=== PATIENT | male | born 1960 | race African-American/Black ===

== ENCOUNTER 2017-08-14 10:39 | Inpatient (IN) | payer MEDICAID ==
--- NOTE | 2017-08-14 11:00 | ED Physician Chart ---
ED Chief Complaint/HPI - Patient Information Date Seen:: 08/14/17 Time Seen:: 10:58 Chief Complaint:: HEMATURIA UNKN ONSET History of Present Illness:: THIS 57 YEAR OLD MALE WAS SENT TO THE ER FOR EVALUATION OF HEMATURIA. THE PT HAS MS AND IS UNABLE TO TALK OR COMMUNICATE. THE ONSE5T OF THE HEMATURIA WAS 6 AM THIS MORNING. NO REPORTED FEVER BUT WE ARE CHECKING A RECTAL TEMP. NO FURTHER INFORMATION ACCOMPANIED THE PATIENT. Allergies:: Allergies Allergy/AdvReac Type Severity Reaction Status Date / Time Penicillins [PCN] AdvReac Verified 08/14/17 10:47 Vitals:: Vital Signs - 8 hr 08/14/17 10:47 Temp 99.7 F HR 120 RR 15 BP 89/63 O2 Sat % 100 Family Medical History - Family Member Mother History Unknown: Yes ED Assessment - Assessment General Assessment: PT MORE ALERT WITH SPONTANEOUS EYE OPENING. BP AT 1208 HRS OF 116/72 ( BP AT ED Septic Shock - . Is Septic Shock (SBP<90, OR Lactate>4 mmol\L) present?: No - <6hrs of presentation: Vital Signs: Vital Signs - 8 hr 08/14/17 10:47 Temp 99.7 F HR 120 RR 15 BP 89/63 O2 Sat % 100 ED Discharge Plan - Patient Disposition Admit/Discharge/Transfer: Acute Care w/in this hosp
[2017-08-14] MEDS ORDERED: Sodium Chloride 0.9% 1,000 ML IV ONE (11:10)
[2017-08-14] MEDS ORDERED: Sodium Chloride 0.9% 500 ML IV ONE (11:13)
[2017-08-14] MEDS ORDERED: Levofloxacin 750mg/150mL 750 MG/150 ML BAG IV ONE ×2 (11:20→12:26)
[2017-08-14 11:45] LABS: HEMATOCRIT 39.3 % (41.0-60); HEMOGLOBIN 13.1 gm/dL (12-16); MEAN CELL VOLUME 87.3 fl (80-99); MEAN CORPUSCULAR HEMOGLOBIN 29.1 pg (26.0-30.0); MEAN CORPUSCULAR HGB CONC 33.3 pg (28.0-36.0); MEAN PLATELET VOLUME 7.3 fl; PLATELET COUNT 623 Th/cmm (150-400); RED CELL DISTRIBUTION WIDTH 13.7 % (11.5-20.0)
[2017-08-14 11:49] LABS: MANUAL DIFF REQUIRED? YES; WHITE BLOOD COUNT 17.2 Th/cmm (4.8-10.8)
[2017-08-14 12:06] LABS: ALB/GLOB RATIO 0.6 (1.0-1.8); ALKALINE PHOSPHATASE 96 U/L (34-104); BILIRUBIN,TOTAL 0.6 mg/dL (0.3-1.0); BUN - UREA NITROGEN 24 mg/dL (7-25); CALCIUM SERUM 9.4 mg/dL (8.6-10.3); CARBON DIOXIDE 24.4 mEq/L (21.0-31.0); CHLORIDE 103 mEq/L (98-107); CREATININE - SERUM 0.9 mg/dL (0.7-1.3); GFR AFRICAN-AMERICAN > 60.0 ml/min (>90); GFR NON AFRICAN-AMERICAN > 60.0 ml/min; GLUCOSE 126 mg/dL (70-105); POTASSIUM SERUM 4.4 mEq/L (3.5-5.1); SGOT 21 U/L (13-39); SGPT/ALT 22 U/L (7-52); SODIUM SERUM 136 mEq/L (136-145); TOTAL PROTEIN,SERUM 8.4 gm/dL (6.0-8.3)
[2017-08-14 12:09] LABS: BAND NEUTROPHILE 7 % (0-10); NEUTROPHILS 83 % (40-80); TOTAL CELLS COUNTED 100
[2017-08-14 12:10] LABS: BASOPHIL 1 % (0-3); LYMPHOCYTE 3 % (20-50); MONOCYTE 6 % (2-10); PLATELET ESTIMATE INCREASED PLATELETS (NORMAL)
[2017-08-14 12:41] LABS: URINE MICROSCOPIC INDICATED? YES; URINE SOURCE RANDOM
[2017-08-14 12:52] LABS: URINE BILIRUBIN SMALL (NEGATIVE); URINE BLOOD LARGE (NEGATIVE); URINE GLUCOSE (UA) 100 mg/dL (NEGATIVE); URINE KETONE NEGATIVE (NEGATIVE); URINE LEUKOCYTE ESTERASE TRACE (NEGATIVE); URINE NITRATE POSITIVE (NEGATIVE); URINE PROTEIN >=300 mg/dL (NEGATIVE)
[2017-08-14 13:16] LABS: URINE CLARITY BLOODY (CLEAR); URINE COLOR RED
[2017-08-14 13:20] LABS: URINE RBC >100 /hpf (0-5)
[2017-08-14] MEDS ORDERED: Morphine Sulfate 2 mg/mL 1mL Syr IVP PRN (14:50)
[2017-08-14] MEDS: D5-0.9%NS 1,000 ML IV SCH (15:31)
[2017-08-14 15:51] LABS: INR 1.17 (0.5-1.4); PROTHROMBIN TIME (TEST) 12.3 SECONDS (9.5-11.5)
--- NOTE | 2017-08-14 16:46 | History & Physical ---
ADMIT DATE: 08/14/2017 CHIEF COMPLAINT: Gross blood in the urine. HISTORY OF PRESENT ILLNESS: This is a 57-year-old male with history of multiple sclerosis, multiple decubitus ulcerations and malnutrition admitted from nursing facility secondary to gross blood in the urine. The patient was brought in the ER, also with a urinary tract infection. The patient is nonverbal and not interactive. PAST MEDICAL HISTORY: As mentioned in history of present illness. PAST SURGICAL HISTORY: Unable to obtain from the patient. ALLERGIES: PENICILLIN. MEDICATIONS: The patient is on multivitamin, zinc, aspirin, baclofen, and Copaxone. FAMILY HISTORY: Noncontributory. SOCIAL HISTORY: The patient [facility] in a prison. The patient requiring 24-hour total care. REVIEW OF SYSTEMS: This is limited secondary to the patient's comatose. We will try to obtain more detailed review of systems at a later date by talking with family members ____ number [phone], also try to get more information from nursing staff and ____ nursing facility at #[phone] as well as from Dr. Quiñones. I will follow the patient. PHYSICAL EXAMINATION: VITAL SIGNS: Blood pressure 116/73, respirations 20, pulse 114, temperature 99. GENERAL: Elderly male, appears chronically ill. NECK: Supple. No mass. LUNGS: Equal breath sounds, few rhonchi. HEART: Regular rate and rhythm without appreciable murmurs. ABDOMEN: Soft, globular. EXTREMITIES: Positive excoriations, atrophy, decubitus ulcer ____. LABORATORY DATA: WBC 17, hemoglobin 18, platelets is 623, BUN 24, creatinine 0.9, blood sugar 126, albumin 3.0. UA, positive nitrite and leukocyte esterase. ASSESSMENT AND PLAN: 1. Sepsis. 2. Leukocytosis. 3. UTI. 4. Decubitus ulcer. 5. Multiple sclerosis. 6. Schizoaffective disorder. 7. Moderate protein-calorie malnutrition. We will continue with IV hydration, IV antibiotic. We will irrigate the bladder. Urology has been consulted. Continue with current care. Follow consult recommendations. JOB# [id number]
[2017-08-14] MEDS ORDERED: GLATIRAMER ACETATE 20 MG SQ SCH (17:00)
[2017-08-14] MEDS: Levofloxacin 500mg/100mL 500 MG/100 ML BAG IV SCH (17:19)
--- NOTE | 2017-08-14 17:56 | Consultation ---
DATE OF CONSULTATION: UROLOGY CONSULTATION REASON FOR CONSULTATION: Seen for gross hematuria. HISTORY OF PRESENT ILLNESS: This is a 57-year-old male who came to the Emergency Room with gross hematuria in the Salmeron catheter, this started at 6:00 a.m. The patient is here from a [facility] and does not provide any history. We are calling the [facility] to get more information. Apparently, he is bedridden with contractures and has a Salmeron catheter for unknown period of time. There is no family member at the bedside either. ALLERGIES: PENICILLIN. HOME MEDICATIONS: Tylenol, aspirin, baclofen, Copaxone, vitamins, and zinc. PAST SURGICAL HISTORY: Unknown. PAST MEDICAL HISTORY: Apparently multiple sclerosis, but no other information is available. REVIEW OF SYSTEMS: No fever recorded, chest pain, coughing, or shortness of breath reported. He is tolerating the G-tube feeding. There are no skin lesions seen, but he has contractures in all 4 extremities. PHYSICAL EXAMINATION: GENERAL: On exam, he is noncommunicative, has a mask-like appearance. VITAL SIGNS: Heart rate 112, blood pressure 116/72, temperature 99.7, highest recorded so far. HEAD AND NECK: Normocephalic. Trachea central. Pupils equal and reactive. No jaundice. Thyroid and lymph nodes not palpable. Carotid bruit absent. CHEST: Symmetrical. LUNGS: Clear. No rales or rhonchi. HEART: Sounds normal in sinus rhythm, no murmur. ABDOMEN: Somewhat firm. Bladder seems to be palpable and distended, but the patient is unable to relax and therefore exam is difficult. For the same reason, cannot palpate any organs or masses or hernia. GENITALIA: Unremarkable. Salmeron catheter size 16 with gross thick blood. The nurses irrigated the catheter at my instruction, but did not get any clots. RECTAL: Deferred. EXTREMITIES: Contracted, but without pedal edema. NEUROLOGIC: Unable to test, seems to have quadriparesis. LABORATORY DATA: White count 17.2, hemoglobin 13.1, and platelets 623. PT/INR 1.1, PTT normal. Electrolytes normal. BUN 24, creatinine 0.9, and glucose 126. Liver functions are normal. Urine shows trace leukocytes, but a lot of blood. IMPRESSION: 1. Gross hematuria either from catheter related trauma or cystitis, rule out upper tract pathology. Recommend call and get information from the [facility], specifically any workup in the last 6 months with ultrasound or CT scan. 2. Question is to find out if he ever had bleeding again and any urologic surgery. Lastly how long he has had the Salmeron catheter and how often it is being changed and history of urinary tract infection so far. After this for the line of treatment and testing can be determined. Ultrasound of the kidneys and bladder is being performed as I dictate the note. He may require cystoscopy and clot evacuation if his bladder is distended with clots and we are unable to remove them with a larger Salmeron catheter. 3. Multiple sclerosis, possibly an unknown neurological condition, making him noncommunicative. 4. G-tube dependency. Thank you for the referral. JOB# [id number]
[2017-08-15] MEDS: D5-0.9%NS 1,000 ML IV SCH ×2 (05:22→19:10)
[2017-08-15 06:33] LABS: HEMOGLOBIN 11.1 gm/dL (12-16); LYMPHOCYTE ABSOLUTE 0.4 Th/cmm (1.5-3.0); MANUAL DIFF REQUIRED? YES; MEAN CELL VOLUME 86.7 fl (80-99); MEAN CORPUSCULAR HEMOGLOBIN 29.4 pg (26.0-30.0); MEAN CORPUSCULAR HGB CONC 33.9 pg (28.0-36.0); MEAN PLATELET VOLUME 7.4 fl; MONOCYTE ABSOLUTE 0.3 Th/cmm (0.3-1.0); NEUTROPHILE ABSOLUTE 17.1 Th/cmm (1.8-8.0); RED BLOOD COUNT 3.77 Mil/cmm (4.30-5.70); RED CELL DISTRIBUTION WIDTH 13.8 % (11.5-20.0)
[2017-08-15 06:48] LABS: ALB/GLOB RATIO 0.6 (1.0-1.8); ALBUMIN 2.5 gm/dL (4.2-5.5); ALKALINE PHOSPHATASE 94 U/L (34-104); ANION GAP 11.6 (7.0-16.0); BILIRUBIN,TOTAL 0.6 mg/dL (0.3-1.0); BUN - UREA NITROGEN 37 mg/dL (7-25); CALCIUM SERUM 8.8 mg/dL (8.6-10.3); CARBON DIOXIDE 20.4 mEq/L (21.0-31.0); CHLORIDE 110 mEq/L (98-107); CREATININE - SERUM 1.4 mg/dL (0.7-1.3); GFR AFRICAN-AMERICAN > 60.0 ml/min (>90); GFR NON AFRICAN-AMERICAN 55.3 ml/min; GLUCOSE 145 mg/dL (70-105); SGOT 28 U/L (13-39); SGPT/ALT 20 U/L (7-52); SODIUM SERUM 138 mEq/L (136-145)
[2017-08-15 07:05] LABS: WHITE BLOOD COUNT 17.8 Th/cmm (4.8-10.8)
[2017-08-15 07:06] LABS: HEMATOCRIT 32.7 % (41.0-60); PLATELET COUNT 492 Th/cmm (150-400)
[2017-08-15] MEDS: Multivitamin w/ Minerals Tab PO SCH (08:36)
[2017-08-15] MEDS ORDERED: Non-Formulary Item 1 EA (Zinc Sulfate [Zinc Sulfate] 220 MG) PO SCH (09:00)
--- NOTE | 2017-08-15 10:15 | Diagnostic Imaging Report ---
Portable chest x-ray History: Fever Allowing for portable technique the heart size is normal. No focal pulmonary parenchymal processes. No hilar or mediastinal abnormalities. Metallic density projects over the left upper abdomen. Impression: 1. No acute pulmonary processes 2. Metallic density projecting over the left upper abdomen
--- NOTE | 2017-08-15 10:19 | Diagnostic Imaging Report ---
Renal ultrasound HISTORY: Hematuria The right kidney measures 12.7 x 6.1 x 5.2 cm. A 5 mm slightly echogenic density is noted in the medullary region. This may be related to a calculus. No hydronephrosis. The left kidney measures 11.1 x 6.0 x 5.7 cm. No focal lesions. No hydronephrosis. Intraluminal densities noted within the urinary bladder. In view the patient's history, findings may be associated with hematoma. A reported Salmeron catheter is not sonographically identified within the bladder lumen. IMPRESSION: 1. 5 mm echogenic density within the medullary region of the right kidney. This may be related to a calculus. No hydronephrosis. If necessary, a CT scan would provide additional assessment. 2. Intraluminal density/debris within the urinary bladder. In view the patient's history, findings may be associated with hematoma 3. Of note is that a reported Salmeron catheter is not visualized within the urinary bladder lumen. Location should be confirmed.
[2017-08-15 11:43] LABS: BAND NEUTROPHILE 10 % (0-10); LYMPHOCYTE 2 % (20-50); MONOCYTE 1 % (2-10); NEUTROPHILS 87 % (40-80); TOTAL CELLS COUNTED 100
[2017-08-15 11:44] LABS: PLATELET ESTIMATE INCREASED PLATELETS (NORMAL)
[2017-08-15] MEDS: Levofloxacin 500mg/100mL 500 MG/100 ML BAG IV SCH (14:01)
--- NOTE | 2017-08-15 15:43 | Internal Medicine Prog Note ---
Internal Medicine Subjective - Subjective Patient seen and examined:: with staff, chart reviewed Patient is:: asleep, interactive, eyes closed, confused Patient Complaints of:: pain with urination Per staff patient has:: noncompliant, confused Internal Medicine Objective - Results Result Diagrams: 08/15/17 05:45 08/15/17 05:45 Recent Labs: Laboratory Last Values WBC 17.8 Th/cmm (4.8-10.8) H 08/15/17 05:45 RBC 3.77 Mil/cmm (4.30-5.70) L 08/15/17 05:45 Hgb 11.1 gm/dL (12-16) L 08/15/17 05:45 Hct 32.7 % (41.0-60) L D 08/15/17 05:45 MCV 86.7 fl (80-99) 08/15/17 05:45 MCH 29.4 pg (26.0-30.0) 08/15/17 05:45 MCHC Differential 33.9 pg (28.0-36.0) 08/15/17 05:45 RDW 13.8 % (11.5-20.0) 08/15/17 05:45 Plt Count 492 Th/cmm (150-400) H D 08/15/17 05:45 MPV 7.4 fl 08/15/17 05:45 Band Neutrophils % 10 % (0-10) 08/15/17 05:45 Neutrophils (Manual) 87 % (40-80) H 08/15/17 05:45 Lymphocytes 2 % (20-50) L 08/15/17 05:45 Monocytes 1 % (2-10) L 08/15/17 05:45 Basophils 1 % (0-3) 08/14/17 11:23 Platelet Estimate INCREASED PLATELETS (NORMAL) 08/15/17 05:45 PT 12.3 SECONDS (9.5-11.5) H 08/14/17 15:28 INR 1.17 (0.5-1.4) 08/14/17 15:28 PTT (Actin FS) 33.8 SECONDS (26.0-38.0) 08/14/17 15:28 Sodium 138 mEq/L (136-145) 08/15/17 05:45 Potassium 4.0 mEq/L (3.5-5.1) 08/15/17 05:45 Chloride 110 mEq/L (98-107) H 08/15/17 05:45 Carbon Dioxide 20.4 mEq/L (21.0-31.0) L 08/15/17 05:45 Anion Gap 11.6 (7.0-16.0) 08/15/17 05:45 BUN 37 mg/dL (7-25) H 08/15/17 05:45 Creatinine 1.4 mg/dL (0.7-1.3) H 08/15/17 05:45 Est GFR ( Amer) > 60.0 ml/min (>90) 08/15/17 05:45 Est GFR (Non-Af Amer) 55.3 ml/min 08/15/17 05:45 BUN/Creatinine Ratio 26.4 08/15/17 05:45 Glucose 145 mg/dL (70-105) H 08/15/17 05:45 POC Glucose 143 MG/DL (70 - 105) H 08/14/17 17:42 Whole Bld Lactic Acid 1.56 mmol/L (0.60-1.99) 08/14/17 11:23 Calcium 8.8 mg/dL (8.6-10.3) 08/15/17 05:45 Total Bilirubin 0.6 mg/dL (0.3-1.0) 08/15/17 05:45 AST 28 U/L (13-39) 08/15/17 05:45 ALT 20 U/L (7-52) 08/15/17 05:45 Alkaline Phosphatase 94 U/L (34-104) 08/15/17 05:45 B-Natriuretic Peptide < 5.0 pg/mL (5.0-100.0) L 08/15/17 05:45 Total Protein 7.0 gm/dL (6.0-8.3) 08/15/17 05:45 Albumin 2.5 gm/dL (4.2-5.5) L 08/15/17 05:45 Globulin 4.5 gm/dL 08/15/17 05:45 Albumin/Globulin Ratio 0.6 (1.0-1.8) L 08/15/17 05:45 Urine Source RANDOM 08/14/17 12:30 Urine Color RED 08/14/17 12:30 Urine Clarity BLOODY (CLEAR) 08/14/17 12:30 Urine pH 8.0 (4.6 - 8.0) 08/14/17 12:30 Ur Specific [place] 1.020 (1.005-1.030) 08/14/17 12:30 Urine Protein >=300 mg/dL (NEGATIVE) 08/14/17 12:30 Urine Glucose (UA) 100 mg/dL (NEGATIVE) H 08/14/17 12:30 Urine Ketones NEGATIVE mg/dL (NEGATIVE) 08/14/17 12:30 Urine Blood LARGE (NEGATIVE) H 08/14/17 12:30 Urine Nitrate POSITIVE (NEGATIVE) H 08/14/17 12:30 Urine Bilirubin SMALL (NEGATIVE) H 08/14/17 12:30 Urine Urobilinogen 1.0 E.U./dL (0.2 - 1.0) 08/14/17 12:30 Ur Leukocyte Esterase TRACE (NEGATIVE) H 08/14/17 12:30 Urine RBC >100 /hpf (0-5) H 08/14/17 12:30 Urine WBC /hpf (0-5) 08/14/17 12:30 Ur Epithelial Cells /lpf (FEW) 08/14/17 12:30 Urine Bacteria /hpf (NONE SEEN) 08/14/17 12:30 - Physical Exam Vitals and I&O: Vital Signs Temp 99.4 F 08/15/17 13:00 Pulse 81 08/15/17 13:00 Resp 18 08/15/17 13:00 BP 90/57 08/15/17 13:00 Pulse Ox 100 08/15/17 13:00 Intake & Output 08/14/17 08/15/17 08/15/17 18:59 06:59 18:59 Intake Total 1100 Output Total 650 Balance 450 Weight (lbs) 71.668 kg Intake: Intake, IV Amount 1100 D5-0.9%Ns 1,000 ml @ 80 1000 mls/hr IV .[id number] [facility] Rx #:[id number] Levofloxacin 500mg/100mL 100 500 mg In 100 ml @ 100 mls/hr IV Q24HR [facility] Rx#: [id number] Output: Urine 650 Other: # Bowel Movements 1,258 Active Medications: Current Medications Acetaminophen (Tylenol) 650 mg PO Q4HR PRN PRN Reason: Pain (Mild) Stop: 10/13/17 14:46 Albuterol Sulfate (Albuterol 2.5mg/3ml Neb Ud) 2.5 mg HHN Q2HRT PRN PRN Reason: Shortness of Breath or Wheeze Stop: 10/13/17 14:49 Baclofen (Lioresal) 5 mg PO TID [facility] Stop: 10/13/17 20:59 Last Admin: 08/15/17 13:44 Dose: 5 mg Dextrose/Sodium Chloride (D5-0.9%Ns) 1,000 mls @ 80 mls/hr IV .[id number] [facility] Stop: 10/13/17 14:59 Last Admin: 08/15/17 05:22 Dose: 80 mls/hr Meropenem 500 mg/ Sodium (Chloride) 100 mls @ 100 mls/hr IV Q12H [facility] Stop: 10/14/17 15:40 Ipratropium [place] (Atrovent Neb 0.5mg/2.5ml) 0.5 mg IH Q2HRT PRN PRN Reason: Shortness of Breath or Wheeze Stop: 10/13/17 14:49 Morphine Sulfate (Morphine) 2 mg IVP Q4H PRN PRN Reason: Pain (Severe) Stop: 10/13/17 14:49 Ondansetron HCl (Zofran) 4 mg IV Q8H PRN PRN Reason: Nausea / Vomiting Stop: 10/13/17 14:49 Zinc Sulfate (Zinc Sulfate) 220 mg PO DAILY [facility] Stop: 10/14/17 08:59 Last Admin: 08/15/17 08:36 Dose: 220 mg General: demented HEENT: NC/AT, PERRLA, thinning hair, poor dentition Neck: Supple, deformity Lungs: CTAB Cardiovascular: RRR, Normal S1, Normal S2, without murmur Abdomen: soft, non-tender, globular, non-distended Extremities: excoriation, ecchymosis, contracture Neurological: no change Internal Medicine Assmt/Plan - Assessment Assessment: ASSESSMENT AND PLAN: 1. Sepsis.bacteremia 2. Leukocytosis. 3. UTI. 4. Decubitus ulcer. 5. Multiple sclerosis. 6. Schizoaffective disorder. 7. Moderate protein-calorie malnutrition. - Plan Plan: will add gram neg coverage We will continue with IV hydration, IV antibiotic. We will irrigate the bladder. Urology has been consulted. Continue with current care. Follow consult recs
[2017-08-15] MEDS ORDERED: fentaNYL Citrate 100 mcg/2mL Vial ONE (16:53)
[2017-08-15] MEDS ORDERED: Propofol **SURGERY USE ONLY** 20 ML IV ONE (17:03)
[2017-08-15] MEDS ORDERED: Neostigmine 10mg/10mL Vial ONE (17:04)
[2017-08-15] MEDS: Meropenem 500 MG in Sodium Chloride 0.9% 100 ML IV SCH (19:09)
--- NOTE | 2017-08-16 03:18 | Operative Report ---
DATE OF SURGERY: 08/15/2017 PREOPERATIVE DIAGNOSIS: Gross hematuria, possibly Salmeron trauma. POSTOPERATIVE DIAGNOSIS: Gross hematuria, possibly Salmeron trauma. SURGEON: Hollis Jane M.D. NAME OF PROCEDURE: Cystoscopy, clot evacuation, and insertion of Salmeron catheter under general anesthesia. INDICATIONS: The patient is an elderly gentleman who had a Salmeron replaced in his assisted with resultant gross hematuria. Another attempt in hospital here was also unsuccessful with continued gross hematuria. A cystoscopy was therefore recommended. FINDINGS: Cystoscopy revealed there was a false passage in the bulbous urethra at 6 o'clock position, which was the source of the bleeding and bladder had few small clots. Due to equipment failure, there was a very limited amount of clot evacuation that could be achieved, but fortunately there were only few clots in the bladder. The Salmeron was placed now with the help of a guidewire to bypass the false passage and ended up properly in the bladder with almost clear urine. DESCRIPTION OF PROCEDURE: The patient was brought to the operating room, prepped and draped in dorsal lithotomy position after general anesthesia was induced. Cystoscopy was carried out and the false passage was noted at 6 o'clock with blood clots. Going along the 12 o'clock position, the prostate was examined and found to be mildly obstructing, small and not the source of bleeding. The bladder was entered and a few small clots were visible but our irrigating syringe did not function and so it was difficult to evacuate these clots. With multiple attempts and make shift arrangements, some of the clots were removed. Then, I was able to examine the prostatic fossa and confirmed absence of bleeding from this area, so that I did not have to fulgurate anything. Grossly, the bladder also was unremarkable and even though I could not examine it very well. I felt most likely the source to be a bulbous urethra. I then removed the scope and attempted a Salmeron, but it would not go in and ended up in the false passage. Therefore, I put in a Glidewire through a cystoscope and then over it, I advanced a 22 three-way Salmeron into the bladder and was able to drain blood tinged almost clear urine and the catheter irrigated very well at this point. Procedure was terminated with blood less than 50 mL. No complications. JOB# [id number]
[2017-08-16] MEDS: Meropenem 500 MG in Sodium Chloride 0.9% 100 ML IV SCH ×2 (04:03→14:49)
[2017-08-16 06:24] LABS: % BASOPHILS 0.2 % (0.0-2.0); % EOSINOPHILS 0.4 % (0.0-5.0); % LYMPHOCYTES 12.5 % (20.0-50.0); % MONOCYTES 9.5 % (2.0-10.0); % NEUTROPHILS 77.4 % (40.0-80.0); EOSINOPHILE ABSOLUTE 0.1 Th/cmm (0.1-0.4); HEMOGLOBIN 9.7 gm/dL (12-16); LYMPHOCYTE ABSOLUTE 1.8 Th/cmm (1.5-3.0); MEAN CELL VOLUME 88.3 fl (80-99); MEAN CORPUSCULAR HEMOGLOBIN 29.8 pg (26.0-30.0); MEAN CORPUSCULAR HGB CONC 33.8 pg (28.0-36.0); MEAN PLATELET VOLUME 7.2 fl; MONOCYTE ABSOLUTE 1.4 Th/cmm (0.3-1.0); NEUTROPHILE ABSOLUTE 11.1 Th/cmm (1.8-8.0); PLATELET COUNT 423 Th/cmm (150-400); RED BLOOD COUNT 3.26 Mil/cmm (4.30-5.70); RED CELL DISTRIBUTION WIDTH 13.5 % (11.5-20.0)
[2017-08-16 06:30] LABS: ALB/GLOB RATIO 0.6 (1.0-1.8); ALBUMIN 2.3 gm/dL (4.2-5.5); ALKALINE PHOSPHATASE 87 U/L (34-104); BILIRUBIN,TOTAL 0.4 mg/dL (0.3-1.0); BUN - UREA NITROGEN 27 mg/dL (7-25); CARBON DIOXIDE 23.6 mEq/L (21.0-31.0); CHLORIDE 114 mEq/L (98-107); CREATININE - SERUM 0.7 mg/dL (0.7-1.3); GFR AFRICAN-AMERICAN > 60.0 ml/min (>90); GFR NON AFRICAN-AMERICAN > 60.0 ml/min; GLUCOSE 114 mg/dL (70-105); POTASSIUM SERUM 3.6 mEq/L (3.5-5.1); SGOT 48 U/L (13-39); SGPT/ALT 30 U/L (7-52); SODIUM SERUM 141 mEq/L (136-145); TOTAL PROTEIN,SERUM 6.4 gm/dL (6.0-8.3)
[2017-08-16 06:32] LABS: WHITE BLOOD COUNT 14.4 Th/cmm (4.8-10.8)
[2017-08-16 06:33] LABS: HEMATOCRIT 28.8 % (41.0-60)
[2017-08-16] MEDS: Multivitamin w/ Minerals Tab PO SCH (09:17)
[2017-08-16] MEDS: D5-0.9%NS 1,000 ML IV SCH (09:21)
[2017-08-16] MEDS ORDERED: Albumin 25% 25gm/100mL 25 GM/100 ML BTL IV ONE (12:59)
[2017-08-16] MEDS ORDERED: Morphine Sulfate 4 mg/mL 1mL Syr IVP PRN (12:59)
--- NOTE | 2017-08-16 15:14 | Internal Medicine Prog Note ---
Internal Medicine Subjective - Subjective Patient seen and examined:: with staff, chart reviewed Patient is:: asleep, interactive, eyes closed, confused Patient Complaints of:: pain with urination Per staff patient has:: noncompliant, confused Internal Medicine Objective - Results Result Diagrams: 08/16/17 05:35 08/16/17 05:35 Recent Labs: Laboratory Last Values WBC 14.4 Th/cmm (4.8-10.8) H 08/16/17 05:35 RBC 3.26 Mil/cmm (4.30-5.70) L 08/16/17 05:35 Hgb 9.7 gm/dL (12-16) L 08/16/17 05:35 Hct 28.8 % (41.0-60) L D 08/16/17 05:35 MCV 88.3 fl (80-99) 08/16/17 05:35 MCH 29.8 pg (26.0-30.0) 08/16/17 05:35 MCHC Differential 33.8 pg (28.0-36.0) 08/16/17 05:35 RDW 13.5 % (11.5-20.0) 08/16/17 05:35 Plt Count 423 Th/cmm (150-400) H 08/16/17 05:35 MPV 7.2 fl 08/16/17 05:35 Neutrophils % 77.4 % (40.0-80.0) 08/16/17 05:35 Band Neutrophils % 10 % (0-10) 08/15/17 05:45 Lymphocytes % 12.5 % (20.0-50.0) L 08/16/17 05:35 Monocytes % 9.5 % (2.0-10.0) 08/16/17 05:35 Eosinophils % 0.4 % (0.0-5.0) 08/16/17 05:35 Basophils % 0.2 % (0.0-2.0) 08/16/17 05:35 Neutrophils (Manual) 87 % (40-80) H 08/15/17 05:45 Lymphocytes 2 % (20-50) L 08/15/17 05:45 Monocytes 1 % (2-10) L 08/15/17 05:45 Basophils 1 % (0-3) 08/14/17 11:23 Platelet Estimate INCREASED PLATELETS (NORMAL) 08/15/17 05:45 PT 12.3 SECONDS (9.5-11.5) H 08/14/17 15:28 INR 1.17 (0.5-1.4) 08/14/17 15:28 PTT (Actin FS) 33.8 SECONDS (26.0-38.0) 08/14/17 15:28 Sodium 141 mEq/L (136-145) 08/16/17 05:35 Potassium 3.6 mEq/L (3.5-5.1) 08/16/17 05:35 Chloride 114 mEq/L (98-107) H 08/16/17 05:35 Carbon Dioxide 23.6 mEq/L (21.0-31.0) 08/16/17 05:35 Anion Gap 7.0 (7.0-16.0) 08/16/17 05:35 BUN 27 mg/dL (7-25) H 08/16/17 05:35 Creatinine 0.7 mg/dL (0.7-1.3) 08/16/17 05:35 Est GFR ( Amer) > 60.0 ml/min (>90) 08/16/17 05:35 Est GFR (Non-Af Amer) > 60.0 ml/min 08/16/17 05:35 BUN/Creatinine Ratio 38.6 08/16/17 05:35 Glucose 114 mg/dL (70-105) H 08/16/17 05:35 POC Glucose 143 MG/DL (70 - 105) H 08/14/17 17:42 Whole Bld Lactic Acid 1.56 mmol/L (0.60-1.99) 08/14/17 11:23 Calcium 9.0 mg/dL (8.6-10.3) 08/16/17 05:35 Total Bilirubin 0.4 mg/dL (0.3-1.0) 08/16/17 05:35 AST 48 U/L (13-39) H 08/16/17 05:35 ALT 30 U/L (7-52) 08/16/17 05:35 Alkaline Phosphatase 87 U/L (34-104) 08/16/17 05:35 B-Natriuretic Peptide < 5.0 pg/mL (5.0-100.0) L 08/15/17 05:45 Total Protein 6.4 gm/dL (6.0-8.3) 08/16/17 05:35 Albumin 2.3 gm/dL (4.2-5.5) L 08/16/17 05:35 Globulin 4.1 gm/dL 08/16/17 05:35 Albumin/Globulin Ratio 0.6 (1.0-1.8) L 08/16/17 05:35 Urine Source RANDOM 08/14/17 12:30 Urine Color RED 08/14/17 12:30 Urine Clarity BLOODY (CLEAR) 08/14/17 12:30 Urine pH 8.0 (4.6 - 8.0) 08/14/17 12:30 Ur Specific [place] 1.020 (1.005-1.030) 08/14/17 12:30 Urine Protein >=300 mg/dL (NEGATIVE) 08/14/17 12:30 Urine Glucose (UA) 100 mg/dL (NEGATIVE) H 08/14/17 12:30 Urine Ketones NEGATIVE mg/dL (NEGATIVE) 08/14/17 12:30 Urine Blood LARGE (NEGATIVE) H 08/14/17 12:30 Urine Nitrate POSITIVE (NEGATIVE) H 08/14/17 12:30 Urine Bilirubin SMALL (NEGATIVE) H 08/14/17 12:30 Urine Urobilinogen 1.0 E.U./dL (0.2 - 1.0) 08/14/17 12:30 Ur Leukocyte Esterase TRACE (NEGATIVE) H 08/14/17 12:30 Urine RBC >100 /hpf (0-5) H 08/14/17 12:30 Urine WBC /hpf (0-5) 08/14/17 12:30 Ur Epithelial Cells /lpf (FEW) 08/14/17 12:30 Urine Bacteria /hpf (NONE SEEN) 08/14/17 12:30 - Physical Exam Vitals and I&O: Vital Signs Temp 97.4 F 08/16/17 11:54 Pulse 91 08/16/17 11:54 Resp 18 08/16/17 11:54 BP 75/45 08/16/17 11:54 Pulse Ox 98 08/16/17 11:54 Intake & Output 08/15/17 08/16/17 08/16/17 18:59 06:59 18:59 Intake Total 1100 5200 1000 Output Total 7300 Balance 1100 -2100 1000 Weight (lbs) 71.214 kg 71.214 kg Intake: Intake, IV Amount 0070 873 1556 D5-0.9%Ns 1,000 ml @ 80 1000 1000 mls/hr IV .[id number] [facility] Rx #:[id number] Levofloxacin 500mg/100mL 100 500 mg In 100 ml @ 100 mls/hr IV Q24HR [facility] Rx#: [id number] Meropenem 500 mg In 200 Sodium Chloride 0.9% 100 ml @ 100 mls/hr IV Q12H [facility] Rx#:[id number] Other 5000 Output: Urine 7300 Other: # Bowel Movements 1 Active Medications: Current Medications Acetaminophen (Tylenol) 650 mg PO Q4HR PRN PRN Reason: Pain (Mild) Stop: 10/13/17 14:46 Albuterol Sulfate (Albuterol 2.5mg/3ml Neb Ud) 2.5 mg HHN Q2HRT PRN PRN Reason: Shortness of Breath or Wheeze Stop: 10/13/17 14:49 Baclofen (Lioresal) 5 mg PO TID [facility] Stop: 10/13/17 20:59 Last Admin: 08/16/17 14:48 Dose: 5 mg Dextrose/Sodium Chloride (D5-0.9%Ns) 1,000 mls @ 80 mls/hr IV .[id number] [facility] Stop: 10/13/17 14:59 Last Admin: 08/16/17 09:21 Dose: 80 mls/hr Meropenem 500 mg/ Sodium (Chloride) 100 mls @ 100 mls/hr IV Q12H [facility] Stop: 10/14/17 15:40 Last Admin: 08/16/17 14:49 Dose: 100 mls/hr Ipratropium [place] (Atrovent Neb 0.5mg/2.5ml) 0.5 mg IH Q2HRT PRN PRN Reason: Shortness of Breath or Wheeze Stop: 10/13/17 14:49 Midodrine (Proamatine) 5 mg PO TID [facility] Stop: 10/15/17 13:59 Last Admin: 08/16/17 14:48 Dose: 5 mg Morphine Sulfate (Morphine) 1 mg IVP Q4H PRN PRN Reason: Pain (Severe) Stop: 10/13/17 14:49 Ondansetron HCl (Zofran) 4 mg IV Q8H PRN PRN Reason: Nausea / Vomiting Stop: 10/13/17 14:49 Zinc Sulfate (Zinc Sulfate) 220 mg PO DAILY [facility] Stop: 10/14/17 08:59 Last Admin: 08/16/17 09:16 Dose: 220 mg General: demented HEENT: NC/AT, PERRLA, thinning hair, poor dentition Neck: Supple, deformity Lungs: CTAB Cardiovascular: RRR, Normal S1, Normal S2, without murmur Abdomen: soft, non-tender, globular, non-distended Extremities: excoriation, ecchymosis, contracture Neurological: no change - Procedures Procedures: Procedures Procedure Code Date CYSTOSCOPY & URETER CATHETER 02156 08/14/17 EXTIRPATION OF MATTER FROM BLADDER, ENDO [id number] 08/14/17 INSERTION OF OTHER DEVICE INTO BLADDER, ENDO [id number] 08/14/17 Internal Medicine Assmt/Plan - Assessment Assessment: ASSESSMENT AND PLAN: 1. Sepsis.bacteremia 2. Leukocytosis. 3. UTI. 4. Decubitus ulcer. 5. Multiple sclerosis. 6. Schizoaffective disorder. 7. Moderate protein-calorie malnutrition. - Plan Plan: will add gram neg coverage We will continue with IV hydration, IV antibiotic. We will irrigate the bladder. Urology has been consulted. Continue with current care. Follow consult recs
--- NOTE | 2017-08-16 23:27 | Progress Notes ---
DATE: SUBJECTIVE: The patient is doing well after the cystoscopy and catheter placement. The urine is almost clear with irrigation. He does not complain of pain and has not had a fever. OBJECTIVE: VITAL SIGNS: Temperature 99.4, heart rate 105, blood pressure of 96/57. No fever since the procedure. ABDOMEN: Soft, nondistended, and nontender. Salmeron catheter, clear urine, occasionally pink tinged. EXTREMITIES: No edema, but severe contractures. CARDIOVASCULAR: Heart sounds, sinus rhythm, no murmur. LABORATORY DATA: White count 14.4, hemoglobin 9.7. Significant drop once again from yesterday. Electrolytes are normal. Chloride mildly elevated. BUN 27, creatinine 0.7, significantly improved from yesterday. IMPRESSION: 1. Urethral trauma with false passage and resultant gross hematuria. Status post cystoscopy, clot evacuation and proper placement of catheter. The patient should maintain this catheter for at least a month and/or little more until the false passage heals. After that, the first catheter change should be by urologist to avoid and prevent further injury in the same area. 2. History of multiple sclerosis and functional quadriplegia. No major change. 3. History of hepatitis B, stable. 4. History of hyperlipidemia. No change. JOB# [id number]
[2017-08-17] MEDS: Meropenem 500 MG in Sodium Chloride 0.9% 100 ML IV SCH ×2 (03:53→18:23)
[2017-08-17 06:23] LABS: % BASOPHILS 0.3 % (0.0-2.0); % EOSINOPHILS 1.1 % (0.0-5.0); % LYMPHOCYTES 17.1 % (20.0-50.0); % MONOCYTES 11.8 % (2.0-10.0); % NEUTROPHILS 69.7 % (40.0-80.0); EOSINOPHILE ABSOLUTE 0.1 Th/cmm (0.1-0.4); HEMATOCRIT 24.9 % (41.0-60); HEMOGLOBIN 8.3 gm/dL (12-16); LYMPHOCYTE ABSOLUTE 1.8 Th/cmm (1.5-3.0); MEAN CELL VOLUME 87.1 fl (80-99); MEAN CORPUSCULAR HEMOGLOBIN 29.1 pg (26.0-30.0); MEAN CORPUSCULAR HGB CONC 33.4 pg (28.0-36.0); MEAN PLATELET VOLUME 7.3 fl; MONOCYTE ABSOLUTE 1.2 Th/cmm (0.3-1.0); NEUTROPHILE ABSOLUTE 7.4 Th/cmm (1.8-8.0); PLATELET COUNT 403 Th/cmm (150-400); RED BLOOD COUNT 2.86 Mil/cmm (4.30-5.70); RED CELL DISTRIBUTION WIDTH 13.7 % (11.5-20.0); WHITE BLOOD COUNT 10.5 Th/cmm (4.8-10.8)
[2017-08-17] MEDS: D5-0.9%NS 1,000 ML IV SCH (06:26)
[2017-08-17 06:37] LABS: ANION GAP 6.5 (7.0-16.0); BUN - UREA NITROGEN 20 mg/dL (7-25); CALCIUM SERUM 8.8 mg/dL (8.6-10.3); CARBON DIOXIDE 24.5 mEq/L (21.0-31.0); CHLORIDE 114 mEq/L (98-107); CREATININE - SERUM 0.5 mg/dL (0.7-1.3); GFR AFRICAN-AMERICAN > 60.0 ml/min (>90); GFR NON AFRICAN-AMERICAN > 60.0 ml/min; GLUCOSE 107 mg/dL (70-105); SODIUM SERUM 142 mEq/L (136-145)
[2017-08-17] MEDS ORDERED: Potassium Chloride 40 MEQ, Lidocaine 1% 20mL Vial 25 MG in Sodium Chloride 0.9% 250 ML IV ONE (10:00)
[2017-08-17] MEDS: Multivitamin w/ Minerals Tab PO SCH (10:01)
[2017-08-17] MEDS ORDERED: Potassium Chloride 20 mEq ER Tab PO ONE (11:28)
--- NOTE | 2017-08-17 11:28 | Internal Medicine Prog Note ---
Internal Medicine Subjective - Subjective Service Date: 08/17/17 Patient is:: asleep, interactive, eyes closed, confused Patient Complaints of:: pain with urination Per staff patient has:: noncompliant, confused Internal Medicine Objective - Results Result Diagrams: 08/17/17 05:50 08/17/17 05:50 Recent Labs: Laboratory Last Values WBC 10.5 Th/cmm (4.8-10.8) 08/17/17 05:50 RBC 2.86 Mil/cmm (4.30-5.70) L 08/17/17 05:50 Hgb 8.3 gm/dL (12-16) L 08/17/17 05:50 Hct 24.9 % (41.0-60) L 08/17/17 05:50 MCV 87.1 fl (80-99) 08/17/17 05:50 MCH 29.1 pg (26.0-30.0) 08/17/17 05:50 MCHC Differential 33.4 pg (28.0-36.0) 08/17/17 05:50 RDW 13.7 % (11.5-20.0) 08/17/17 05:50 Plt Count 403 Th/cmm (150-400) H 08/17/17 05:50 MPV 7.3 fl 08/17/17 05:50 Neutrophils % 69.7 % (40.0-80.0) 08/17/17 05:50 Band Neutrophils % 10 % (0-10) 08/15/17 05:45 Lymphocytes % 17.1 % (20.0-50.0) L 08/17/17 05:50 Monocytes % 11.8 % (2.0-10.0) H 08/17/17 05:50 Eosinophils % 1.1 % (0.0-5.0) 08/17/17 05:50 Basophils % 0.3 % (0.0-2.0) 08/17/17 05:50 Neutrophils (Manual) 87 % (40-80) H 08/15/17 05:45 Lymphocytes 2 % (20-50) L 08/15/17 05:45 Monocytes 1 % (2-10) L 08/15/17 05:45 Basophils 1 % (0-3) 08/14/17 11:23 Platelet Estimate INCREASED PLATELETS (NORMAL) 08/15/17 05:45 PT 12.3 SECONDS (9.5-11.5) H 08/14/17 15:28 INR 1.17 (0.5-1.4) 08/14/17 15:28 PTT (Actin FS) 33.8 SECONDS (26.0-38.0) 08/14/17 15:28 Sodium 142 mEq/L (136-145) 08/17/17 05:50 Potassium 3.0 mEq/L (3.5-5.1) L 08/17/17 05:50 Chloride 114 mEq/L (98-107) H 08/17/17 05:50 Carbon Dioxide 24.5 mEq/L (21.0-31.0) 08/17/17 05:50 Anion Gap 6.5 (7.0-16.0) L 08/17/17 05:50 BUN 20 mg/dL (7-25) 08/17/17 05:50 Creatinine 0.5 mg/dL (0.7-1.3) L 08/17/17 05:50 Est GFR ( Amer) > 60.0 ml/min (>90) 08/17/17 05:50 Est GFR (Non-Af Amer) > 60.0 ml/min 08/17/17 05:50 BUN/Creatinine Ratio 40.0 08/17/17 05:50 Glucose 107 mg/dL (70-105) H 08/17/17 05:50 POC Glucose 143 MG/DL (70 - 105) H 08/14/17 17:42 Whole Bld Lactic Acid 1.56 mmol/L (0.60-1.99) 08/14/17 11:23 Calcium 8.8 mg/dL (8.6-10.3) 08/17/17 05:50 Total Bilirubin 0.4 mg/dL (0.3-1.0) 08/16/17 05:35 AST 48 U/L (13-39) H 08/16/17 05:35 ALT 30 U/L (7-52) 08/16/17 05:35 Alkaline Phosphatase 87 U/L (34-104) 08/16/17 05:35 B-Natriuretic Peptide 26.4 pg/mL (5.0-100.0) 08/17/17 05:50 Total Protein 6.4 gm/dL (6.0-8.3) 08/16/17 05:35 Albumin 2.3 gm/dL (4.2-5.5) L 08/16/17 05:35 Globulin 4.1 gm/dL 08/16/17 05:35 Albumin/Globulin Ratio 0.6 (1.0-1.8) L 08/16/17 05:35 Urine Source RANDOM 08/14/17 12:30 Urine Color RED 08/14/17 12:30 Urine Clarity BLOODY (CLEAR) 08/14/17 12:30 Urine pH 8.0 (4.6 - 8.0) 08/14/17 12:30 Ur Specific [place] 1.020 (1.005-1.030) 08/14/17 12:30 Urine Protein >=300 mg/dL (NEGATIVE) 08/14/17 12:30 Urine Glucose (UA) 100 mg/dL (NEGATIVE) H 08/14/17 12:30 Urine Ketones NEGATIVE mg/dL (NEGATIVE) 08/14/17 12:30 Urine Blood LARGE (NEGATIVE) H 08/14/17 12:30 Urine Nitrate POSITIVE (NEGATIVE) H 08/14/17 12:30 Urine Bilirubin SMALL (NEGATIVE) H 08/14/17 12:30 Urine Urobilinogen 1.0 E.U./dL (0.2 - 1.0) 08/14/17 12:30 Ur Leukocyte Esterase TRACE (NEGATIVE) H 08/14/17 12:30 Urine RBC >100 /hpf (0-5) H 08/14/17 12:30 Urine WBC /hpf (0-5) 08/14/17 12:30 Ur Epithelial Cells /lpf (FEW) 08/14/17 12:30 Urine Bacteria /hpf (NONE SEEN) 08/14/17 12:30 - Physical Exam Vitals and I&O: Vital Signs Temp 97.3 F 08/17/17 08:45 Pulse 79 08/17/17 08:45 Resp 16 08/17/17 08:45 BP 84/51 08/17/17 08:45 Pulse Ox 96 08/17/17 08:45 Intake & Output 08/16/17 08/17/17 08/17/17 18:59 06:59 18:59 Intake Total 1100 1100 Output Total 350 Balance 1100 750 Weight (lbs) 157 lb 157 lb 1.6 oz Intake: Intake, IV Amount 1100 1100 D5-0.9%Ns 1,000 ml @ 80 1000 1000 mls/hr IV .[id number] REPLACED BY [facility] Rx #:[id number] Meropenem 500 mg In 100 100 Sodium Chloride 0.9% 100 ml @ 100 mls/hr IV Q12H REPLACED BY [facility] Rx#:[id number] Output: Urine 350 Other: # Bowel Movements 0 Active Medications: Current Medications Acetaminophen (Tylenol) 650 mg PO Q4HR PRN PRN Reason: Pain (Mild) Stop: 10/13/17 14:46 Albuterol Sulfate (Albuterol 2.5mg/3ml Neb Ud) 2.5 mg HHN Q2HRT PRN PRN Reason: Shortness of Breath or Wheeze Stop: 10/13/17 14:49 Baclofen (Lioresal) 5 mg PO TID REPLACED BY [facility] Stop: 10/13/17 20:59 Last Admin: 08/17/17 10:01 Dose: 5 mg Dextrose/Sodium Chloride (D5-0.9%Ns) 1,000 mls @ 80 mls/hr IV .[id number] REPLACED BY [facility] Stop: 10/13/17 14:59 Last Admin: 08/17/17 06:26 Dose: 80 mls/hr Meropenem 500 mg/ Sodium (Chloride) 100 mls @ 100 mls/hr IV Q12H REPLACED BY [facility] Stop: 10/14/17 15:40 Last Infusion: 08/17/17 06:18 Dose: Infused Potassium Chloride 40 meq/Lidocaine HCl 25 mg/ Sodium Chloride 272.5 mls @ 68 mls/hr IV X1 ONE Stop: 08/17/17 14:00 Last Admin: 08/17/17 10:00 Dose: 68 mls/hr Ipratropium [place] (Atrovent Neb 0.5mg/2.5ml) 0.5 mg IH Q2HRT PRN PRN Reason: Shortness of Breath or Wheeze Stop: 10/13/17 14:49 Midodrine (Proamatine) 5 mg PO TID REPLACED BY [facility] Stop: 10/15/17 13:59 Last Admin: 08/17/17 10:02 Dose: 5 mg Morphine Sulfate (Morphine) 1 mg IVP Q4H PRN PRN Reason: Pain (Severe) Stop: 10/13/17 14:49 Ondansetron HCl (Zofran) 4 mg IV Q8H PRN PRN Reason: Nausea / Vomiting Stop: 10/13/17 14:49 Zinc Sulfate (Zinc Sulfate) 220 mg PO DAILY AJIT Stop: 10/14/17 08:59 Last Admin: 08/17/17 10:02 Dose: 220 mg General: demented HEENT: NC/AT, PERRLA, thinning hair, poor dentition Neck: Supple, deformity Lungs: CTAB Cardiovascular: RRR, Normal S1, Normal S2, without murmur Abdomen: soft, non-tender, globular, non-distended Extremities: excoriation, ecchymosis, contracture Neurological: no change - Procedures Procedures: Procedures Procedure Code Date CYSTOSCOPY & URETER CATHETER 11198 08/14/17 EXTIRPATION OF MATTER FROM BLADDER, ENDO [id number] 08/14/17 INSERTION OF OTHER DEVICE INTO BLADDER, ENDO [id number] 08/14/17 Internal Medicine Assmt/Plan - Assessment Assessment: urine culture +proteus mirabilis Sepsis bacteremia Leukocytosis. UTI. Decubitus ulcer. Schizoaffective disorder. Moderate protein-calorie malnutrition. - Plan Plan: continue ivabx ivf for hydration cbc/bmp in am continue current plan of care Nutritional Asmnt/Malnutr-PDOC - Dietary Evaluation Malnutrition Findings (Please click <Entered> for more info): Nutritional Asmnt/Malnutrition Start: 08/16/17 18: 05 Text: Status: Complete Freq: Document 08/16/17 18:05 LCHENG (Rec: 08/16/17 18:17 ALONDRAG [id number]) Nutritional Asmnt/Malnutrition Patient General Information Nutritional Screening High Risk Diagnosis hematuria, sepsis Pertinent Medical Hx/Surgical Hx multiple sclerosis, decubitus ulceration, malnutrition Subjective Information Pt is non verbal noted. Spoke with nurse, nurse reported pt eats well, consumed 80% of breakfast and lunch today. Per MD note, pt hadcystoscopy on 08/15. Current Diet Order/ Nutrition Support pureed Pertinent Medications D5-0.9%nx, zinc Pertinent Labs 08/16 Na 141, K 3.6, Cl 114, BUN 27, Glucose 114 08/14 GLucose 145, POC 143 Nutritional Hx/Data Height 5 ft 5 in Height (Calculated Centimeters) 165.1 Current Weight (lbs) 157 lb Weight (Calculated Kilograms) 71.2 Weight (Calculated Grams) 82300.0 [place] Body Weight 136 Body Mass Index (BMI) 26.1 Weight Status Overweight GI Symptoms GI Symptoms None Last BM 1 Difficult in: None Skin Integrity/Comment: decubitus ulceration to cyccyx Current %PO Good (75-100%) Estimated Nutritional Goals BEE in Kcals: Using Current wt Calories/Kcals/Kg 25-30 Kcals Calculated 9720-7675 Protein: Using Current wt Protein g/k-1.2 Protein Calculated 71-85 Fluid: ml 1775-2130ml (1ml/kcal) Nutritional Problem 1. Problem Problem increased nutrition needs ( protein0 Etiology increased metabolic demand for wound healing Signs/Symptoms: decubitus ulceration Intervention/Recommendation Comments 1. Continue with current diet as ordered. Recommend vitamin C to help with wound healing 2. Monitor PO intake, wt, labs and skin integrity 3. F/U as moderate risk in 3-5 days, 08/19-08/21 Expected Outcomes/Goals Expected Outcomes/Goals 1. PO intake to meet at least 75% of nutritional needs. 2. Wt stability, skin to remain intact, labs to approach WNL.
--- NOTE | 2017-08-17 21:03 | Progress Notes ---
DATE: 08/17/2017 SUBJECTIVE: The patient has no more hematuria and has been without daily bladder irrigations. He is now being considered for debridement of stage 4 decubitus on the sacral area. He is tolerating his diet as well. PHYSICAL EXAMINATION: VITAL SIGNS: Last temperature 100.7, which has been first time that he has had a fever, heart rate 96, blood pressure 110/61. ABDOMEN: Soft and nontender. GENITOURINARY: Bladder decompressed. [place] catheter, clear urine. EXTREMITIES: Contractures and no edema. LABORATORY DATA: White count improved to 10.5, hemoglobin slightly down to 8.3. Electrolytes: Potassium 3.0, creatinine improved further to 0.5. Cultures are positive. Both the blood and urine are showing proteus for which he is getting meropenem. IMPRESSION: Gross hematuria secondary to Salmer[place] trauma and false passage in the urethra, status post clot evacuation and placement of [place] catheter with which he is stabilizing. History of multiple sclerosis and functional quadriplegia, bedridden status, no change with contractures and decubitus. History of hepatitis B, currently stable. PLAN: Continue Sal[place] catheter without changing for at least 6 weeks. JOB# [id number]
[2017-08-18] MEDS: Meropenem 500 MG in Sodium Chloride 0.9% 100 ML IV SCH ×2 (03:37→15:28)
[2017-08-18] MEDS: D5-0.9%NS 1,000 ML IV SCH ×2 (03:39→17:35)
[2017-08-18 07:28] LABS: % BASOPHILS 1.5 % (0.0-2.0); % EOSINOPHILS 1.4 % (0.0-5.0); % LYMPHOCYTES 27.6 % (20.0-50.0); % MONOCYTES 11.3 % (2.0-10.0); % NEUTROPHILS 58.2 % (40.0-80.0); BASOPHILE ABSOLUTE 0.1 Th/cumm (0-0.2); EOSINOPHILE ABSOLUTE 0.1 Th/cmm (0.1-0.4); HEMATOCRIT 28.7 % (41.0-60); HEMOGLOBIN 9.5 gm/dL (12-16); LYMPHOCYTE ABSOLUTE 2.3 Th/cmm (1.5-3.0); MEAN CELL VOLUME 87.7 fl (80-99); MEAN CORPUSCULAR HEMOGLOBIN 28.9 pg (26.0-30.0); MEAN CORPUSCULAR HGB CONC 32.9 pg (28.0-36.0); MEAN PLATELET VOLUME 7.6 fl; MONOCYTE ABSOLUTE 0.9 Th/cmm (0.3-1.0); NEUTROPHILE ABSOLUTE 4.9 Th/cmm (1.8-8.0); PLATELET COUNT 469 Th/cmm (150-400); RED BLOOD COUNT 3.27 Mil/cmm (4.30-5.70); RED CELL DISTRIBUTION WIDTH 13.8 % (11.5-20.0); WHITE BLOOD COUNT 8.3 Th/cmm (4.8-10.8)
[2017-08-18 07:43] LABS: ANION GAP 6.7 (7.0-16.0); BUN - UREA NITROGEN 15 mg/dL (7-25); CALCIUM SERUM 8.7 mg/dL (8.6-10.3); CARBON DIOXIDE 24.5 mEq/L (21.0-31.0); CHLORIDE 113 mEq/L (98-107); CREATININE - SERUM 0.4 mg/dL (0.7-1.3); GFR AFRICAN-AMERICAN > 60.0 ml/min (>90); GFR NON AFRICAN-AMERICAN > 60.0 ml/min; GLUCOSE 100 mg/dL (70-105); POTASSIUM SERUM 3.2 mEq/L (3.5-5.1); SODIUM SERUM 141 mEq/L (136-145)
[2017-08-18] MEDS: Multivitamin w/ Minerals Tab PO SCH (09:50)
--- NOTE | 2017-08-18 14:24 | Internal Medicine Prog Note ---
Internal Medicine Subjective - Subjective Patient seen and examined:: with staff, chart reviewed Patient is:: asleep, interactive, eyes closed, confused Patient Complaints of:: pain with urination Per staff patient has:: noncompliant, confused Internal Medicine Objective - Results Result Diagrams: 08/18/17 06:22 08/18/17 06:22 Recent Labs: Laboratory Last Values WBC 8.3 Th/cmm (4.8-10.8) 08/18/17 06:22 RBC 3.27 Mil/cmm (4.30-5.70) L 08/18/17 06:22 Hgb 9.5 gm/dL (12-16) L 08/18/17 06:22 Hct 28.7 % (41.0-60) L 08/18/17 06:22 MCV 87.7 fl (80-99) 08/18/17 06:22 MCH 28.9 pg (26.0-30.0) 08/18/17 06:22 MCHC Differential 32.9 pg (28.0-36.0) 08/18/17 06:22 RDW 13.8 % (11.5-20.0) 08/18/17 06:22 Plt Count 469 Th/cmm (150-400) H 08/18/17 06:22 MPV 7.6 fl 08/18/17 06:22 Neutrophils % 58.2 % (40.0-80.0) 08/18/17 06:22 Band Neutrophils % 10 % (0-10) 08/15/17 05:45 Lymphocytes % 27.6 % (20.0-50.0) 08/18/17 06:22 Monocytes % 11.3 % (2.0-10.0) H 08/18/17 06:22 Eosinophils % 1.4 % (0.0-5.0) 08/18/17 06:22 Basophils % 1.5 % (0.0-2.0) 08/18/17 06:22 Neutrophils (Manual) 87 % (40-80) H 08/15/17 05:45 Lymphocytes 2 % (20-50) L 08/15/17 05:45 Monocytes 1 % (2-10) L 08/15/17 05:45 Basophils 1 % (0-3) 08/14/17 11:23 Platelet Estimate INCREASED PLATELETS (NORMAL) 08/15/17 05:45 PT 12.3 SECONDS (9.5-11.5) H 08/14/17 15:28 INR 1.17 (0.5-1.4) 08/14/17 15:28 PTT (Actin FS) 33.8 SECONDS (26.0-38.0) 08/14/17 15:28 Sodium 141 mEq/L (136-145) 08/18/17 06:22 Potassium 3.2 mEq/L (3.5-5.1) L 08/18/17 06:22 Chloride 113 mEq/L (98-107) H 08/18/17 06:22 Carbon Dioxide 24.5 mEq/L (21.0-31.0) 08/18/17 06:22 Anion Gap 6.7 (7.0-16.0) L 08/18/17 06:22 BUN 15 mg/dL (7-25) 08/18/17 06:22 Creatinine 0.4 mg/dL (0.7-1.3) L 08/18/17 06:22 Est GFR ( Amer) > 60.0 ml/min (>90) 08/18/17 06:22 Est GFR (Non-Af Amer) > 60.0 ml/min 08/18/17 06:22 BUN/Creatinine Ratio 37.5 08/18/17 06:22 Glucose 100 mg/dL (70-105) 08/18/17 06:22 POC Glucose 143 MG/DL (70 - 105) H 08/14/17 17:42 Whole Bld Lactic Acid 1.56 mmol/L (0.60-1.99) 08/14/17 11:23 Calcium 8.7 mg/dL (8.6-10.3) 08/18/17 06:22 Total Bilirubin 0.4 mg/dL (0.3-1.0) 08/16/17 05:35 AST 48 U/L (13-39) H 08/16/17 05:35 ALT 30 U/L (7-52) 08/16/17 05:35 Alkaline Phosphatase 87 U/L (34-104) 08/16/17 05:35 B-Natriuretic Peptide 26.4 pg/mL (5.0-100.0) 08/17/17 05:50 Total Protein 6.4 gm/dL (6.0-8.3) 08/16/17 05:35 Albumin 2.3 gm/dL (4.2-5.5) L 08/16/17 05:35 Globulin 4.1 gm/dL 08/16/17 05:35 Albumin/Globulin Ratio 0.6 (1.0-1.8) L 08/16/17 05:35 Urine Source RANDOM 08/14/17 12:30 Urine Color RED 08/14/17 12:30 Urine Clarity BLOODY (CLEAR) 08/14/17 12:30 Urine pH 8.0 (4.6 - 8.0) 08/14/17 12:30 Ur Specific [place] 1.020 (1.005-1.030) 08/14/17 12:30 Urine Protein >=300 mg/dL (NEGATIVE) 08/14/17 12:30 Urine Glucose (UA) 100 mg/dL (NEGATIVE) H 08/14/17 12:30 Urine Ketones NEGATIVE mg/dL (NEGATIVE) 08/14/17 12:30 Urine Blood LARGE (NEGATIVE) H 08/14/17 12:30 Urine Nitrate POSITIVE (NEGATIVE) H 08/14/17 12:30 Urine Bilirubin SMALL (NEGATIVE) H 08/14/17 12:30 Urine Urobilinogen 1.0 E.U./dL (0.2 - 1.0) 08/14/17 12:30 Ur Leukocyte Esterase TRACE (NEGATIVE) H 08/14/17 12:30 Urine RBC >100 /hpf (0-5) H 08/14/17 12:30 Urine WBC /hpf (0-5) 08/14/17 12:30 Ur Epithelial Cells /lpf (FEW) 08/14/17 12:30 Urine Bacteria /hpf (NONE SEEN) 08/14/17 12:30 - Physical Exam Vitals and I&O: Vital Signs Temp 97.9 F 08/18/17 11:52 Pulse 78 08/18/17 11:52 Resp 17 08/18/17 11:52 BP 114/75 08/18/17 11:52 Pulse Ox 100 08/18/17 11:52 Intake & Output 08/17/17 08/18/17 08/18/17 18:59 06:59 18:59 Intake Total 1000 200 Output Total 400 Balance 1000 -200 Weight (lbs) 71.214 kg 72.121 kg 72.121 kg Intake: Intake, IV Amount 1000 200 D5-0.9%Ns 1,000 ml @ 80 1000 mls/hr IV .[id number] [facility] Rx #:[id number] Meropenem 500 mg In 200 Sodium Chloride 0.9% 100 ml @ 100 mls/hr IV Q12H [facility] Rx#:[id number] Output: Urine 400 Active Medications: Current Medications Acetaminophen (Tylenol) 650 mg PO Q4HR PRN PRN Reason: Pain (Mild) Stop: 10/13/17 14:46 Last Admin: 08/17/17 20:45 Dose: 650 mg Albuterol Sulfate (Albuterol 2.5mg/3ml Neb Ud) 2.5 mg HHN Q2HRT PRN PRN Reason: Shortness of Breath or Wheeze Stop: 10/13/17 14:49 Baclofen (Lioresal) 5 mg PO TID [facility] Stop: 10/13/17 20:59 Last Admin: 08/18/17 09:51 Dose: 5 mg [place] Oil/[place] Balsam/Trypsin (Venelex) 1 appl TP DAILY [facility] Stop: 10/17/17 13:59 Dextrose/Sodium Chloride (D5-0.9%Ns) 1,000 mls @ 80 mls/hr IV .[id number] [facility] Stop: 10/13/17 14:59 Last Admin: 08/18/17 03:39 Dose: 80 mls/hr Meropenem 500 mg/ Sodium (Chloride) 100 mls @ 100 mls/hr IV Q12H [facility] Stop: 10/14/17 15:40 Last Infusion: 08/18/17 04:37 Dose: Infused Ipratropium [place] (Atrovent Neb 0.5mg/2.5ml) 0.5 mg IH Q2HRT PRN PRN Reason: Shortness of Breath or Wheeze Stop: 10/13/17 14:49 Midodrine (Proamatine) 10 mg PO TID [facility] Stop: 10/16/17 13:59 Last Admin: 08/18/17 09:52 Dose: 10 mg Morphine Sulfate (Morphine) 1 mg IVP Q4H PRN PRN Reason: Pain (Severe) Stop: 10/13/17 14:49 Ondansetron HCl (Zofran) 4 mg IV Q8H PRN PRN Reason: Nausea / Vomiting Stop: 10/13/17 14:49 Zinc Sulfate (Zinc Sulfate) 220 mg PO DAILY AJIT Stop: 10/14/17 08:59 Last Admin: 08/18/17 09:51 Dose: 220 mg General: demented HEENT: NC/AT, PERRLA, thinning hair, poor dentition Neck: Supple, deformity Lungs: CTAB Cardiovascular: RRR, Normal S1, Normal S2, without murmur Abdomen: soft, non-tender, globular, non-distended Extremities: excoriation, ecchymosis, contracture Neurological: no change - Procedures Procedures: Procedures Procedure Code Date CYSTOSCOPY & URETER CATHETER 80890 08/14/17 EXTIRPATION OF MATTER FROM BLADDER, ENDO [id number] 08/14/17 INSERTION OF OTHER DEVICE INTO BLADDER, ENDO [id number] 08/14/17 Internal Medicine Assmt/Plan - Assessment Assessment: ASSESSMENT AND PLAN: 1. Sepsis.bacteremia hematuria 2. Leukocytosis. 3. UTI. 4. Decubitus ulcer. 5. Multiple sclerosis. 6. Schizoaffective disorder. 7. Moderate protein-calorie malnutrition. - Plan Plan: will add gram neg coverage We will continue with IV hydration, IV antibiotic. We will irrigate the bladder. Urology has been consulted. Continue with current care. Follow consult recs Nutritional Asmnt/Malnutr-PDOC - Dietary Evaluation Malnutrition Findings (Please click <Entered> for more info): Nutritional Asmnt/Malnutrition Start: 08/16/17 18: 05 Text: Status: Complete Freq: Document 08/16/17 18:05 LCHENG (Rec: 08/16/17 18:17 LCHENG [id number]) Nutritional Asmnt/Malnutrition Patient General Information Nutritional Screening High Risk Diagnosis hematuria, sepsis Pertinent Medical Hx/Surgical Hx multiple sclerosis, decubitus ulceration, malnutrition Subjective Information Pt is non verbal noted. Spoke with nurse, nurse reported pt eats well, consumed 80% of breakfast and lunch today. Per MD note, pt hadcystoscopy on 08/15. Current Diet Order/ Nutrition Support pureed Pertinent Medications D5-0.9%nx, zinc Pertinent Labs 08/16 Na 141, K 3.6, Cl 114, BUN 27, Glucose 114 08/14 GLucose 145, POC 143 Nutritional Hx/Data Height 1.65 m Height (Calculated Centimeters) 165.1 Current Weight (lbs) 71.214 kg Weight (Calculated Kilograms) 71.2 Weight (Calculated Grams) 38248.0 [place] Body Weight 136 Body Mass Index (BMI) 26.1 Weight Status Overweight GI Symptoms GI Symptoms None Last BM 1 Difficult in: None Skin Integrity/Comment: decubitus ulceration to cyccyx Current %PO Good (75-100%) Estimated Nutritional Goals BEE in Kcals: Using Current wt Calories/Kcals/Kg 25-30 Kcals Calculated 5430-4366 Protein: Using Current wt Protein g/k-1.2 Protein Calculated 71-85 Fluid: ml 1775-2130ml (1ml/kcal) Nutritional Problem 1. Problem Problem increased nutrition needs ( protein0 Etiology increased metabolic demand for wound healing Signs/Symptoms: decubitus ulceration Intervention/Recommendation Comments 1. Continue with current diet as ordered. Recommend vitamin C to help with wound healing 2. Monitor PO intake, wt, labs and skin integrity 3. F/U as moderate risk in 3-5 days, 08/19-08/21 Expected Outcomes/Goals Expected Outcomes/Goals 1. PO intake to meet at least 75% of nutritional needs. 2. Wt stability, skin to remain intact, labs to approach WNL.
[2017-08-18] MEDS ORDERED: Potassium Chloride 20 mEq ER Tab PO ONE (14:26)
[2017-08-18] MEDS: Venelex 60gm Tube TP SCH (17:32)
--- NOTE | 2017-08-18 18:22 | General Progress Note ---
Subjective - Review of Systems Service Date: 08/18/17 Events since last encounter: chart reviewed has stage 4 sacral decubitus ulder which will need debridement and wound vac Objective - Results Result Diagrams: 08/18/17 06:22 08/18/17 06:22 Recent Labs: Laboratory Last Values WBC 8.3 Th/cmm (4.8-10.8) 08/18/17 06:22 RBC 3.27 Mil/cmm (4.30-5.70) L 08/18/17 06:22 Hgb 9.5 gm/dL (12-16) L 08/18/17 06:22 Hct 28.7 % (41.0-60) L 08/18/17 06:22 MCV 87.7 fl (80-99) 08/18/17 06:22 MCH 28.9 pg (26.0-30.0) 08/18/17 06:22 MCHC Differential 32.9 pg (28.0-36.0) 08/18/17 06:22 RDW 13.8 % (11.5-20.0) 08/18/17 06:22 Plt Count 469 Th/cmm (150-400) H 08/18/17 06:22 MPV 7.6 fl 08/18/17 06:22 Neutrophils % 58.2 % (40.0-80.0) 08/18/17 06:22 Band Neutrophils % 10 % (0-10) 08/15/17 05:45 Lymphocytes % 27.6 % (20.0-50.0) 08/18/17 06:22 Monocytes % 11.3 % (2.0-10.0) H 08/18/17 06:22 Eosinophils % 1.4 % (0.0-5.0) 08/18/17 06:22 Basophils % 1.5 % (0.0-2.0) 08/18/17 06:22 Neutrophils (Manual) 87 % (40-80) H 08/15/17 05:45 Lymphocytes 2 % (20-50) L 08/15/17 05:45 Monocytes 1 % (2-10) L 08/15/17 05:45 Basophils 1 % (0-3) 08/14/17 11:23 Platelet Estimate INCREASED PLATELETS (NORMAL) 08/15/17 05:45 PT 12.3 SECONDS (9.5-11.5) H 08/14/17 15:28 INR 1.17 (0.5-1.4) 08/14/17 15:28 PTT (Actin FS) 33.8 SECONDS (26.0-38.0) 08/14/17 15:28 Sodium 141 mEq/L (136-145) 08/18/17 06:22 Potassium 3.2 mEq/L (3.5-5.1) L 08/18/17 06:22 Chloride 113 mEq/L (98-107) H 08/18/17 06:22 Carbon Dioxide 24.5 mEq/L (21.0-31.0) 08/18/17 06:22 Anion Gap 6.7 (7.0-16.0) L 08/18/17 06:22 BUN 15 mg/dL (7-25) 08/18/17 06:22 Creatinine 0.4 mg/dL (0.7-1.3) L 08/18/17 06:22 Est GFR ( Amer) > 60.0 ml/min (>90) 08/18/17 06:22 Est GFR (Non-Af Amer) > 60.0 ml/min 08/18/17 06:22 BUN/Creatinine Ratio 37.5 08/18/17 06:22 Glucose 100 mg/dL (70-105) 08/18/17 06:22 POC Glucose 143 MG/DL (70 - 105) H 08/14/17 17:42 Whole Bld Lactic Acid 1.56 mmol/L (0.60-1.99) 08/14/17 11:23 Calcium 8.7 mg/dL (8.6-10.3) 08/18/17 06:22 Total Bilirubin 0.4 mg/dL (0.3-1.0) 08/16/17 05:35 AST 48 U/L (13-39) H 08/16/17 05:35 ALT 30 U/L (7-52) 08/16/17 05:35 Alkaline Phosphatase 87 U/L (34-104) 08/16/17 05:35 B-Natriuretic Peptide 26.4 pg/mL (5.0-100.0) 08/17/17 05:50 Total Protein 6.4 gm/dL (6.0-8.3) 08/16/17 05:35 Albumin 2.3 gm/dL (4.2-5.5) L 08/16/17 05:35 Globulin 4.1 gm/dL 08/16/17 05:35 Albumin/Globulin Ratio 0.6 (1.0-1.8) L 08/16/17 05:35 Urine Source RANDOM 08/14/17 12:30 Urine Color RED 08/14/17 12:30 Urine Clarity BLOODY (CLEAR) 08/14/17 12:30 Urine pH 8.0 (4.6 - 8.0) 08/14/17 12:30 Ur Specific [place] 1.020 (1.005-1.030) 08/14/17 12:30 Urine Protein >=300 mg/dL (NEGATIVE) 08/14/17 12:30 Urine Glucose (UA) 100 mg/dL (NEGATIVE) H 08/14/17 12:30 Urine Ketones NEGATIVE mg/dL (NEGATIVE) 08/14/17 12:30 Urine Blood LARGE (NEGATIVE) H 08/14/17 12:30 Urine Nitrate POSITIVE (NEGATIVE) H 08/14/17 12:30 Urine Bilirubin SMALL (NEGATIVE) H 08/14/17 12:30 Urine Urobilinogen 1.0 E.U./dL (0.2 - 1.0) 08/14/17 12:30 Ur Leukocyte Esterase TRACE (NEGATIVE) H 08/14/17 12:30 Urine RBC >100 /hpf (0-5) H 08/14/17 12:30 Urine WBC /hpf (0-5) 08/14/17 12:30 Ur Epithelial Cells /lpf (FEW) 08/14/17 12:30 Urine Bacteria /hpf (NONE SEEN) 08/14/17 12:30 - Physical Exam Vitals and I&O: Vital Signs Temp 96.7 F 08/18/17 16:00 Pulse 84 08/18/17 16:00 Resp 17 08/18/17 16:00 BP 120/80 08/18/17 16:00 Pulse Ox 99 08/18/17 16:00 Intake & Output 08/17/17 08/18/17 08/18/17 18:59 06:59 18:59 Intake Total 9675 085 3747 Output Total 400 Balance 1000 -200 1000 Weight (lbs) 71.214 kg 72.121 kg 72.121 kg Intake: Intake, IV Amount 3337 783 3145 D5-0.9%Ns 1,000 ml @ 80 1000 1000 mls/hr IV .[id number] [facility] Rx #:[id number] Meropenem 500 mg In 200 Sodium Chloride 0.9% 100 ml @ 100 mls/hr IV Q12H [facility] Rx#:[id number] Output: Urine 400 Active Medications: Current Medications Acetaminophen (Tylenol) 650 mg PO Q4HR PRN PRN Reason: Pain (Mild) Stop: 10/13/17 14:46 Last Admin: 08/17/17 20:45 Dose: 650 mg Albuterol Sulfate (Albuterol 2.5mg/3ml Neb Ud) 2.5 mg HHN Q2HRT PRN PRN Reason: Shortness of Breath or Wheeze Stop: 10/13/17 14:49 Baclofen (Lioresal) 5 mg PO TID [facility] Stop: 10/13/17 20:59 Last Admin: 08/18/17 15:24 Dose: 5 mg [place] Oil/[place] Balsam/Trypsin (Venelex) 1 appl TP DAILY [facility] Stop: 10/17/17 13:59 Last Admin: 08/18/17 17:32 Dose: 1 appl Dextrose/Sodium Chloride (D5-0.9%Ns) 1,000 mls @ 80 mls/hr IV .[id number] [facility] Stop: 10/13/17 14:59 Last Admin: 08/18/17 17:35 Dose: 80 mls/hr Meropenem 500 mg/ Sodium (Chloride) 100 mls @ 100 mls/hr IV Q12H [facility] Stop: 10/14/17 15:40 Last Admin: 08/18/17 15:28 Dose: 100 mls/hr Ipratropium [place] (Atrovent Neb 0.5mg/2.5ml) 0.5 mg IH Q2HRT PRN PRN Reason: Shortness of Breath or Wheeze Stop: 10/13/17 14:49 Midodrine (Proamatine) 10 mg PO TID [facility] Stop: 10/16/17 13:59 Last Admin: 08/18/17 15:25 Dose: 10 mg Morphine Sulfate (Morphine) 1 mg IVP Q4H PRN PRN Reason: Pain (Severe) Stop: 10/13/17 14:49 Ondansetron HCl (Zofran) 4 mg IV Q8H PRN PRN Reason: Nausea / Vomiting Stop: 10/13/17 14:49 Zinc Sulfate (Zinc Sulfate) 220 mg PO DAILY AJIT Stop: 10/14/17 08:59 Last Admin: 08/18/17 09:51 Dose: 220 mg - Procedures Procedures: Procedures Procedure Code Date CYSTOSCOPY & URETER CATHETER 31767 08/14/17 EXTIRPATION OF MATTER FROM BLADDER, ENDO [id number] 08/14/17 INSERTION OF OTHER DEVICE INTO BLADDER, ENDO [id number] 08/14/17 Nutritional Asmnt/Malnutr-PDOC - Dietary Evaluation Malnutrition Findings (Please click <Entered> for more info): Nutritional Asmnt/Malnutrition Start: 08/16/17 18: 05 Text: Status: Complete Freq: Document 08/16/17 18:05 [facility] (Rec: 08/16/17 18:17 HEN [id number]) Nutritional Asmnt/Malnutrition Patient General Information Nutritional Screening High Risk Diagnosis hematuria, sepsis Pertinent Medical Hx/Surgical Hx multiple sclerosis, decubitus ulceration, malnutrition Subjective Information Pt is non verbal noted. Spoke with nurse, nurse reported pt eats well, consumed 80% of breakfast and lunch today. Per MD note, pt hadcystoscopy on 08/15. Current Diet Order/ Nutrition Support pureed Pertinent Medications D5-0.9%nx, zinc Pertinent Labs 08/16 Na 141, K 3.6, Cl 114, BUN 27, Glucose 114 08/14 GLucose 145, POC 143 Nutritional Hx/Data Height 1.65 m Height (Calculated Centimeters) 165.1 Current Weight (lbs) 71.214 kg Weight (Calculated Kilograms) 71.2 Weight (Calculated Grams) 38660.0 [place] Body Weight 136 Body Mass Index (BMI) 26.1 Weight Status Overweight GI Symptoms GI Symptoms None Last BM 1 Difficult in: None Skin Integrity/Comment: decubitus ulceration to cyccyx Current %PO Good (75-100%) Estimated Nutritional Goals BEE in Kcals: Using Current wt Calories/Kcals/Kg 25-30 Kcals Calculated 7765-9909 Protein: Using Current wt Protein g/k-1.2 Protein Calculated 71-85 Fluid: ml 1775-2130ml (1ml/kcal) Nutritional Problem 1. Problem Problem increased nutrition needs ( protein0 Etiology increased metabolic demand for wound healing Signs/Symptoms: decubitus ulceration Intervention/Recommendation Comments 1. Continue with current diet as ordered. Recommend vitamin C to help with wound healing 2. Monitor PO intake, wt, labs and skin integrity 3. F/U as moderate risk in 3-5 days, 08/19-08/21 Expected Outcomes/Goals Expected Outcomes/Goals 1. PO intake to meet at least 75% of nutritional needs. 2. Wt stability, skin to remain intact, labs to approach WNL.
--- NOTE | 2017-08-18 18:28 | General Progress Note ---
Subjective - Review of Systems Service Date: 08/18/17 Events since last encounter: message left with mother regarding consent for surgery: diverting colostomy, debrdiement and wound vac Objective - Results Result Diagrams: 08/18/17 06:22 08/18/17 06:22 Recent Labs: Laboratory Last Values WBC 8.3 Th/cmm (4.8-10.8) 08/18/17 06:22 RBC 3.27 Mil/cmm (4.30-5.70) L 08/18/17 06:22 Hgb 9.5 gm/dL (12-16) L 08/18/17 06:22 Hct 28.7 % (41.0-60) L 08/18/17 06:22 MCV 87.7 fl (80-99) 08/18/17 06:22 MCH 28.9 pg (26.0-30.0) 08/18/17 06:22 MCHC Differential 32.9 pg (28.0-36.0) 08/18/17 06:22 RDW 13.8 % (11.5-20.0) 08/18/17 06:22 Plt Count 469 Th/cmm (150-400) H 08/18/17 06:22 MPV 7.6 fl 08/18/17 06:22 Neutrophils % 58.2 % (40.0-80.0) 08/18/17 06:22 Band Neutrophils % 10 % (0-10) 08/15/17 05:45 Lymphocytes % 27.6 % (20.0-50.0) 08/18/17 06:22 Monocytes % 11.3 % (2.0-10.0) H 08/18/17 06:22 Eosinophils % 1.4 % (0.0-5.0) 08/18/17 06:22 Basophils % 1.5 % (0.0-2.0) 08/18/17 06:22 Neutrophils (Manual) 87 % (40-80) H 08/15/17 05:45 Lymphocytes 2 % (20-50) L 08/15/17 05:45 Monocytes 1 % (2-10) L 08/15/17 05:45 Basophils 1 % (0-3) 08/14/17 11:23 Platelet Estimate INCREASED PLATELETS (NORMAL) 08/15/17 05:45 PT 12.3 SECONDS (9.5-11.5) H 08/14/17 15:28 INR 1.17 (0.5-1.4) 08/14/17 15:28 PTT (Actin FS) 33.8 SECONDS (26.0-38.0) 08/14/17 15:28 Sodium 141 mEq/L (136-145) 08/18/17 06:22 Potassium 3.2 mEq/L (3.5-5.1) L 08/18/17 06:22 Chloride 113 mEq/L (98-107) H 08/18/17 06:22 Carbon Dioxide 24.5 mEq/L (21.0-31.0) 08/18/17 06:22 Anion Gap 6.7 (7.0-16.0) L 08/18/17 06:22 BUN 15 mg/dL (7-25) 08/18/17 06:22 Creatinine 0.4 mg/dL (0.7-1.3) L 08/18/17 06:22 Est GFR ( Amer) > 60.0 ml/min (>90) 08/18/17 06:22 Est GFR (Non-Af Amer) > 60.0 ml/min 08/18/17 06:22 BUN/Creatinine Ratio 37.5 08/18/17 06:22 Glucose 100 mg/dL (70-105) 08/18/17 06:22 POC Glucose 143 MG/DL (70 - 105) H 08/14/17 17:42 Whole Bld Lactic Acid 1.56 mmol/L (0.60-1.99) 08/14/17 11:23 Calcium 8.7 mg/dL (8.6-10.3) 08/18/17 06:22 Total Bilirubin 0.4 mg/dL (0.3-1.0) 08/16/17 05:35 AST 48 U/L (13-39) H 08/16/17 05:35 ALT 30 U/L (7-52) 08/16/17 05:35 Alkaline Phosphatase 87 U/L (34-104) 08/16/17 05:35 B-Natriuretic Peptide 26.4 pg/mL (5.0-100.0) 08/17/17 05:50 Total Protein 6.4 gm/dL (6.0-8.3) 08/16/17 05:35 Albumin 2.3 gm/dL (4.2-5.5) L 08/16/17 05:35 Globulin 4.1 gm/dL 08/16/17 05:35 Albumin/Globulin Ratio 0.6 (1.0-1.8) L 08/16/17 05:35 Urine Source RANDOM 08/14/17 12:30 Urine Color RED 08/14/17 12:30 Urine Clarity BLOODY (CLEAR) 08/14/17 12:30 Urine pH 8.0 (4.6 - 8.0) 08/14/17 12:30 Ur Specific [place] 1.020 (1.005-1.030) 08/14/17 12:30 Urine Protein >=300 mg/dL (NEGATIVE) 08/14/17 12:30 Urine Glucose (UA) 100 mg/dL (NEGATIVE) H 08/14/17 12:30 Urine Ketones NEGATIVE mg/dL (NEGATIVE) 08/14/17 12:30 Urine Blood LARGE (NEGATIVE) H 08/14/17 12:30 Urine Nitrate POSITIVE (NEGATIVE) H 08/14/17 12:30 Urine Bilirubin SMALL (NEGATIVE) H 08/14/17 12:30 Urine Urobilinogen 1.0 E.U./dL (0.2 - 1.0) 08/14/17 12:30 Ur Leukocyte Esterase TRACE (NEGATIVE) H 08/14/17 12:30 Urine RBC >100 /hpf (0-5) H 08/14/17 12:30 Urine WBC /hpf (0-5) 08/14/17 12:30 Ur Epithelial Cells /lpf (FEW) 08/14/17 12:30 Urine Bacteria /hpf (NONE SEEN) 08/14/17 12:30 - Physical Exam Vitals and I&O: Vital Signs Temp 96.7 F 08/18/17 16:00 Pulse 84 08/18/17 16:00 Resp 17 08/18/17 16:00 BP 120/80 08/18/17 16:00 Pulse Ox 99 08/18/17 16:00 Intake & Output 08/17/17 08/18/17 08/18/17 18:59 06:59 18:59 Intake Total 1655 126 2705 Output Total 400 Balance 1000 -200 1000 Weight (lbs) 71.214 kg 72.121 kg 72.121 kg Intake: Intake, IV Amount 8535 089 3322 D5-0.9%Ns 1,000 ml @ 80 1000 1000 mls/hr IV .[id number] [facility] Rx #:[id number] Meropenem 500 mg In 200 Sodium Chloride 0.9% 100 ml @ 100 mls/hr IV Q12H [facility] Rx#:[id number] Output: Urine 400 Active Medications: Current Medications Acetaminophen (Tylenol) 650 mg PO Q4HR PRN PRN Reason: Pain (Mild) Stop: 10/13/17 14:46 Last Admin: 08/17/17 20:45 Dose: 650 mg Albuterol Sulfate (Albuterol 2.5mg/3ml Neb Ud) 2.5 mg HHN Q2HRT PRN PRN Reason: Shortness of Breath or Wheeze Stop: 10/13/17 14:49 Baclofen (Lioresal) 5 mg PO TID [facility] Stop: 10/13/17 20:59 Last Admin: 08/18/17 15:24 Dose: 5 mg [place] Oil/[place] Balsam/Trypsin (Venelex) 1 appl TP DAILY [facility] Stop: 10/17/17 13:59 Last Admin: 08/18/17 17:32 Dose: 1 appl Dextrose/Sodium Chloride (D5-0.9%Ns) 1,000 mls @ 80 mls/hr IV .[id number] [facility] Stop: 10/13/17 14:59 Last Admin: 08/18/17 17:35 Dose: 80 mls/hr Meropenem 500 mg/ Sodium (Chloride) 100 mls @ 100 mls/hr IV Q12H [facility] Stop: 10/14/17 15:40 Last Admin: 08/18/17 15:28 Dose: 100 mls/hr Ipratropium [place] (Atrovent Neb 0.5mg/2.5ml) 0.5 mg IH Q2HRT PRN PRN Reason: Shortness of Breath or Wheeze Stop: 10/13/17 14:49 Midodrine (Proamatine) 10 mg PO TID [facility] Stop: 10/16/17 13:59 Last Admin: 08/18/17 15:25 Dose: 10 mg Morphine Sulfate (Morphine) 1 mg IVP Q4H PRN PRN Reason: Pain (Severe) Stop: 10/13/17 14:49 Ondansetron HCl (Zofran) 4 mg IV Q8H PRN PRN Reason: Nausea / Vomiting Stop: 10/13/17 14:49 Zinc Sulfate (Zinc Sulfate) 220 mg PO DAILY AJIT Stop: 10/14/17 08:59 Last Admin: 08/18/17 09:51 Dose: 220 mg - Procedures Procedures: Procedures Procedure Code Date CYSTOSCOPY & URETER CATHETER 72686 08/14/17 EXTIRPATION OF MATTER FROM BLADDER, ENDO [id number] 08/14/17 INSERTION OF OTHER DEVICE INTO BLADDER, ENDO [id number] 08/14/17 Nutritional Asmnt/Malnutr-PDOC - Dietary Evaluation Malnutrition Findings (Please click <Entered> for more info): Nutritional Asmnt/Malnutrition Start: 08/16/17 18: 05 Text: Status: Complete Freq: Document 08/16/17 18:05 ALONDRA (Rec: 08/16/17 18:17 ALONDRA [id number]) Nutritional Asmnt/Malnutrition Patient General Information Nutritional Screening High Risk Diagnosis hematuria, sepsis Pertinent Medical Hx/Surgical Hx multiple sclerosis, decubitus ulceration, malnutrition Subjective Information Pt is non verbal noted. Spoke with nurse, nurse reported pt eats well, consumed 80% of breakfast and lunch today. Per MD note, pt hadcystoscopy on 08/15. Current Diet Order/ Nutrition Support pureed Pertinent Medications D5-0.9%nx, zinc Pertinent Labs 08/16 Na 141, K 3.6, Cl 114, BUN 27, Glucose 114 08/14 GLucose 145, POC 143 Nutritional Hx/Data Height 1.65 m Height (Calculated Centimeters) 165.1 Current Weight (lbs) 71.214 kg Weight (Calculated Kilograms) 71.2 Weight (Calculated Grams) 37801.0 [place] Body Weight 136 Body Mass Index (BMI) 26.1 Weight Status Overweight GI Symptoms GI Symptoms None Last BM 1 Difficult in: None Skin Integrity/Comment: decubitus ulceration to cyccyx Current %PO Good (75-100%) Estimated Nutritional Goals BEE in Kcals: Using Current wt Calories/Kcals/Kg 25-30 Kcals Calculated 4420-4288 Protein: Using Current wt Protein g/k-1.2 Protein Calculated 71-85 Fluid: ml 1775-2130ml (1ml/kcal) Nutritional Problem 1. Problem Problem increased nutrition needs ( protein0 Etiology increased metabolic demand for wound healing Signs/Symptoms: decubitus ulceration Intervention/Recommendation Comments 1. Continue with current diet as ordered. Recommend vitamin C to help with wound healing 2. Monitor PO intake, wt, labs and skin integrity 3. F/U as moderate risk in 3-5 days, 08/19-08/21 Expected Outcomes/Goals Expected Outcomes/Goals 1. PO intake to meet at least 75% of nutritional needs. 2. Wt stability, skin to remain intact, labs to approach WNL.
--- NOTE | 2017-08-18 22:57 | Progress Notes ---
DATE: 08/18/2017 UROLOGY FOLLOWUP SUBJECTIVE: The patient looks much better. He is awake. He does respond to some pain. Salmeron catheter is draining clear urine without irrigation and with no blood. On exam, he is afebrile with vital signs stable. He is tolerating his diet. OBJECIVE: ABDOMEN: Soft, nondistended, and nontender. EXTREMITIES: No edema, but remains very contracted. There is no evidence of any collection in the suprapubic or perineal area from the false passage in the urethra. IMPRESSION: Gross hematuria from Salmeron trauma and false passage in the bulbous urethra, status post cystoscopy and placement of Salmeron, which is functioning well. The patient should have the Salmeron for 6 weeks and have it changed by the urologist to avoid further injury to the urethra. History of multiple sclerosis and quadriplegia with severe contractures. No significant change. History of hepatitis in the past with stable liver functions. [facility]# [id number]
[2017-08-19] MEDS: Meropenem 500 MG in Sodium Chloride 0.9% 100 ML IV SCH (04:23)
--- NOTE | 2017-08-19 10:00 | Consultation ---
DATE OF CONSULTATION: 08/18/2017 SURGICAL CONSULT REFERRING PHYSICIAN: Dr. Alberts. REASON FOR CONSULTATION: Decubitus ulcer. Thank you for referring this patient to me. HISTORY OF PRESENT ILLNESS: This is a 57-year-old male who resides in a half-way, admitted because of UTI and bleeding in the urine. The patient has multiple sclerosis, schizoaffective disorder and essentially bedridden status. He is blind. He does not communicate verbally. The patient has been seen by urologist. His laboratory studies show CBC to be essentially normal with rather low hemoglobin at 9.5, platelet count is 469. Chemistry is also essentially normal. The patient has a large sacral decubitus ulcer stage 4. He is incontinent and not able to notify nursing personnel for his personal needs. The mother was called over the phone as well as the brother and informed consent was discussed regarding the best remedy for his situation. I am recommending a diverting colostomy and excisional debridement of the sacral decubitus ulcer and application of wound VAC. Complications were discussed. The mother is a Mosque and does not want any kind of blood transfusion. JOB# [id number]
[2017-08-19] MEDS ORDERED: Propofol **SURGERY USE ONLY** 20 ML IV ONE (10:54)
--- NOTE | 2017-08-19 12:20 | Internal Medicine Prog Note ---
Internal Medicine Subjective - Subjective Service Date: 08/19/17 (currently in OR ) Patient is:: asleep, interactive, eyes closed Per staff patient has:: noncompliant, confused Internal Medicine Objective - Results Result Diagrams: 08/18/17 06:22 08/18/17 06:22 Recent Labs: Laboratory Last Values WBC 8.3 Th/cmm (4.8-10.8) 08/18/17 06:22 RBC 3.27 Mil/cmm (4.30-5.70) L 08/18/17 06:22 Hgb 9.5 gm/dL (12-16) L 08/18/17 06:22 Hct 28.7 % (41.0-60) L 08/18/17 06:22 MCV 87.7 fl (80-99) 08/18/17 06:22 MCH 28.9 pg (26.0-30.0) 08/18/17 06:22 MCHC Differential 32.9 pg (28.0-36.0) 08/18/17 06:22 RDW 13.8 % (11.5-20.0) 08/18/17 06:22 Plt Count 469 Th/cmm (150-400) H 08/18/17 06:22 MPV 7.6 fl 08/18/17 06:22 Neutrophils % 58.2 % (40.0-80.0) 08/18/17 06:22 Band Neutrophils % 10 % (0-10) 08/15/17 05:45 Lymphocytes % 27.6 % (20.0-50.0) 08/18/17 06:22 Monocytes % 11.3 % (2.0-10.0) H 08/18/17 06:22 Eosinophils % 1.4 % (0.0-5.0) 08/18/17 06:22 Basophils % 1.5 % (0.0-2.0) 08/18/17 06:22 Neutrophils (Manual) 87 % (40-80) H 08/15/17 05:45 Lymphocytes 2 % (20-50) L 08/15/17 05:45 Monocytes 1 % (2-10) L 08/15/17 05:45 Basophils 1 % (0-3) 08/14/17 11:23 Platelet Estimate INCREASED PLATELETS (NORMAL) 08/15/17 05:45 PT 12.3 SECONDS (9.5-11.5) H 08/14/17 15:28 INR 1.17 (0.5-1.4) 08/14/17 15:28 PTT (Actin FS) 33.8 SECONDS (26.0-38.0) 08/14/17 15:28 Sodium 141 mEq/L (136-145) 08/18/17 06:22 Potassium 3.2 mEq/L (3.5-5.1) L 08/18/17 06:22 Chloride 113 mEq/L (98-107) H 08/18/17 06:22 Carbon Dioxide 24.5 mEq/L (21.0-31.0) 08/18/17 06:22 Anion Gap 6.7 (7.0-16.0) L 08/18/17 06:22 BUN 15 mg/dL (7-25) 08/18/17 06:22 Creatinine 0.4 mg/dL (0.7-1.3) L 08/18/17 06:22 Est GFR ( Amer) > 60.0 ml/min (>90) 08/18/17 06:22 Est GFR (Non-Af Amer) > 60.0 ml/min 08/18/17 06:22 BUN/Creatinine Ratio 37.5 08/18/17 06:22 Glucose 100 mg/dL (70-105) 08/18/17 06:22 POC Glucose 100 MG/DL (70 - 105) 08/19/17 05:12 Whole Bld Lactic Acid 1.56 mmol/L (0.60-1.99) 08/14/17 11:23 Calcium 8.7 mg/dL (8.6-10.3) 08/18/17 06:22 Total Bilirubin 0.4 mg/dL (0.3-1.0) 08/16/17 05:35 AST 48 U/L (13-39) H 08/16/17 05:35 ALT 30 U/L (7-52) 08/16/17 05:35 Alkaline Phosphatase 87 U/L (34-104) 08/16/17 05:35 B-Natriuretic Peptide 26.4 pg/mL (5.0-100.0) 08/17/17 05:50 Total Protein 6.4 gm/dL (6.0-8.3) 08/16/17 05:35 Albumin 2.3 gm/dL (4.2-5.5) L 08/16/17 05:35 Globulin 4.1 gm/dL 08/16/17 05:35 Albumin/Globulin Ratio 0.6 (1.0-1.8) L 08/16/17 05:35 Urine Source RANDOM 08/14/17 12:30 Urine Color RED 08/14/17 12:30 Urine Clarity BLOODY (CLEAR) 08/14/17 12:30 Urine pH 8.0 (4.6 - 8.0) 08/14/17 12:30 Ur Specific [place] 1.020 (1.005-1.030) 08/14/17 12:30 Urine Protein >=300 mg/dL (NEGATIVE) 08/14/17 12:30 Urine Glucose (UA) 100 mg/dL (NEGATIVE) H 08/14/17 12:30 Urine Ketones NEGATIVE mg/dL (NEGATIVE) 08/14/17 12:30 Urine Blood LARGE (NEGATIVE) H 08/14/17 12:30 Urine Nitrate POSITIVE (NEGATIVE) H 08/14/17 12:30 Urine Bilirubin SMALL (NEGATIVE) H 08/14/17 12:30 Urine Urobilinogen 1.0 E.U./dL (0.2 - 1.0) 08/14/17 12:30 Ur Leukocyte Esterase TRACE (NEGATIVE) H 08/14/17 12:30 Urine RBC >100 /hpf (0-5) H 08/14/17 12:30 Urine WBC /hpf (0-5) 08/14/17 12:30 Ur Epithelial Cells /lpf (FEW) 08/14/17 12:30 Urine Bacteria /hpf (NONE SEEN) 08/14/17 12:30 - Physical Exam Vitals and I&O: Vital Signs Temp 97.8 F 08/19/17 10:25 Pulse 72 08/19/17 10:25 Resp 20 08/19/17 10:25 BP 110/68 08/19/17 10:25 Pulse Ox 94 08/19/17 10:25 Intake & Output 08/18/17 08/19/17 08/19/17 18:59 06:59 18:59 Intake Total 1100 200 Output Total 600 Balance 1100 -400 Weight (lbs) 159 lb 212 lb Intake: Intake, IV Amount 1100 D5-0.9%Ns 1,000 ml @ 80 1000 mls/hr IV .[id number] [facility] Rx #:[id number] Meropenem 500 mg In 100 Sodium Chloride 0.9% 100 ml @ 100 mls/hr IV Q12H [facility] Rx#:[id number] Oral 200 Output: Urine 600 Other: # Bowel Movements 0 Active Medications: Current Medications Acetaminophen (Tylenol) 650 mg PO Q4HR PRN PRN Reason: Pain (Mild) Stop: 10/13/17 14:46 Last Admin: 08/17/17 20:45 Dose: 650 mg Albuterol Sulfate (Albuterol 2.5mg/3ml Neb Ud) 2.5 mg HHN Q2HRT PRN PRN Reason: Shortness of Breath or Wheeze Stop: 10/13/17 14:49 Baclofen (Lioresal) 5 mg PO TID [facility] Stop: 10/13/17 20:59 Last Admin: 08/18/17 20:56 Dose: 5 mg [place] Oil/[place] Balsam/Trypsin (Venelex) 1 appl TP DAILY [facility] Stop: 10/17/17 13:59 Last Admin: 08/18/17 17:32 Dose: 1 appl Dextrose/Sodium Chloride (D5-0.9%Ns) 1,000 mls @ 80 mls/hr IV .[id number] [facility] Stop: 10/13/17 14:59 Last Admin: 08/18/17 17:35 Dose: 80 mls/hr Meropenem 500 mg/ Sodium (Chloride) 100 mls @ 100 mls/hr IV Q12H [facility] Stop: 10/14/17 15:40 Last Admin: 08/19/17 04:23 Dose: 100 mls/hr Ipratropium [place] (Atrovent Neb 0.5mg/2.5ml) 0.5 mg IH Q2HRT PRN PRN Reason: Shortness of Breath or Wheeze Stop: 10/13/17 14:49 Midodrine (Proamatine) 10 mg PO TID [facility] Stop: 10/16/17 13:59 Last Admin: 08/18/17 20:56 Dose: 10 mg Morphine Sulfate (Morphine) 1 mg IVP Q4H PRN PRN Reason: Pain (Severe) Stop: 10/13/17 14:49 Ondansetron HCl (Zofran) 4 mg IV Q8H PRN PRN Reason: Nausea / Vomiting Stop: 10/13/17 14:49 Zinc Sulfate (Zinc Sulfate) 220 mg PO DAILY [facility] Stop: 10/14/17 08:59 Last Admin: 08/18/17 09:51 Dose: 220 mg General: demented HEENT: NC/AT, PERRLA, thinning hair, poor dentition Neck: Supple, deformity Lungs: CTAB Cardiovascular: RRR, Normal S1, Normal S2, without murmur Abdomen: soft, non-tender, globular, non-distended Extremities: excoriation, ecchymosis, contracture Neurological: no change - Procedures Procedures: Procedures Procedure Code Date CYSTOSCOPY & URETER CATHETER 93699 08/14/17 EXTIRPATION OF MATTER FROM BLADDER, ENDO [id number] 08/14/17 INSERTION OF OTHER DEVICE INTO BLADDER, ENDO [id number] 08/14/17 Internal Medicine Assmt/Plan - Assessment Assessment: urine culture +proteus mirabilis Sepsis bacteremia Leukocytosis. UTI. Decubitus ulcer. Schizoaffective disorder. Moderate protein-calorie malnutrition. - Plan Plan: continue ivabx ivf for hydration cbc/bmp in am continue current plan of care Nutritional Asmnt/Malnutr-PDOC - Dietary Evaluation Malnutrition Findings (Please click <Entered> for more info): Nutritional Asmnt/Malnutrition Start: 08/16/17 18: 05 Text: Status: Complete Freq: Document 08/16/17 18:05 HEN (Rec: 08/16/17 18:17 HEN [id number]) Nutritional Asmnt/Malnutrition Patient General Information Nutritional Screening High Risk Diagnosis hematuria, sepsis Pertinent Medical Hx/Surgical Hx multiple sclerosis, decubitus ulceration, malnutrition Subjective Information Pt is non verbal noted. Spoke with nurse, nurse reported pt eats well, consumed 80% of breakfast and lunch today. Per MD note, pt hadcystoscopy on 08/15. Current Diet Order/ Nutrition Support pureed Pertinent Medications D5-0.9%nx, zinc Pertinent Labs 08/16 Na 141, K 3.6, Cl 114, BUN 27, Glucose 114 08/14 GLucose 145, POC 143 Nutritional Hx/Data Height 5 ft 5 in Height (Calculated Centimeters) 165.1 Current Weight (lbs) 157 lb Weight (Calculated Kilograms) 71.2 Weight (Calculated Grams) 74766.0 [place] Body Weight 136 Body Mass Index (BMI) 26.1 Weight Status Overweight GI Symptoms GI Symptoms None Last BM 1 Difficult in: None Skin Integrity/Comment: decubitus ulceration to cyccyx Current %PO Good (75-100%) Estimated Nutritional Goals BEE in Kcals: Using Current wt Calories/Kcals/Kg 25-30 Kcals Calculated 5493-1897 Protein: Using Current wt Protein g/k-1.2 Protein Calculated 71-85 Fluid: ml 1775-2130ml (1ml/kcal) Nutritional Problem 1. Problem Problem increased nutrition needs ( protein0 Etiology increased metabolic demand for wound healing Signs/Symptoms: decubitus ulceration Intervention/Recommendation Comments 1. Continue with current diet as ordered. Recommend vitamin C to help with wound healing 2. Monitor PO intake, wt, labs and skin integrity 3. F/U as moderate risk in 3-5 days, 08/19-08/21 Expected Outcomes/Goals Expected Outcomes/Goals 1. PO intake to meet at least 75% of nutritional needs. 2. Wt stability, skin to remain intact, labs to approach WNL.
[2017-08-19] MEDS ORDERED: Neostigmine 10mg/10mL Vial ONE (12:21)
[2017-08-19] MEDS: Multivitamin w/ Minerals Tab PO SCH (15:16)
[2017-08-19] MEDS: Venelex 60gm Tube TP SCH (15:16)
[2017-08-19] MEDS: cefTRIAXone 2 GM in Sodium Chloride 0.9% 50 ML IV SCH (16:09)
[2017-08-19] MEDS: HYDROmorphone 1 mg/mL 1mL Syr IVP PRN ×2 (16:18→21:55)
--- NOTE | 2017-08-19 22:12 | Progress Notes ---
DATE: UROLOGY FOLLOWUP SUBJECTIVE: The patient had debridement of his decubitus and a diverting colostomy today, and he tolerated that very well. Sal[place]on catheter is functioning and draining well. OBJECTIVE: On exam, VITAL SIGNS: Temperature 98.9, heart rate 92, blood pressure 117/74. ABDOMEN: Post surgical colostomy area looks satisfactory, suprapubic area normal, no perineal collection, scrotum normal. EXTREMITIES: Contracted, but no edema. LABORATORY DATA: No CBC recorded today. Sugar 100 this morning. IMPRESSION: 1. Gross hematuria from urethral injury and a false passage secondary to Salmeron catheter trauma. This has resolved after cystoscopy and Salmeron placement in the satisfactory position. 2. Decubitus stage 4, status post debridement and diverting colostomy. 3. Multiple sclerosis and quadriparesis with contractures, no change. 4. History of hepatitis B, stable. JOB# [id number]
[2017-08-20] MEDS: D5-0.9%NS 1,000 ML IV SCH (01:40)
[2017-08-20 05:26] LABS: % BASOPHILS 3.1 % (0.0-2.0); % EOSINOPHILS 0.9 % (0.0-5.0); % LYMPHOCYTES 21.3 % (20.0-50.0); % MONOCYTES 7.5 % (2.0-10.0); % NEUTROPHILS 67.2 % (40.0-80.0); BASOPHILE ABSOLUTE 0.3 Th/cumm (0-0.2); EOSINOPHILE ABSOLUTE 0.1 Th/cmm (0.1-0.4); HEMATOCRIT 29.6 % (41.0-60); HEMOGLOBIN 9.8 gm/dL (12-16); LYMPHOCYTE ABSOLUTE 1.9 Th/cmm (1.5-3.0); MEAN CELL VOLUME 87.2 fl (80-99); MEAN CORPUSCULAR HEMOGLOBIN 28.9 pg (26.0-30.0); MEAN CORPUSCULAR HGB CONC 33.1 pg (28.0-36.0); MONOCYTE ABSOLUTE 0.7 Th/cmm (0.3-1.0); NEUTROPHILE ABSOLUTE 5.9 Th/cmm (1.8-8.0); PLATELET COUNT 542 Th/cmm (150-400); RED BLOOD COUNT 3.39 Mil/cmm (4.30-5.70); RED CELL DISTRIBUTION WIDTH 13.9 % (11.5-20.0); WHITE BLOOD COUNT 8.9 Th/cmm (4.8-10.8)
[2017-08-20 05:56] LABS: ANION GAP 9.8 (7.0-16.0); BUN - UREA NITROGEN 5 mg/dL (7-25); CALCIUM SERUM 8.4 mg/dL (8.6-10.3); CARBON DIOXIDE 25.3 mEq/L (21.0-31.0); CHLORIDE 110 mEq/L (98-107); CREATININE - SERUM 0.4 mg/dL (0.7-1.3); GFR AFRICAN-AMERICAN > 60.0 ml/min (>90); GFR NON AFRICAN-AMERICAN > 60.0 ml/min; GLUCOSE 108 mg/dL (70-105); MAGNESIUM 1.5 mg/dL (1.9-2.7); POTASSIUM SERUM 3.1 mEq/L (3.5-5.1); SODIUM SERUM 142 mEq/L (136-145)
--- NOTE | 2017-08-20 09:19 | General Progress Note ---
Subjective - Review of Systems Service Date: 08/20/17 Events since last encounter: tolerating oral intake incision dressings dry Objective - Results Result Diagrams: 08/20/17 04:57 08/20/17 04:57 Recent Labs: Laboratory Last Values WBC 8.9 Th/cmm (4.8-10.8) 08/20/17 04:57 RBC 3.39 Mil/cmm (4.30-5.70) L 08/20/17 04:57 Hgb 9.8 gm/dL (12-16) L 08/20/17 04:57 Hct 29.6 % (41.0-60) L 08/20/17 04:57 MCV 87.2 fl (80-99) 08/20/17 04:57 MCH 28.9 pg (26.0-30.0) 08/20/17 04:57 MCHC Differential 33.1 pg (28.0-36.0) 08/20/17 04:57 RDW 13.9 % (11.5-20.0) 08/20/17 04:57 Plt Count 542 Th/cmm (150-400) H 08/20/17 04:57 MPV 7.0 fl 08/20/17 04:57 Neutrophils % 67.2 % (40.0-80.0) 08/20/17 04:57 Band Neutrophils % 10 % (0-10) 08/15/17 05:45 Lymphocytes % 21.3 % (20.0-50.0) 08/20/17 04:57 Monocytes % 7.5 % (2.0-10.0) 08/20/17 04:57 Eosinophils % 0.9 % (0.0-5.0) 08/20/17 04:57 Basophils % 3.1 % (0.0-2.0) H 08/20/17 04:57 Neutrophils (Manual) 87 % (40-80) H 08/15/17 05:45 Lymphocytes 2 % (20-50) L 08/15/17 05:45 Monocytes 1 % (2-10) L 08/15/17 05:45 Basophils 1 % (0-3) 08/14/17 11:23 Platelet Estimate INCREASED PLATELETS (NORMAL) 08/15/17 05:45 PT 12.3 SECONDS (9.5-11.5) H 08/14/17 15:28 INR 1.17 (0.5-1.4) 08/14/17 15:28 PTT (Actin FS) 33.8 SECONDS (26.0-38.0) 08/14/17 15:28 Sodium 142 mEq/L (136-145) 08/20/17 04:57 Potassium 3.1 mEq/L (3.5-5.1) L 08/20/17 04:57 Chloride 110 mEq/L (98-107) H 08/20/17 04:57 Carbon Dioxide 25.3 mEq/L (21.0-31.0) 08/20/17 04:57 Anion Gap 9.8 (7.0-16.0) 08/20/17 04:57 BUN 5 mg/dL (7-25) L 08/20/17 04:57 Creatinine 0.4 mg/dL (0.7-1.3) L 08/20/17 04:57 Est GFR ( Amer) > 60.0 ml/min (>90) 08/20/17 04:57 Est GFR (Non-Af Amer) > 60.0 ml/min 08/20/17 04:57 BUN/Creatinine Ratio 12.5 08/20/17 04:57 Glucose 108 mg/dL (70-105) H 08/20/17 04:57 POC Glucose 100 MG/DL (70 - 105) 08/19/17 05:12 Whole Bld Lactic Acid 1.56 mmol/L (0.60-1.99) 08/14/17 11:23 Calcium 8.4 mg/dL (8.6-10.3) L 08/20/17 04:57 Magnesium 1.5 mg/dL (1.9-2.7) L 08/20/17 04:57 Total Bilirubin 0.4 mg/dL (0.3-1.0) 08/16/17 05:35 AST 48 U/L (13-39) H 08/16/17 05:35 ALT 30 U/L (7-52) 08/16/17 05:35 Alkaline Phosphatase 87 U/L (34-104) 08/16/17 05:35 B-Natriuretic Peptide 26.4 pg/mL (5.0-100.0) 08/17/17 05:50 Total Protein 6.4 gm/dL (6.0-8.3) 08/16/17 05:35 Albumin 2.3 gm/dL (4.2-5.5) L 08/16/17 05:35 Globulin 4.1 gm/dL 08/16/17 05:35 Albumin/Globulin Ratio 0.6 (1.0-1.8) L 08/16/17 05:35 Urine Source RANDOM 08/14/17 12:30 Urine Color RED 08/14/17 12:30 Urine Clarity BLOODY (CLEAR) 08/14/17 12:30 Urine pH 8.0 (4.6 - 8.0) 08/14/17 12:30 Ur Specific [place] 1.020 (1.005-1.030) 08/14/17 12:30 Urine Protein >=300 mg/dL (NEGATIVE) 08/14/17 12:30 Urine Glucose (UA) 100 mg/dL (NEGATIVE) H 08/14/17 12:30 Urine Ketones NEGATIVE mg/dL (NEGATIVE) 08/14/17 12:30 Urine Blood LARGE (NEGATIVE) H 08/14/17 12:30 Urine Nitrate POSITIVE (NEGATIVE) H 08/14/17 12:30 Urine Bilirubin SMALL (NEGATIVE) H 08/14/17 12:30 Urine Urobilinogen 1.0 E.U./dL (0.2 - 1.0) 08/14/17 12:30 Ur Leukocyte Esterase TRACE (NEGATIVE) H 08/14/17 12:30 Urine RBC >100 /hpf (0-5) H 08/14/17 12:30 Urine WBC /hpf (0-5) 08/14/17 12:30 Ur Epithelial Cells /lpf (FEW) 08/14/17 12:30 Urine Bacteria /hpf (NONE SEEN) 08/14/17 12:30 - Physical Exam Vitals and I&O: Vital Signs Temp 98.2 F 08/20/17 04:00 Pulse 93 08/20/17 07:03 Resp 18 08/20/17 07:03 BP 100/70 08/20/17 04:00 Pulse Ox 100 08/20/17 07:03 Intake & Output 08/19/17 08/20/17 08/20/17 18:59 06:59 18:59 Intake Total 50 100 Output Total 595 Balance 50 -495 Weight (lbs) 88.723 kg Intake: Intake, IV Amount 50 [id number] 2 gm In 50 Sodium Chloride 0.9% 50 ml @ 100 mls/hr IV Q24HR [facility] Rx#:[id number] Oral 100 Output: Drainage 75 Sacrum 75 Urine 500 Other 20 Active Medications: Current Medications Acetaminophen (Tylenol) 650 mg PO Q4HR PRN PRN Reason: Pain (Mild) Stop: 10/13/17 14:46 Last Admin: 08/17/17 20:45 Dose: 650 mg Albuterol Sulfate (Albuterol 2.5mg/3ml Neb Ud) 2.5 mg HHN Q2HRT PRN PRN Reason: Shortness of Breath or Wheeze Stop: 10/13/17 14:49 Baclofen (Lioresal) 5 mg PO TID [facility] Stop: 10/13/17 20:59 Last Admin: 08/19/17 21:35 Dose: 5 mg [place] Oil/[place] Balsam/Trypsin (Venelex) 1 appl TP DAILY [facility] Stop: 10/17/17 13:59 Last Admin: 08/19/17 15:16 Dose: Not Given Hydromorphone HCl (Dilaudid) 1 mg IVP Q4HR PRN PRN Reason: Pain (Moderate) Stop: 08/20/17 12:40 Last Admin: 08/19/17 21:55 Dose: 1 mg Dextrose/Sodium Chloride (D5-0.9%Ns) 1,000 mls @ 80 mls/hr IV .[id number] [facility] Stop: 10/13/17 14:59 Last Admin: 08/20/17 01:40 Dose: 80 mls/hr Ceftriaxone Sodium 2 gm/ (Sodium Chloride) 50 mls @ 100 mls/hr IV Q24HR [facility] Stop: 10/18/17 12:44 Last Infusion: 08/19/17 16:39 Dose: Infused Ipratropium [place] (Atrovent Neb 0.5mg/2.5ml) 0.5 mg IH Q2HRT PRN PRN Reason: Shortness of Breath or Wheeze Stop: 10/13/17 14:49 Midodrine (Proamatine) 10 mg PO TID [facility] Stop: 10/16/17 13:59 Last Admin: 08/19/17 21:36 Dose: 10 mg Morphine Sulfate (Morphine) 1 mg IVP Q4H PRN PRN Reason: Pain (Severe) Stop: 10/13/17 14:49 Ondansetron HCl (Zofran) 4 mg IV Q8H PRN PRN Reason: Nausea / Vomiting Stop: 10/13/17 14:49 Zinc Sulfate (Zinc Sulfate) 220 mg PO DAILY [facility] Stop: 10/14/17 08:59 Last Admin: 08/19/17 15:16 Dose: Not Given - Procedures Procedures: Procedures Procedure Code Date CYSTOSCOPY & URETER CATHETER 62131 08/14/17 EXTIRPATION OF MATTER FROM BLADDER, ENDO [id number] 08/14/17 INSERTION OF OTHER DEVICE INTO BLADDER, ENDO [id number] 08/14/17 Nutritional Asmnt/Malnutr-PDOC - Dietary Evaluation Malnutrition Findings (Please click <Entered> for more info): Nutritional Asmnt/Malnutrition Start: 08/16/17 18: 05 Text: Status: Complete Freq: Document 08/16/17 18:05 PROSPER (Rec: 08/16/17 [facility] Nutritional Asmnt/Malnutrition Patient General Information Nutritional Screening High Risk Diagnosis hematuria, sepsis Pertinent Medical Hx/Surgical Hx multiple sclerosis, decubitus ulceration, malnutrition Subjective Information Pt is non verbal noted. Spoke with nurse, nurse reported pt eats well, consumed 80% of breakfast and lunch today. Per MD note, pt hadcystoscopy on 08/15. Current Diet Order/ Nutrition Support pureed Pertinent Medications D5-0.9%nx, zinc Pertinent Labs 08/16 Na 141, K 3.6, Cl 114, BUN 27, Glucose 114 3/3 GLucose 145, POC 143 Nutritional Hx/Data Height 1.65 m Height (Calculated Centimeters) 165.1 Current Weight (lbs) 71.214 kg Weight (Calculated Kilograms) 71.2 Weight (Calculated Grams) 69605.0 [place] Body Weight 136 Body Mass Index (BMI) 26.1 Weight Status Overweight GI Symptoms GI Symptoms None Last BM 1 Difficult in: None Skin Integrity/Comment: decubitus ulceration to cyccyx Current %PO Good (75-100%) Estimated Nutritional Goals BEE in Kcals: Using Current wt Calories/Kcals/Kg 25-30 Kcals Calculated 3484-2050 Protein: Using Current wt Protein g/k-1.2 Protein Calculated 71-85 Fluid: ml 1775-2130ml (1ml/kcal) Nutritional Problem 1. Problem Problem increased nutrition needs ( protein0 Etiology increased metabolic demand for wound healing Signs/Symptoms: decubitus ulceration Intervention/Recommendation Comments 1. Continue with current diet as ordered. Recommend vitamin C to help with wound healing 2. Monitor PO intake, wt, labs and skin integrity 3. F/U as moderate risk in 3-5 days, 08/19-08/21 Expected Outcomes/Goals Expected Outcomes/Goals 1. PO intake to meet at least 75% of nutritional needs. 2. Wt stability, skin to remain intact, labs to approach WNL.
[2017-08-20] MEDS: Multivitamin w/ Minerals Tab PO SCH (09:40)
--- NOTE | 2017-08-20 09:41 | Internal Medicine Prog Note ---
Internal Medicine Subjective - Subjective Service Date: 08/20/17 Patient is:: asleep, interactive, eyes closed Patient Complaints of:: pain with urination Per staff patient has:: noncompliant, confused Internal Medicine Objective - Results Result Diagrams: 08/20/17 04:57 08/20/17 04:57 Recent Labs: Laboratory Last Values WBC 8.9 Th/cmm (4.8-10.8) 08/20/17 04:57 RBC 3.39 Mil/cmm (4.30-5.70) L 08/20/17 04:57 Hgb 9.8 gm/dL (12-16) L 08/20/17 04:57 Hct 29.6 % (41.0-60) L 08/20/17 04:57 MCV 87.2 fl (80-99) 08/20/17 04:57 MCH 28.9 pg (26.0-30.0) 08/20/17 04:57 MCHC Differential 33.1 pg (28.0-36.0) 08/20/17 04:57 RDW 13.9 % (11.5-20.0) 08/20/17 04:57 Plt Count 542 Th/cmm (150-400) H 08/20/17 04:57 MPV 7.0 fl 08/20/17 04:57 Neutrophils % 67.2 % (40.0-80.0) 08/20/17 04:57 Band Neutrophils % 10 % (0-10) 08/15/17 05:45 Lymphocytes % 21.3 % (20.0-50.0) 08/20/17 04:57 Monocytes % 7.5 % (2.0-10.0) 08/20/17 04:57 Eosinophils % 0.9 % (0.0-5.0) 08/20/17 04:57 Basophils % 3.1 % (0.0-2.0) H 08/20/17 04:57 Neutrophils (Manual) 87 % (40-80) H 08/15/17 05:45 Lymphocytes 2 % (20-50) L 08/15/17 05:45 Monocytes 1 % (2-10) L 08/15/17 05:45 Basophils 1 % (0-3) 08/14/17 11:23 Platelet Estimate INCREASED PLATELETS (NORMAL) 08/15/17 05:45 PT 12.3 SECONDS (9.5-11.5) H 08/14/17 15:28 INR 1.17 (0.5-1.4) 08/14/17 15:28 PTT (Actin FS) 33.8 SECONDS (26.0-38.0) 08/14/17 15:28 Sodium 142 mEq/L (136-145) 08/20/17 04:57 Potassium 3.1 mEq/L (3.5-5.1) L 08/20/17 04:57 Chloride 110 mEq/L (98-107) H 08/20/17 04:57 Carbon Dioxide 25.3 mEq/L (21.0-31.0) 08/20/17 04:57 Anion Gap 9.8 (7.0-16.0) 08/20/17 04:57 BUN 5 mg/dL (7-25) L 08/20/17 04:57 Creatinine 0.4 mg/dL (0.7-1.3) L 08/20/17 04:57 Est GFR ( Amer) > 60.0 ml/min (>90) 08/20/17 04:57 Est GFR (Non-Af Amer) > 60.0 ml/min 08/20/17 04:57 BUN/Creatinine Ratio 12.5 08/20/17 04:57 Glucose 108 mg/dL (70-105) H 08/20/17 04:57 POC Glucose 100 MG/DL (70 - 105) 08/19/17 05:12 Whole Bld Lactic Acid 1.56 mmol/L (0.60-1.99) 08/14/17 11:23 Calcium 8.4 mg/dL (8.6-10.3) L 08/20/17 04:57 Magnesium 1.5 mg/dL (1.9-2.7) L 08/20/17 04:57 Total Bilirubin 0.4 mg/dL (0.3-1.0) 08/16/17 05:35 AST 48 U/L (13-39) H 08/16/17 05:35 ALT 30 U/L (7-52) 08/16/17 05:35 Alkaline Phosphatase 87 U/L (34-104) 08/16/17 05:35 B-Natriuretic Peptide 26.4 pg/mL (5.0-100.0) 08/17/17 05:50 Total Protein 6.4 gm/dL (6.0-8.3) 08/16/17 05:35 Albumin 2.3 gm/dL (4.2-5.5) L 08/16/17 05:35 Globulin 4.1 gm/dL 08/16/17 05:35 Albumin/Globulin Ratio 0.6 (1.0-1.8) L 08/16/17 05:35 Urine Source RANDOM 08/14/17 12:30 Urine Color RED 08/14/17 12:30 Urine Clarity BLOODY (CLEAR) 08/14/17 12:30 Urine pH 8.0 (4.6 - 8.0) 08/14/17 12:30 Ur Specific [place] 1.020 (1.005-1.030) 08/14/17 12:30 Urine Protein >=300 mg/dL (NEGATIVE) 08/14/17 12:30 Urine Glucose (UA) 100 mg/dL (NEGATIVE) H 08/14/17 12:30 Urine Ketones NEGATIVE mg/dL (NEGATIVE) 08/14/17 12:30 Urine Blood LARGE (NEGATIVE) H 08/14/17 12:30 Urine Nitrate POSITIVE (NEGATIVE) H 08/14/17 12:30 Urine Bilirubin SMALL (NEGATIVE) H 08/14/17 12:30 Urine Urobilinogen 1.0 E.U./dL (0.2 - 1.0) 08/14/17 12:30 Ur Leukocyte Esterase TRACE (NEGATIVE) H 08/14/17 12:30 Urine RBC >100 /hpf (0-5) H 08/14/17 12:30 Urine WBC /hpf (0-5) 08/14/17 12:30 Ur Epithelial Cells /lpf (FEW) 08/14/17 12:30 Urine Bacteria /hpf (NONE SEEN) 08/14/17 12:30 - Physical Exam Vitals and I&O: Vital Signs Temp 98.2 F 08/20/17 04:00 Pulse 93 08/20/17 07:03 Resp 18 08/20/17 07:03 BP 100/70 08/20/17 04:00 Pulse Ox 100 08/20/17 07:03 Intake & Output 08/19/17 08/20/17 08/20/17 18:59 06:59 18:59 Intake Total 50 100 Output Total 595 Balance 50 -495 Weight (lbs) 195 lb 9.6 oz Intake: Intake, IV Amount 50 cefTRIAXone 2 gm In 50 Sodium Chloride 0.9% 50 ml @ 100 mls/hr IV Q24HR [facility] Rx#:[id number] Oral 100 Output: Drainage 75 Sacrum 75 Urine 500 Other 20 Active Medications: Current Medications Acetaminophen (Tylenol) 650 mg PO Q4HR PRN PRN Reason: Pain (Mild) Stop: 10/13/17 14:46 Last Admin: 08/17/17 20:45 Dose: 650 mg Albuterol Sulfate (Albuterol 2.5mg/3ml Neb Ud) 2.5 mg HHN Q2HRT PRN PRN Reason: Shortness of Breath or Wheeze Stop: 10/13/17 14:49 Baclofen (Lioresal) 5 mg PO TID [facility] Stop: 10/13/17 20:59 Last Admin: 08/19/17 21:35 Dose: 5 mg [place] Oil/[place] Balsam/Trypsin (Venelex) 1 appl TP DAILY [facility] Stop: 10/17/17 13:59 Last Admin: 08/19/17 15:16 Dose: Not Given Hydromorphone HCl (Dilaudid) 1 mg IVP Q4HR PRN PRN Reason: Pain (Moderate) Stop: 08/20/17 12:40 Last Admin: 08/19/17 21:55 Dose: 1 mg Dextrose/Sodium Chloride (D5-0.9%Ns) 1,000 mls @ 80 mls/hr IV .[id number] [facility] Stop: 10/13/17 14:59 Last Admin: 08/20/17 01:40 Dose: 80 mls/hr Ceftriaxone Sodium 2 gm/ (Sodium Chloride) 50 mls @ 100 mls/hr IV Q24HR [facility] Stop: 10/18/17 12:44 Last Infusion: 08/19/17 16:39 Dose: Infused Ipratropium [place] (Atrovent Neb 0.5mg/2.5ml) 0.5 mg IH Q2HRT PRN PRN Reason: Shortness of Breath or Wheeze Stop: 10/13/17 14:49 Midodrine (Proamatine) 10 mg PO TID [facility] Stop: 10/16/17 13:59 Last Admin: 08/19/17 21:36 Dose: 10 mg Morphine Sulfate (Morphine) 1 mg IVP Q4H PRN PRN Reason: Pain (Severe) Stop: 10/13/17 14:49 Ondansetron HCl (Zofran) 4 mg IV Q8H PRN PRN Reason: Nausea / Vomiting Stop: 10/13/17 14:49 Zinc Sulfate (Zinc Sulfate) 220 mg PO DAILY [facility] Stop: 10/14/17 08:59 Last Admin: 08/19/17 15:16 Dose: Not Given General: demented HEENT: NC/AT, PERRLA, thinning hair, poor dentition Neck: Supple, deformity Lungs: CTAB Cardiovascular: RRR, Normal S1, Normal S2, without murmur Abdomen: soft, non-tender, globular, non-distended Extremities: excoriation, ecchymosis, contracture Neurological: no change - Procedures Procedures: Procedures Procedure Code Date CYSTOSCOPY & URETER CATHETER 73667 08/14/17 EXTIRPATION OF MATTER FROM BLADDER, ENDO [id number] 08/14/17 INSERTION OF OTHER DEVICE INTO BLADDER, ENDO [id number] 08/14/17 Internal Medicine Assmt/Plan - Assessment Assessment: urine culture +proteus mirabilis Sepsis bacteremia Leukocytosis. UTI. Decubitus ulcer. Schizoaffective disorder. Moderate protein-calorie malnutrition. - Plan Plan: continue ivabx ivf for hydration cbc/bmp in am continue current plan of care Nutritional Asmnt/Malnutr-PDOC - Dietary Evaluation Malnutrition Findings (Please click <Entered> for more info): Nutritional Asmnt/Malnutrition Start: 08/16/17 18: 05 Text: Status: Complete Freq: Document 08/16/17 18:05 HEN (Rec: 08/16/17 18:17 [id number] Nutritional Asmnt/Malnutrition Patient General Information Nutritional Screening High Risk Diagnosis hematuria, sepsis Pertinent Medical Hx/Surgical Hx multiple sclerosis, decubitus ulceration, malnutrition Subjective Information Pt is non verbal noted. Spoke with nurse, nurse reported pt eats well, consumed 80% of breakfast and lunch today. Per MD note, pt hadcystoscopy on 08/15. Current Diet Order/ Nutrition Support pureed Pertinent Medications D5-0.9%nx, zinc Pertinent Labs 08/16 Na 141, K 3.6, Cl 114, BUN 27, Glucose 114 3/3 GLucose 145, POC 143 Nutritional Hx/Data Height 5 ft 5 in Height (Calculated Centimeters) 165.1 Current Weight (lbs) 157 lb Weight (Calculated Kilograms) 71.2 Weight (Calculated Grams) 17612.0 [place] Body Weight 136 Body Mass Index (BMI) 26.1 Weight Status Overweight GI Symptoms GI Symptoms None Last BM 1 Difficult in: None Skin Integrity/Comment: decubitus ulceration to cyccyx Current %PO Good (75-100%) Estimated Nutritional Goals BEE in Kcals: Using Current wt Calories/Kcals/Kg 25-30 Kcals Calculated 2319-2097 Protein: Using Current wt Protein g/k-1.2 Protein Calculated 71-85 Fluid: ml 1775-2130ml (1ml/kcal) Nutritional Problem 1. Problem Problem increased nutrition needs ( protein0 Etiology increased metabolic demand for wound healing Signs/Symptoms: decubitus ulceration Intervention/Recommendation Comments 1. Continue with current diet as ordered. Recommend vitamin C to help with wound healing 2. Monitor PO intake, wt, labs and skin integrity 3. F/U as moderate risk in 3-5 days, 08/19-08/21 Expected Outcomes/Goals Expected Outcomes/Goals 1. PO intake to meet at least 75% of nutritional needs. 2. Wt stability, skin to remain intact, labs to approach WNL.
[2017-08-20] MEDS: Venelex 60gm Tube TP SCH (09:45)
[2017-08-20] MEDS: HYDROmorphone 1 mg/mL 1mL Syr IVP PRN (09:50)
[2017-08-20] MEDS ORDERED: Potassium Chloride 40 MEQ, Lidocaine 1% 20mL Vial 25 MG in Sodium Chloride 0.9% 250 ML IV ONE (11:15)
[2017-08-20] MEDS ORDERED: Mag Sulfate 2gm/50mL Premix 2 GM/50 ML BAG IV ONE (11:15)
[2017-08-20] MEDS: cefTRIAXone 2 GM in Sodium Chloride 0.9% 50 ML IV SCH (11:50)
[2017-08-20] MEDS: KCL 20mEq/100mL Premix 20 MEQ/100 ML PIGGYBACK IV SCH ×2 (15:15→17:15)
--- NOTE | 2017-08-20 17:00 | Operative Report ---
DATE OF SURGERY: 08/19/2017 PREOPERATIVE DIAGNOSES: 1. Stage 4 sacral decubitus ulcer. 2. Incontinence. 3. Multiple sclerosis. 4. Schizoaffective disorder. SURGEON: Dr. Carrera ANESTHESIA: General. ANESTHESIOLOGIST: Sherif. OPERATION DONE: 1. Diverting colostomy. 2. Excisional debridement of sacral decubitus ulcer, size is 8 x 10 cm externally with undermining twice the external diameter. 3. Application of wound VAC. 4. Ashley's pouch. ESTIMATED BLOOD LOSS: 20 mL. INDICATIONS FOR SURGERY: The patient with nonhealing sacral decubitus ulcer present for a few months and incontinent and unable to communicate verbally. Informed consent discussed with the mother via telephone and brother signed the consent whom I talked to as well. DESCRIPTION OF PROCEDURE: The patient was given general anesthesia. The abdomen was prepped with ChloraPrep and draped in appropriate manner. Midline abdominal incision was made. Bleeders were coagulated. The fascia was divided and the peritoneum entered. Retractors applied. The colon was free of diverticula but very redundant. The descending colon level approximately 8 inches from the pelvic brim. The colon was divided with GI instrument. The distal portion was oversewn the staple line with 3-0 silk. The proximal portion was brought out as a colostomy in the left lower quadrant of the abdomen. Following satisfactory hemostasis, the descending colon was sutured to the undersurface of the abdominal wall utilizing running suture of 3-0 silk incorporating the mesentery to the lateral abdominal wall to prevent internal herniation. The abdominal incision was closed following correct sponge count with running suture of #1 PDS. Skin was closed with subcuticular suture of 4-0 Vicryl. Sterile dressing was placed over this including Dermabond, 4 x 4 and Op-Site to prevent infection from the colostomy. The colostomy was matured utilizing everting suture of 4-0 Vicryl. A colostomy bag was placed over this. The patient was then placed in the left lateral decubitus position and sharp debridement was carried out of necrotic tissue with the base of which was the sacral bone. There was undermining twice the size of the external diameter. A silver sponge was then used to fit into the ulcer with a bridge to the lateral aspect for the vacuum. The patient tolerated the procedure well. JOB# [id number]
--- NOTE | 2017-08-20 20:05 | Progress Notes ---
DATE: SUBJECTIVE: The patient is stable after the surgery yesterday and colostomy is functioning. Salmeron catheter shows no blood. He has no complaints. OBJECTIVE: VITAL SIGNS: Temperature 98.2, heart rate 93, blood pressure 100/70, respirations 20, and saturating at 100%. ABDOMEN: Soft, post-surgical. Colostomy looks okay. GENITALIA: Unremarkable and normal with the Salmeron catheter showing no blood. EXTREMITIES: Contracted without edema. LABORATORY DATA: White count 8.9, hemoglobin 9.8, creatinine 0.4, and potassium 3.1. IMPRESSION: Urethral trauma, hematuria, and post-cystoscopy status with Salmeron catheter functioning well. History of multiple sclerosis and quadriplegia, no change. Stage IV decubitus, status post debridement and diverting colostomy, doing well. Also history of hepatitis B, clinically stable. JOB# [id number]
[2017-08-21 08:07] LABS: % BASOPHILS 0.1 % (0.0-2.0); % EOSINOPHILS 0.7 % (0.0-5.0); % LYMPHOCYTES 25.3 % (20.0-50.0); % MONOCYTES 9.2 % (2.0-10.0); % NEUTROPHILS 64.7 % (40.0-80.0); EOSINOPHILE ABSOLUTE 0.1 Th/cmm (0.1-0.4); HEMATOCRIT 28.9 % (41.0-60); HEMOGLOBIN 9.6 gm/dL (12-16); LYMPHOCYTE ABSOLUTE 2.7 Th/cmm (1.5-3.0); MEAN CELL VOLUME 87.1 fl (80-99); MEAN CORPUSCULAR HEMOGLOBIN 28.9 pg (26.0-30.0); MEAN CORPUSCULAR HGB CONC 33.2 pg (28.0-36.0); MEAN PLATELET VOLUME 6.9 fl; NEUTROPHILE ABSOLUTE 6.7 Th/cmm (1.8-8.0); PLATELET COUNT 543 Th/cmm (150-400); RED BLOOD COUNT 3.31 Mil/cmm (4.30-5.70); RED CELL DISTRIBUTION WIDTH 14.1 % (11.5-20.0); WHITE BLOOD COUNT 10.5 Th/cmm (4.8-10.8)
[2017-08-21 08:26] LABS: ANION GAP 6.7 (7.0-16.0); BUN - UREA NITROGEN 7 mg/dL (7-25); CALCIUM SERUM 8.5 mg/dL (8.6-10.3); CARBON DIOXIDE 26.4 mEq/L (21.0-31.0); CHLORIDE 109 mEq/L (98-107); CREATININE - SERUM 0.5 mg/dL (0.7-1.3); GFR AFRICAN-AMERICAN > 60.0 ml/min (>90); GFR NON AFRICAN-AMERICAN > 60.0 ml/min; GLUCOSE 162 mg/dL (70-105); POTASSIUM SERUM 3.1 mEq/L (3.5-5.1); SODIUM SERUM 139 mEq/L (136-145)
[2017-08-21] MEDS: Multivitamin w/ Minerals Tab PO SCH (08:40)
[2017-08-21] MEDS: Venelex 60gm Tube TP SCH (08:47)
[2017-08-21] MEDS: Albuterol Nebulizer 2.5mg/3mL HHN PRN ×3 (08:52→21:04)
[2017-08-21] MEDS: Ipratropium Neb 0.5 mg/2.5 mL UD IH PRN ×3 (08:52→21:04)
[2017-08-21] MEDS: cefTRIAXone 2 GM in Sodium Chloride 0.9% 50 ML IV SCH (12:46)
[2017-08-21] MEDS ORDERED: Potassium Chloride 20 mEq ER Tab PO ONE (16:31)
--- NOTE | 2017-08-21 16:31 | Internal Medicine Prog Note ---
Internal Medicine Subjective - Subjective Service Date: 08/21/17 Patient is:: asleep, interactive, eyes closed Patient Complaints of:: pain with urination Per staff patient has:: noncompliant, confused Internal Medicine Objective - Results Result Diagrams: 08/21/17 07:43 08/21/17 07:43 Recent Labs: Laboratory Last Values WBC 10.5 Th/cmm (4.8-10.8) 08/21/17 07:43 RBC 3.31 Mil/cmm (4.30-5.70) L 08/21/17 07:43 Hgb 9.6 gm/dL (12-16) L 08/21/17 07:43 Hct 28.9 % (41.0-60) L 08/21/17 07:43 MCV 87.1 fl (80-99) 08/21/17 07:43 MCH 28.9 pg (26.0-30.0) 08/21/17 07:43 MCHC Differential 33.2 pg (28.0-36.0) 08/21/17 07:43 RDW 14.1 % (11.5-20.0) 08/21/17 07:43 Plt Count 543 Th/cmm (150-400) H 08/21/17 07:43 MPV 6.9 fl 08/21/17 07:43 Neutrophils % 64.7 % (40.0-80.0) 08/21/17 07:43 Band Neutrophils % 10 % (0-10) 08/15/17 05:45 Lymphocytes % 25.3 % (20.0-50.0) 08/21/17 07:43 Monocytes % 9.2 % (2.0-10.0) 08/21/17 07:43 Eosinophils % 0.7 % (0.0-5.0) 08/21/17 07:43 Basophils % 0.1 % (0.0-2.0) 08/21/17 07:43 Neutrophils (Manual) 87 % (40-80) H 08/15/17 05:45 Lymphocytes 2 % (20-50) L 08/15/17 05:45 Monocytes 1 % (2-10) L 08/15/17 05:45 Basophils 1 % (0-3) 08/14/17 11:23 Platelet Estimate INCREASED PLATELETS (NORMAL) 08/15/17 05:45 PT 12.3 SECONDS (9.5-11.5) H 08/14/17 15:28 INR 1.17 (0.5-1.4) 08/14/17 15:28 PTT (Actin FS) 33.8 SECONDS (26.0-38.0) 08/14/17 15:28 Sodium 139 mEq/L (136-145) 08/21/17 07:43 Potassium 3.1 mEq/L (3.5-5.1) L 08/21/17 07:43 Chloride 109 mEq/L (98-107) H 08/21/17 07:43 Carbon Dioxide 26.4 mEq/L (21.0-31.0) 08/21/17 07:43 Anion Gap 6.7 (7.0-16.0) L 08/21/17 07:43 BUN 7 mg/dL (7-25) 08/21/17 07:43 Creatinine 0.5 mg/dL (0.7-1.3) L 08/21/17 07:43 Est GFR ( Amer) > 60.0 ml/min (>90) 08/21/17 07:43 Est GFR (Non-Af Amer) > 60.0 ml/min 08/21/17 07:43 BUN/Creatinine Ratio 14.0 08/21/17 07:43 Glucose 162 mg/dL (70-105) H 08/21/17 07:43 POC Glucose 100 MG/DL (70 - 105) 08/19/17 05:12 Whole Bld Lactic Acid 1.56 mmol/L (0.60-1.99) 08/14/17 11:23 Calcium 8.5 mg/dL (8.6-10.3) L 08/21/17 07:43 Magnesium 1.5 mg/dL (1.9-2.7) L 08/20/17 04:57 Total Bilirubin 0.4 mg/dL (0.3-1.0) 08/16/17 05:35 AST 48 U/L (13-39) H 08/16/17 05:35 ALT 30 U/L (7-52) 08/16/17 05:35 Alkaline Phosphatase 87 U/L (34-104) 08/16/17 05:35 B-Natriuretic Peptide 26.4 pg/mL (5.0-100.0) 08/17/17 05:50 Total Protein 6.4 gm/dL (6.0-8.3) 08/16/17 05:35 Albumin 2.3 gm/dL (4.2-5.5) L 08/16/17 05:35 Globulin 4.1 gm/dL 08/16/17 05:35 Albumin/Globulin Ratio 0.6 (1.0-1.8) L 08/16/17 05:35 Urine Source RANDOM 08/14/17 12:30 Urine Color RED 08/14/17 12:30 Urine Clarity BLOODY (CLEAR) 08/14/17 12:30 Urine pH 8.0 (4.6 - 8.0) 08/14/17 12:30 Ur Specific [place] 1.020 (1.005-1.030) 08/14/17 12:30 Urine Protein >=300 mg/dL (NEGATIVE) 08/14/17 12:30 Urine Glucose (UA) 100 mg/dL (NEGATIVE) H 08/14/17 12:30 Urine Ketones NEGATIVE mg/dL (NEGATIVE) 08/14/17 12:30 Urine Blood LARGE (NEGATIVE) H 08/14/17 12:30 Urine Nitrate POSITIVE (NEGATIVE) H 08/14/17 12:30 Urine Bilirubin SMALL (NEGATIVE) H 08/14/17 12:30 Urine Urobilinogen 1.0 E.U./dL (0.2 - 1.0) 08/14/17 12:30 Ur Leukocyte Esterase TRACE (NEGATIVE) H 08/14/17 12:30 Urine RBC >100 /hpf (0-5) H 08/14/17 12:30 Urine WBC /hpf (0-5) 08/14/17 12:30 Ur Epithelial Cells /lpf (FEW) 08/14/17 12:30 Urine Bacteria /hpf (NONE SEEN) 08/14/17 12:30 - Physical Exam Vitals and I&O: Vital Signs Temp 98.5 F 08/21/17 10:21 Pulse 119 08/21/17 14:00 Resp 20 08/21/17 14:00 BP 76/38 08/21/17 10:21 Pulse Ox 96 08/21/17 14:00 Intake & Output 08/20/17 08/21/17 08/21/17 18:59 06:59 18:59 Intake Total 1300 40 Output Total 510 50 Balance 790 -10 Weight (lbs) 196 lb 6 oz 196 lb Intake: Intake, IV Amount 150 KCL 20mEq/100mL Premix 20 100 meq In 100 ml @ 50 mls/ hr IV Q2H [facility] Rx#: [id number] cefTRIAXone 2 gm In 50 Sodium Chloride 0.9% 50 ml @ 100 mls/hr IV Q24HR [facility] Rx#:[id number] Oral 1150 40 Output: Drainage 10 50 Sacrum 10 50 Urine 500 Other: # Bowel Movements 0 Stool Characteristics Liquid Active Medications: Current Medications Acetaminophen (Tylenol) 650 mg PO Q4HR PRN PRN Reason: Pain (Mild) Stop: 10/13/17 14:46 Last Admin: 08/17/17 20:45 Dose: 650 mg Albuterol Sulfate (Albuterol 2.5mg/3ml Neb Ud) 2.5 mg HHN Q2HRT PRN PRN Reason: Shortness of Breath or Wheeze Stop: 10/13/17 14:49 Last Admin: 08/21/17 13:58 Dose: 2.5 mg Baclofen (Lioresal) 5 mg PO TID [facility] Stop: 10/13/17 20:59 Last Admin: 08/21/17 16:09 Dose: Not Given [place] Oil/[place] Balsam/Trypsin (Venelex) 1 appl TP DAILY [facility] Stop: 10/17/17 13:59 Last Admin: 08/21/17 08:47 Dose: Not Given Dextrose/Sodium Chloride (D5-0.9%Ns) 1,000 mls @ 80 mls/hr IV .[id number] [facility] Stop: 10/13/17 14:59 Last Admin: 08/20/17 01:40 Dose: 80 mls/hr Ceftriaxone Sodium 2 gm/ (Sodium Chloride) 50 mls @ 100 mls/hr IV Q24HR [facility] Stop: 10/18/17 12:44 Last Admin: 08/21/17 12:46 Dose: 100 mls/hr Ipratropium [place] (Atrovent Neb 0.5mg/2.5ml) 0.5 mg IH Q2HRT PRN PRN Reason: Shortness of Breath or Wheeze Stop: 10/13/17 14:49 Last Admin: 08/21/17 13:58 Dose: 0.5 mg Midodrine (Proamatine) 10 mg PO TID [facility] Stop: 10/16/17 13:59 Last Admin: 08/21/17 16:09 Dose: Not Given Morphine Sulfate (Morphine) 1 mg IVP Q4H PRN PRN Reason: Pain (Severe) Stop: 10/13/17 14:49 Ondansetron HCl (Zofran) 4 mg IV Q8H PRN PRN Reason: Nausea / Vomiting Stop: 10/13/17 14:49 Zinc Sulfate (Zinc Sulfate) 220 mg PO DAILY [facility] Stop: 10/14/17 08:59 Last Admin: 08/21/17 08:40 Dose: 220 mg General: demented HEENT: NC/AT, PERRLA, thinning hair, poor dentition Neck: Supple, deformity Lungs: CTAB Cardiovascular: RRR, Normal S1, Normal S2, without murmur Abdomen: soft, non-tender, globular, non-distended Extremities: excoriation, ecchymosis, contracture Neurological: no change - Procedures Procedures: Procedures Procedure Code Date CYSTOSCOPY & URETER CATHETER 24121 08/14/17 EXTIRPATION OF MATTER FROM BLADDER, ENDO [id number] 08/14/17 INSERTION OF OTHER DEVICE INTO BLADDER, ENDO [id number] 08/14/17 Internal Medicine Assmt/Plan - Assessment Assessment: urine culture +proteus mirabilis Sepsis bacteremia Leukocytosis. UTI. Decubitus ulcer. Schizoaffective disorder. Moderate protein-calorie malnutrition. - Plan Plan: continue ivabx ivf for hydration cbc/bmp in am continue current plan of care Nutritional Asmnt/Malnutr-PDOC - Dietary Evaluation Malnutrition Findings (Please click <Entered> for more info): Nutritional Asmnt/Malnutrition Start: 08/16/17 18: 05 Text: Status: Complete Freq: Document 08/16/17 18:05 PROSPER (Rec: 08/16/17 18:17 [facility] [email or web address]) Nutritional Asmnt/Malnutrition Patient General Information Nutritional Screening High Risk Diagnosis hematuria, sepsis Pertinent Medical Hx/Surgical Hx multiple sclerosis, decubitus ulceration, malnutrition Subjective Information Pt is non verbal noted. Spoke with nurse, nurse reported pt eats well, consumed 80% of breakfast and lunch today. Per MD note, pt hadcystoscopy on 08/15. Current Diet Order/ Nutrition Support pureed Pertinent Medications D5-0.9%nx, zinc Pertinent Labs 3 Na 141, K 3.6, Cl 114, BUN 27, Glucose 114 3/ GLucose 145, POC 143 Nutritional Hx/Data Height 5 ft 5 in Height (Calculated Centimeters) 165.1 Current Weight (lbs) 157 lb Weight (Calculated Kilograms) 71.2 Weight (Calculated Grams) 64484.0 [place] Body Weight 136 Body Mass Index (BMI) 26.1 Weight Status Overweight GI Symptoms GI Symptoms None Last BM 1 Difficult in: None Skin Integrity/Comment: decubitus ulceration to cyccyx Current %PO Good (75-100%) Estimated Nutritional Goals BEE in Kcals: Using Current wt Calories/Kcals/Kg 25-30 Kcals Calculated 1510-3208 Protein: Using Current wt Protein g/k-1.2 Protein Calculated 71-85 Fluid: ml 1775-2130ml (1ml/kcal) Nutritional Problem 1. Problem Problem increased nutrition needs ( protein0 Etiology increased metabolic demand for wound healing Signs/Symptoms: decubitus ulceration Intervention/Recommendation Comments 1. Continue with current diet as ordered. Recommend vitamin C to help with wound healing 2. Monitor PO intake, wt, labs and skin integrity 3. F/U as moderate risk in 3-5 days, 08/19-08/21 Expected Outcomes/Goals Expected Outcomes/Goals 1. PO intake to meet at least 75% of nutritional needs. 2. Wt stability, skin to remain intact, labs to approach WNL.
[2017-08-21] MEDS ORDERED: Sodium Chloride 0.9% 500 ML IV ONE (17:13)
[2017-08-22] MEDS: Ipratropium Neb 0.5 mg/2.5 mL UD IH PRN ×3 (01:35→15:05)
[2017-08-22] MEDS: Albuterol Nebulizer 2.5mg/3mL HHN PRN ×3 (01:35→15:05)
[2017-08-22] MEDS: D5-0.9%NS 1,000 ML IV SCH (01:41)
[2017-08-22 06:24] LABS: HEMATOCRIT 31.9 % (41.0-60); HEMOGLOBIN 10.8 gm/dL (12-16); MEAN CELL VOLUME 86.9 fl (80-99); MEAN CORPUSCULAR HEMOGLOBIN 29.3 pg (26.0-30.0); MEAN CORPUSCULAR HGB CONC 33.8 pg (28.0-36.0); MEAN PLATELET VOLUME 7.1 fl; PLATELET COUNT 546 Th/cmm (150-400); RED BLOOD COUNT 3.68 Mil/cmm (4.30-5.70); RED CELL DISTRIBUTION WIDTH 14.1 % (11.5-20.0)
[2017-08-22 06:32] LABS: ANION GAP 11.5 (7.0-16.0); BUN - UREA NITROGEN 10 mg/dL (7-25); CALCIUM SERUM 8.7 mg/dL (8.6-10.3); CARBON DIOXIDE 23.8 mEq/L (21.0-31.0); CHLORIDE 108 mEq/L (98-107); CREATININE - SERUM 0.5 mg/dL (0.7-1.3); GFR AFRICAN-AMERICAN > 60.0 ml/min (>90); GFR NON AFRICAN-AMERICAN > 60.0 ml/min; GLUCOSE 113 mg/dL (70-105); POTASSIUM SERUM 3.3 mEq/L (3.5-5.1); SODIUM SERUM 140 mEq/L (136-145)
[2017-08-22 06:33] LABS: MANUAL DIFF REQUIRED? YES; WHITE BLOOD COUNT 14.7 Th/cmm (4.8-10.8)
[2017-08-22 07:58] LABS: TOTAL CELLS COUNTED 100
[2017-08-22 07:59] LABS: BAND NEUTROPHILE 2 % (0-10); LYMPHOCYTE 14 % (20-50); MONOCYTE 8 % (2-10); NEUTROPHILS 76 % (40-80); PLATELET ESTIMATE INCREASED PLATELETS (NORMAL)
[2017-08-22] MEDS: Venelex 60gm Tube TP SCH (09:58)
[2017-08-22] MEDS: Multivitamin w/ Minerals Tab PO SCH (09:59)
--- NOTE | 2017-08-22 11:29 | General Progress Note ---
Subjective - Review of Systems Service Date: 08/22/17 Events since last encounter: labs noted colostomy output noted for swallowing eval Objective - Results Result Diagrams: 08/22/17 05:25 08/22/17 05:25 Recent Labs: Laboratory Last Values WBC 14.7 Th/cmm (4.8-10.8) H 08/22/17 05:25 RBC 3.68 Mil/cmm (4.30-5.70) L 08/22/17 05:25 Hgb 10.8 gm/dL (12-16) L 08/22/17 05:25 Hct 31.9 % (41.0-60) L 08/22/17 05:25 MCV 86.9 fl (80-99) 08/22/17 05:25 MCH 29.3 pg (26.0-30.0) 08/22/17 05:25 MCHC Differential 33.8 pg (28.0-36.0) 08/22/17 05:25 RDW 14.1 % (11.5-20.0) 08/22/17 05:25 Plt Count 546 Th/cmm (150-400) H 08/22/17 05:25 MPV 7.1 fl 08/22/17 05:25 Neutrophils % 64.7 % (40.0-80.0) 08/21/17 07:43 Band Neutrophils % 2 % (0-10) 08/22/17 05:25 Lymphocytes % 25.3 % (20.0-50.0) 08/21/17 07:43 Monocytes % 9.2 % (2.0-10.0) 08/21/17 07:43 Eosinophils % 0.7 % (0.0-5.0) 08/21/17 07:43 Basophils % 0.1 % (0.0-2.0) 08/21/17 07:43 Neutrophils (Manual) 76 % (40-80) 08/22/17 05:25 Lymphocytes 14 % (20-50) L 08/22/17 05:25 Monocytes 8 % (2-10) 08/22/17 05:25 Basophils 1 % (0-3) 08/14/17 11:23 Platelet Estimate INCREASED PLATELETS (NORMAL) 08/22/17 05:25 PT 12.3 SECONDS (9.5-11.5) H 08/14/17 15:28 INR 1.17 (0.5-1.4) 08/14/17 15:28 PTT (Actin FS) 33.8 SECONDS (26.0-38.0) 08/14/17 15:28 Sodium 140 mEq/L (136-145) 08/22/17 05:25 Potassium 3.3 mEq/L (3.5-5.1) L 08/22/17 05:25 Chloride 108 mEq/L (98-107) H 08/22/17 05:25 Carbon Dioxide 23.8 mEq/L (21.0-31.0) 08/22/17 05:25 Anion Gap 11.5 (7.0-16.0) 08/22/17 05:25 BUN 10 mg/dL (7-25) 08/22/17 05:25 Creatinine 0.5 mg/dL (0.7-1.3) L 08/22/17 05:25 Est GFR ( Amer) > 60.0 ml/min (>90) 08/22/17 05:25 Est GFR (Non-Af Amer) > 60.0 ml/min 08/22/17 05:25 BUN/Creatinine Ratio 20.0 08/22/17 05:25 Glucose 113 mg/dL (70-105) H 08/22/17 05:25 POC Glucose 100 MG/DL (70 - 105) 08/19/17 05:12 Whole Bld Lactic Acid 1.56 mmol/L (0.60-1.99) 08/14/17 11:23 Calcium 8.7 mg/dL (8.6-10.3) 08/22/17 05:25 Magnesium 1.5 mg/dL (1.9-2.7) L 08/20/17 04:57 Total Bilirubin 0.4 mg/dL (0.3-1.0) 08/16/17 05:35 AST 48 U/L (13-39) H 08/16/17 05:35 ALT 30 U/L (7-52) 08/16/17 05:35 Alkaline Phosphatase 87 U/L (34-104) 08/16/17 05:35 B-Natriuretic Peptide 26.4 pg/mL (5.0-100.0) 08/17/17 05:50 Total Protein 6.4 gm/dL (6.0-8.3) 08/16/17 05:35 Albumin 2.3 gm/dL (4.2-5.5) L 08/16/17 05:35 Globulin 4.1 gm/dL 08/16/17 05:35 Albumin/Globulin Ratio 0.6 (1.0-1.8) L 08/16/17 05:35 Urine Source RANDOM 08/14/17 12:30 Urine Color RED 08/14/17 12:30 Urine Clarity BLOODY (CLEAR) 08/14/17 12:30 Urine pH 8.0 (4.6 - 8.0) 08/14/17 12:30 Ur Specific [place] 1.020 (1.005-1.030) 08/14/17 12:30 Urine Protein >=300 mg/dL (NEGATIVE) 08/14/17 12:30 Urine Glucose (UA) 100 mg/dL (NEGATIVE) H 08/14/17 12:30 Urine Ketones NEGATIVE mg/dL (NEGATIVE) 08/14/17 12:30 Urine Blood LARGE (NEGATIVE) H 08/14/17 12:30 Urine Nitrate POSITIVE (NEGATIVE) H 08/14/17 12:30 Urine Bilirubin SMALL (NEGATIVE) H 08/14/17 12:30 Urine Urobilinogen 1.0 E.U./dL (0.2 - 1.0) 08/14/17 12:30 Ur Leukocyte Esterase TRACE (NEGATIVE) H 08/14/17 12:30 Urine RBC >100 /hpf (0-5) H 08/14/17 12:30 Urine WBC /hpf (0-5) 08/14/17 12:30 Ur Epithelial Cells /lpf (FEW) 08/14/17 12:30 Urine Bacteria /hpf (NONE SEEN) 08/14/17 12:30 - Physical Exam Vitals and I&O: Vital Signs Temp 99.1 F 08/22/17 04:00 Pulse 106 08/22/17 07:25 Resp 20 08/22/17 07:25 BP 141/58 08/22/17 04:00 Pulse Ox 99 08/22/17 07:25 Intake & Output 08/21/17 08/22/17 08/22/17 17:59 06:59 18:59 Intake Total Output Total Balance Weight (lbs) Intake: Oral Output: Drainage Sacrum Urine Active Medications: Current Medications Acetaminophen (Tylenol) 650 mg PO Q4HR PRN PRN Reason: Pain (Mild) Stop: 10/13/17 14:46 Last Admin: 08/17/17 20:45 Dose: 650 mg Albuterol Sulfate (Albuterol 2.5mg/3ml Neb Ud) 2.5 mg HHN Q2HRT PRN PRN Reason: Shortness of Breath or Wheeze Stop: 10/13/17 14:49 Last Admin: 08/22/17 07:22 Dose: 2.5 mg Baclofen (Lioresal) 5 mg PO TID [facility] Stop: 10/13/17 20:59 Last Admin: 08/22/17 09:57 Dose: Not Given [place] Oil/[place] Balsam/Trypsin (Venelex) 1 appl TP DAILY [facility] Stop: 10/17/17 13:59 Last Admin: 08/22/17 09:58 Dose: Not Given Dextrose/Sodium Chloride (D5-0.9%Ns) 1,000 mls @ 80 mls/hr IV .[id number] [facility] Stop: 10/13/17 14:59 Last Admin: 08/22/17 01:41 Dose: 80 mls/hr Ceftriaxone Sodium 2 gm/ (Sodium Chloride) 50 mls @ 100 mls/hr IV Q24HR [facility] Stop: 10/18/17 12:44 Last Admin: 08/21/17 12:46 Dose: 100 mls/hr Ipratropium [place] (Atrovent Neb 0.5mg/2.5ml) 0.5 mg IH Q2HRT PRN PRN Reason: Shortness of Breath or Wheeze Stop: 10/13/17 14:49 Last Admin: 08/22/17 07:22 Dose: 0.5 mg Midodrine (Proamatine) 10 mg PO TID [facility] Stop: 10/16/17 13:59 Last Admin: 08/22/17 09:58 Dose: Not Given Morphine Sulfate (Morphine) 1 mg IVP Q4H PRN PRN Reason: Pain (Severe) Stop: 10/13/17 14:49 Ondansetron HCl (Zofran) 4 mg IV Q8H PRN PRN Reason: Nausea / Vomiting Stop: 10/13/17 14:49 Zinc Sulfate (Zinc Sulfate) 220 mg PO DAILY [facility] Stop: 10/14/17 08:59 Last Admin: 08/22/17 09:59 Dose: Not Given - Procedures Procedures: Procedures Procedure Code Date CYSTOSCOPY & URETER CATHETER 62008 08/14/17 EXTIRPATION OF MATTER FROM BLADDER, ENDO [id number] 08/14/17 INSERTION OF OTHER DEVICE INTO BLADDER, ENDO [id number] 08/14/17 Nutritional Asmnt/Malnutr-PDOC - Dietary Evaluation Malnutrition Findings (Please click <Entered> for more info): Nutritional Asmnt/Malnutrition Start: 08/16/17 18: 05 Text: Status: Complete Freq: Document 08/16/17 18:05 LCALONDRAG (Rec: 08/16/17 18:17 [email or web address]) Nutritional Asmnt/Malnutrition Patient General Information Nutritional Screening High Risk Diagnosis hematuria, sepsis Pertinent Medical Hx/Surgical Hx multiple sclerosis, decubitus ulceration, malnutrition Subjective Information Pt is non verbal noted. Spoke with nurse, nurse reported pt eats well, consumed 80% of breakfast and lunch today. Per MD note, pt hadcystoscopy on 08/15. Current Diet Order/ Nutrition Support pureed Pertinent Medications D5-0.9%nx, zinc Pertinent Labs 08/16 Na 141, K 3.6, Cl 114, BUN 27, Glucose 114 08/14 GLucose 145, POC 143 Nutritional Hx/Data Height 1.65 m Height (Calculated Centimeters) 165.1 Current Weight (lbs) 71.214 kg Weight (Calculated Kilograms) 71.2 Weight (Calculated Grams) 95200.0 [place] Body Weight 136 Body Mass Index (BMI) 26.1 Weight Status Overweight GI Symptoms GI Symptoms None Last BM 1 Difficult in: None Skin Integrity/Comment: decubitus ulceration to cyccyx Current %PO Good (75-100%) Estimated Nutritional Goals BEE in Kcals: Using Current wt Calories/Kcals/Kg 25-30 Kcals Calculated 6161-8315 Protein: Using Current wt Protein g/k-1.2 Protein Calculated 71-85 Fluid: ml 1775-2130ml (1ml/kcal) Nutritional Problem 1. Problem Problem increased nutrition needs ( protein0 Etiology increased metabolic demand for wound healing Signs/Symptoms: decubitus ulceration Intervention/Recommendation Comments 1. Continue with current diet as ordered. Recommend vitamin C to help with wound healing 2. Monitor PO intake, wt, labs and skin integrity 3. F/U as moderate risk in 3-5 days, 08/19-08/21 Expected Outcomes/Goals Expected Outcomes/Goals 1. PO intake to meet at least 75% of nutritional needs. 2. Wt stability, skin to remain intact, labs to approach WNL.
[2017-08-22] MEDS: cefTRIAXone 2 GM in Sodium Chloride 0.9% 50 ML IV SCH (12:14)
--- NOTE | 2017-08-22 16:10 | Internal Medicine Prog Note ---
Internal Medicine Subjective - Subjective Service Date: 08/22/17 (patient had a episode of hypotension yesterday and was given 500ml bolus, bp improved) Patient is:: asleep, interactive, eyes closed Patient Complaints of:: pain with urination Per staff patient has:: noncompliant, confused Internal Medicine Objective - Results Result Diagrams: 08/22/17 05:25 08/22/17 05:25 Recent Labs: Laboratory Last Values WBC 14.7 Th/cmm (4.8-10.8) H 08/22/17 05:25 RBC 3.68 Mil/cmm (4.30-5.70) L 08/22/17 05:25 Hgb 10.8 gm/dL (12-16) L 08/22/17 05:25 Hct 31.9 % (41.0-60) L 08/22/17 05:25 MCV 86.9 fl (80-99) 08/22/17 05:25 MCH 29.3 pg (26.0-30.0) 08/22/17 05:25 MCHC Differential 33.8 pg (28.0-36.0) 08/22/17 05:25 RDW 14.1 % (11.5-20.0) 08/22/17 05:25 Plt Count 546 Th/cmm (150-400) H 08/22/17 05:25 MPV 7.1 fl 08/22/17 05:25 Neutrophils % 64.7 % (40.0-80.0) 08/21/17 07:43 Band Neutrophils % 2 % (0-10) 08/22/17 05:25 Lymphocytes % 25.3 % (20.0-50.0) 08/21/17 07:43 Monocytes % 9.2 % (2.0-10.0) 08/21/17 07:43 Eosinophils % 0.7 % (0.0-5.0) 08/21/17 07:43 Basophils % 0.1 % (0.0-2.0) 08/21/17 07:43 Neutrophils (Manual) 76 % (40-80) 08/22/17 05:25 Lymphocytes 14 % (20-50) L 08/22/17 05:25 Monocytes 8 % (2-10) 08/22/17 05:25 Basophils 1 % (0-3) 08/14/17 11:23 Platelet Estimate INCREASED PLATELETS (NORMAL) 08/22/17 05:25 PT 12.3 SECONDS (9.5-11.5) H 08/14/17 15:28 INR 1.17 (0.5-1.4) 08/14/17 15:28 PTT (Actin FS) 33.8 SECONDS (26.0-38.0) 08/14/17 15:28 Sodium 140 mEq/L (136-145) 08/22/17 05:25 Potassium 3.3 mEq/L (3.5-5.1) L 08/22/17 05:25 Chloride 108 mEq/L (98-107) H 08/22/17 05:25 Carbon Dioxide 23.8 mEq/L (21.0-31.0) 08/22/17 05:25 Anion Gap 11.5 (7.0-16.0) 08/22/17 05:25 BUN 10 mg/dL (7-25) 08/22/17 05:25 Creatinine 0.5 mg/dL (0.7-1.3) L 08/22/17 05:25 Est GFR ( Amer) > 60.0 ml/min (>90) 08/22/17 05:25 Est GFR (Non-Af Amer) > 60.0 ml/min 08/22/17 05:25 BUN/Creatinine Ratio 20.0 08/22/17 05:25 Glucose 113 mg/dL (70-105) H 08/22/17 05:25 POC Glucose 100 MG/DL (70 - 105) 08/19/17 05:12 Whole Bld Lactic Acid 1.56 mmol/L (0.60-1.99) 08/14/17 11:23 Calcium 8.7 mg/dL (8.6-10.3) 08/22/17 05:25 Magnesium 1.5 mg/dL (1.9-2.7) L 08/20/17 04:57 Total Bilirubin 0.4 mg/dL (0.3-1.0) 08/16/17 05:35 AST 48 U/L (13-39) H 08/16/17 05:35 ALT 30 U/L (7-52) 08/16/17 05:35 Alkaline Phosphatase 87 U/L (34-104) 08/16/17 05:35 B-Natriuretic Peptide 26.4 pg/mL (5.0-100.0) 08/17/17 05:50 Total Protein 6.4 gm/dL (6.0-8.3) 08/16/17 05:35 Albumin 2.3 gm/dL (4.2-5.5) L 08/16/17 05:35 Globulin 4.1 gm/dL 08/16/17 05:35 Albumin/Globulin Ratio 0.6 (1.0-1.8) L 08/16/17 05:35 Urine Source RANDOM 08/14/17 12:30 Urine Color RED 08/14/17 12:30 Urine Clarity BLOODY (CLEAR) 08/14/17 12:30 Urine pH 8.0 (4.6 - 8.0) 08/14/17 12:30 Ur Specific [place] 1.020 (1.005-1.030) 08/14/17 12:30 Urine Protein >=300 mg/dL (NEGATIVE) 08/14/17 12:30 Urine Glucose (UA) 100 mg/dL (NEGATIVE) H 08/14/17 12:30 Urine Ketones NEGATIVE mg/dL (NEGATIVE) 08/14/17 12:30 Urine Blood LARGE (NEGATIVE) H 08/14/17 12:30 Urine Nitrate POSITIVE (NEGATIVE) H 08/14/17 12:30 Urine Bilirubin SMALL (NEGATIVE) H 08/14/17 12:30 Urine Urobilinogen 1.0 E.U./dL (0.2 - 1.0) 08/14/17 12:30 Ur Leukocyte Esterase TRACE (NEGATIVE) H 08/14/17 12:30 Urine RBC >100 /hpf (0-5) H 08/14/17 12:30 Urine WBC /hpf (0-5) 08/14/17 12:30 Ur Epithelial Cells /lpf (FEW) 08/14/17 12:30 Urine Bacteria /hpf (NONE SEEN) 08/14/17 12:30 - Physical Exam Vitals and I&O: Vital Signs Temp 99.1 F 08/22/17 04:00 Pulse 89 08/22/17 15:07 Resp 20 08/22/17 15:07 BP 141/58 08/22/17 04:00 Pulse Ox 97 08/22/17 15:07 Intake & Output 08/21/17 08/22/17 08/22/17 17:59 06:59 18:59 Intake Total Output Total Balance Weight (lbs) Intake: Intake, IV Amount [id number] 2 gm In Sodium Chloride 0.9% 50 ml @ 100 mls/hr IV Q24HR [facility] Rx#:[id number] Oral Output: Drainage Sacrum Urine Other: Stool Characteristics Liquid Brown Active Medications: Current Medications Acetaminophen (Tylenol) 650 mg PO Q4HR PRN PRN Reason: Pain (Mild) Stop: 10/13/17 14:46 Last Admin: 08/17/17 20:45 Dose: 650 mg Albuterol Sulfate (Albuterol 2.5mg/3ml Neb Ud) 2.5 mg HHN Q2HRT PRN PRN Reason: Shortness of Breath or Wheeze Stop: 10/13/17 14:49 Last Admin: 08/22/17 15:05 Dose: 2.5 mg Baclofen (Lioresal) 5 mg PO TID [facility] Stop: 10/13/17 20:59 Last Admin: 08/22/17 15:07 Dose: Not Given [place] Oil/[place] Balsam/Trypsin (Venelex) 1 appl TP DAILY [facility] Stop: 10/17/17 13:59 Last Admin: 08/22/17 09:58 Dose: Not Given Dextrose/Sodium Chloride (D5-0.9%Ns) 1,000 mls @ 80 mls/hr IV .[id number] [facility] Stop: 10/13/17 14:59 Last Admin: 08/22/17 01:41 Dose: 80 mls/hr Ceftriaxone Sodium 2 gm/ (Sodium Chloride) 50 mls @ 100 mls/hr IV Q24HR [facility] Stop: 10/18/17 12:44 Last Admin: 08/22/17 12:14 Dose: 100 mls/hr Ipratropium [place] (Atrovent Neb 0.5mg/2.5ml) 0.5 mg IH Q2HRT PRN PRN Reason: Shortness of Breath or Wheeze Stop: 10/13/17 14:49 Last Admin: 08/22/17 15:05 Dose: 0.5 mg Midodrine (Proamatine) 10 mg PO TID [facility] Stop: 10/16/17 13:59 Last Admin: 08/22/17 15:07 Dose: Not Given Morphine Sulfate (Morphine) 1 mg IVP Q4H PRN PRN Reason: Pain (Severe) Stop: 10/13/17 14:49 Ondansetron HCl (Zofran) 4 mg IV Q8H PRN PRN Reason: Nausea / Vomiting Stop: 10/13/17 14:49 Zinc Sulfate (Zinc Sulfate) 220 mg PO DAILY [facility] Stop: 10/14/17 08:59 Last Admin: 08/22/17 09:59 Dose: Not Given General: demented HEENT: NC/AT, PERRLA, thinning hair, poor dentition Neck: Supple, deformity Lungs: CTAB Cardiovascular: RRR, Normal S1, Normal S2, without murmur Abdomen: soft, non-tender, globular, non-distended Extremities: excoriation, ecchymosis, contracture Neurological: no change - Procedures Procedures: Procedures Procedure Code Date CYSTOSCOPY & URETER CATHETER 58612 08/14/17 EXTIRPATION OF MATTER FROM BLADDER, ENDO [id number] 08/14/17 INSERTION OF OTHER DEVICE INTO BLADDER, ENDO [id number] 08/14/17 Internal Medicine Assmt/Plan - Assessment Assessment: urine culture +proteus mirabilis Sepsis bacteremia Leukocytosis. UTI. Decubitus ulcer. Schizoaffective disorder. Moderate protein-calorie malnutrition. - Plan Plan: continue ivabx ivf for hydration cbc/bmp in am continue current plan of care Nutritional Asmnt/Malnutr-PDOC - Dietary Evaluation Malnutrition Findings (Please click <Entered> for more info): Nutritional Asmnt/Malnutrition Start: 08/16/17 18: 05 Text: Status: Complete Freq: Document 08/16/17 18:05 ALONDRA (Rec: 08/16/17 18:17 [facility]-[email or web address]) Nutritional Asmnt/Malnutrition Patient General Information Nutritional Screening High Risk Diagnosis hematuria, sepsis Pertinent Medical Hx/Surgical Hx multiple sclerosis, decubitus ulceration, malnutrition Subjective Information Pt is non verbal noted. Spoke with nurse, nurse reported pt eats well, consumed 80% of breakfast and lunch today. Per MD note, pt hadcystoscopy on 08/15. Current Diet Order/ Nutrition Support pureed Pertinent Medications D5-0.9%nx, zinc Pertinent Labs 08/16 Na 141, K 3.6, Cl 114, BUN 27, Glucose 114 08/14 GLucose 145, POC 143 Nutritional Hx/Data Height 5 ft 5 in Height (Calculated Centimeters) 165.1 Current Weight (lbs) 157 lb Weight (Calculated Kilograms) 71.2 Weight (Calculated Grams) 45358.0 [place] Body Weight 136 Body Mass Index (BMI) 26.1 Weight Status Overweight GI Symptoms GI Symptoms None Last BM 1 Difficult in: None Skin Integrity/Comment: decubitus ulceration to cyccyx Current %PO Good (75-100%) Estimated Nutritional Goals BEE in Kcals: Using Current wt Calories/Kcals/Kg 25-30 Kcals Calculated 1701-0280 Protein: Using Current wt Protein g/k-1.2 Protein Calculated 71-85 Fluid: ml 1775-2130ml (1ml/kcal) Nutritional Problem 1. Problem Problem increased nutrition needs ( protein0 Etiology increased metabolic demand for wound healing Signs/Symptoms: decubitus ulceration Intervention/Recommendation Comments 1. Continue with current diet as ordered. Recommend vitamin C to help with wound healing 2. Monitor PO intake, wt, labs and skin integrity 3. F/U as moderate risk in 3-5 days, 08/19-08/21 Expected Outcomes/Goals Expected Outcomes/Goals 1. PO intake to meet at least 75% of nutritional needs. 2. Wt stability, skin to remain intact, labs to approach WNL.
[2017-08-22] MEDS ORDERED: Potassium Chloride 40 MEQ, Lidocaine 1% 20mL Vial 25 MG in Sodium Chloride 0.9% 250 ML IV ONE (16:46)
[2017-08-23] MEDS: Multivitamin w/ Minerals Tab PO SCH (09:10)
[2017-08-23] MEDS: Venelex 60gm Tube TP SCH (09:10)
--- NOTE | 2017-08-23 13:13 | Pathology Report ---
[id number] Collection date: 08/19/2017 Surgeon: Dr. Randy Carrera Specimen Description: Sacral ulcer debridement Gross Description: Received in formal is a 3.5 x 1.0 x 0.5 cm portion of necrotic grossman-thomas soft tissue. A accounting representative section is submitted in one cassette. Microscopic Description: The histologic sections show ulcerated and degenerated fibroconnective tissue with suppurative inflammation consisting of large collections of neutrophils with a necrotic background. Diagnosis: Necrotic soft tissue consistent with debridement of sacral decubitus ulcer. [facility]# [id number]
[2017-08-23] MEDS: cefTRIAXone 2 GM in Sodium Chloride 0.9% 50 ML IV SCH (13:29)
--- NOTE | 2017-08-23 14:11 | Internal Medicine Prog Note ---
Internal Medicine Subjective - Subjective Service Date: 08/23/17 (patient did not pass swallow eval) Patient seen and examined:: with staff Patient is:: interactive, eyes closed Patient Complaints of:: pain with urination Per staff patient has:: noncompliant, confused Internal Medicine Objective - Results Result Diagrams: 08/22/17 05:25 08/22/17 05:25 Recent Labs: Laboratory Last Values WBC 14.7 Th/cmm (4.8-10.8) H 08/22/17 05:25 RBC 3.68 Mil/cmm (4.30-5.70) L 08/22/17 05:25 Hgb 10.8 gm/dL (12-16) L 08/22/17 05:25 Hct 31.9 % (41.0-60) L 08/22/17 05:25 MCV 86.9 fl (80-99) 08/22/17 05:25 MCH 29.3 pg (26.0-30.0) 08/22/17 05:25 MCHC Differential 33.8 pg (28.0-36.0) 08/22/17 05:25 RDW 14.1 % (11.5-20.0) 08/22/17 05:25 Plt Count 546 Th/cmm (150-400) H 08/22/17 05:25 MPV 7.1 fl 08/22/17 05:25 Neutrophils % 64.7 % (40.0-80.0) 08/21/17 07:43 Band Neutrophils % 2 % (0-10) 08/22/17 05:25 Lymphocytes % 25.3 % (20.0-50.0) 08/21/17 07:43 Monocytes % 9.2 % (2.0-10.0) 08/21/17 07:43 Eosinophils % 0.7 % (0.0-5.0) 08/21/17 07:43 Basophils % 0.1 % (0.0-2.0) 08/21/17 07:43 Neutrophils (Manual) 76 % (40-80) 08/22/17 05:25 Lymphocytes 14 % (20-50) L 08/22/17 05:25 Monocytes 8 % (2-10) 08/22/17 05:25 Basophils 1 % (0-3) 08/14/17 11:23 Platelet Estimate INCREASED PLATELETS (NORMAL) 08/22/17 05:25 PT 12.3 SECONDS (9.5-11.5) H 08/14/17 15:28 INR 1.17 (0.5-1.4) 08/14/17 15:28 PTT (Actin FS) 33.8 SECONDS (26.0-38.0) 08/14/17 15:28 Sodium 140 mEq/L (136-145) 08/22/17 05:25 Potassium 3.3 mEq/L (3.5-5.1) L 08/22/17 05:25 Chloride 108 mEq/L (98-107) H 08/22/17 05:25 Carbon Dioxide 23.8 mEq/L (21.0-31.0) 08/22/17 05:25 Anion Gap 11.5 (7.0-16.0) 08/22/17 05:25 BUN 10 mg/dL (7-25) 08/22/17 05:25 Creatinine 0.5 mg/dL (0.7-1.3) L 08/22/17 05:25 Est GFR ( Amer) > 60.0 ml/min (>90) 08/22/17 05:25 Est GFR (Non-Af Amer) > 60.0 ml/min 08/22/17 05:25 BUN/Creatinine Ratio 20.0 08/22/17 05:25 Glucose 113 mg/dL (70-105) H 08/22/17 05:25 POC Glucose 100 MG/DL (70 - 105) 08/19/17 05:12 Whole Bld Lactic Acid 1.56 mmol/L (0.60-1.99) 08/14/17 11:23 Calcium 8.7 mg/dL (8.6-10.3) 08/22/17 05:25 Magnesium 1.5 mg/dL (1.9-2.7) L 08/20/17 04:57 Total Bilirubin 0.4 mg/dL (0.3-1.0) 08/16/17 05:35 AST 48 U/L (13-39) H 08/16/17 05:35 ALT 30 U/L (7-52) 08/16/17 05:35 Alkaline Phosphatase 87 U/L (34-104) 08/16/17 05:35 B-Natriuretic Peptide 26.4 pg/mL (5.0-100.0) 08/17/17 05:50 Total Protein 6.4 gm/dL (6.0-8.3) 08/16/17 05:35 Albumin 2.3 gm/dL (4.2-5.5) L 08/16/17 05:35 Globulin 4.1 gm/dL 08/16/17 05:35 Albumin/Globulin Ratio 0.6 (1.0-1.8) L 08/16/17 05:35 Urine Source RANDOM 08/14/17 12:30 Urine Color RED 08/14/17 12:30 Urine Clarity BLOODY (CLEAR) 08/14/17 12:30 Urine pH 8.0 (4.6 - 8.0) 08/14/17 12:30 Ur Specific [place] 1.020 (1.005-1.030) 08/14/17 12:30 Urine Protein >=300 mg/dL (NEGATIVE) 08/14/17 12:30 Urine Glucose (UA) 100 mg/dL (NEGATIVE) H 08/14/17 12:30 Urine Ketones NEGATIVE mg/dL (NEGATIVE) 08/14/17 12:30 Urine Blood LARGE (NEGATIVE) H 08/14/17 12:30 Urine Nitrate POSITIVE (NEGATIVE) H 08/14/17 12:30 Urine Bilirubin SMALL (NEGATIVE) H 08/14/17 12:30 Urine Urobilinogen 1.0 E.U./dL (0.2 - 1.0) 08/14/17 12:30 Ur Leukocyte Esterase TRACE (NEGATIVE) H 08/14/17 12:30 Urine RBC >100 /hpf (0-5) H 08/14/17 12:30 Urine WBC /hpf (0-5) 08/14/17 12:30 Ur Epithelial Cells /lpf (FEW) 08/14/17 12:30 Urine Bacteria /hpf (NONE SEEN) 08/14/17 12:30 - Physical Exam Vitals and I&O: Vital Signs Temp 97.7 F 08/23/17 12:00 Pulse 90 08/23/17 12:00 Resp 18 08/23/17 12:00 BP 126/77 08/23/17 11:58 Pulse Ox 99 08/23/17 12:00 Intake & Output 08/22/17 08/23/17 08/23/17 18:59 06:59 18:59 Intake Total 50 Output Total 731 Balance 50 -731 Weight (lbs) 194 lb 12.8 oz Intake: Intake, IV Amount 50 cefTRIAXone 2 gm In 50 Sodium Chloride 0.9% 50 ml @ 100 mls/hr IV Q24HR [facility] Rx#:[id number] Output: Gastric Drainage 50 Drainage 30 Sacrum 30 Urine 650 Stool 1 Other: Stool Characteristics Liquid Liquid Liquid Brown Brown Brown Active Medications: Current Medications Acetaminophen (Tylenol) 650 mg PO Q4HR PRN PRN Reason: Pain (Mild) Stop: 10/13/17 14:46 Last Admin: 08/17/17 20:45 Dose: 650 mg Albuterol Sulfate (Albuterol 2.5mg/3ml Neb Ud) 2.5 mg HHN Q2HRT PRN PRN Reason: Shortness of Breath or Wheeze Stop: 10/13/17 14:49 Last Admin: 08/22/17 15:05 Dose: 2.5 mg Baclofen (Lioresal) 5 mg PO TID [facility] Stop: 10/13/17 20:59 Last Admin: 08/23/17 13:18 Dose: Not Given [place] Oil/[place] Balsam/Trypsin (Venelex) 1 appl TP DAILY [facility] Stop: 10/17/17 13:59 Last Admin: 08/23/17 09:10 Dose: Not Given Dextrose/Sodium Chloride (D5-0.9%Ns) 1,000 mls @ 80 mls/hr IV .[id number] [facility] Stop: 10/13/17 14:59 Last Admin: 08/22/17 01:41 Dose: 80 mls/hr Ceftriaxone Sodium 2 gm/ (Sodium Chloride) 50 mls @ 100 mls/hr IV Q24HR [facility] Stop: 10/18/17 12:44 Last Admin: 08/23/17 13:29 Dose: 100 mls/hr Ipratropium [place] (Atrovent Neb 0.5mg/2.5ml) 0.5 mg IH Q2HRT PRN PRN Reason: Shortness of Breath or Wheeze Stop: 10/13/17 14:49 Last Admin: 08/22/17 15:05 Dose: 0.5 mg Midodrine (Proamatine) 10 mg PO TID [facility] Stop: 10/16/17 13:59 Last Admin: 08/23/17 13:20 Dose: Not Given Morphine Sulfate (Morphine) 1 mg IVP Q4H PRN PRN Reason: Pain (Severe) Stop: 10/13/17 14:49 Ondansetron HCl (Zofran) 4 mg IV Q8H PRN PRN Reason: Nausea / Vomiting Stop: 10/13/17 14:49 Zinc Sulfate (Zinc Sulfate) 220 mg PO DAILY [facility] Stop: 10/14/17 08:59 Last Admin: 08/23/17 09:10 Dose: Not Given General: demented HEENT: NC/AT, PERRLA, thinning hair, poor dentition Neck: Supple, deformity Lungs: CTAB Cardiovascular: RRR, Normal S1, Normal S2, without murmur Abdomen: soft, non-tender, globular, non-distended Extremities: excoriation, ecchymosis, contracture Neurological: no change - Procedures Procedures: Procedures Procedure Code Date BYPASS DESCENDING COLON TO CUTANEOUS, OPEN APPROACH [id number] 08/14/17 COLOSTOMY 35088 08/14/17 CYSTOSCOPY & URETER CATHETER 26325 08/14/17 CECILY BONE 20 SQ CM/< 53053 08/14/17 EXCISION OF SACRUM, OPEN APPROACH [id number] 08/14/17 EXTIRPATION OF MATTER FROM BLADDER, ENDO [id number] 08/14/17 INSERTION OF OTHER DEVICE INTO BLADDER, ENDO [id number] 08/14/17 Internal Medicine Assmt/Plan - Assessment Assessment: urine culture +proteus mirabilis dysphagia Sepsis bacteremia Leukocytosis. UTI. Decubitus ulcer. Schizoaffective disorder. Moderate protein-calorie malnutrition. - Plan Plan: may need peg? continue ivabx ivf for hydration cbc/bmp in am continue current plan of care Nutritional Asmnt/Malnutr-PDOC - Dietary Evaluation Malnutrition Findings (Please click <Entered> for more info): Nutritional Asmnt/Malnutrition Start: 08/16/17 18: 05 Text: Status: Complete Freq: Document 08/16/17 18:05 ALONDRA (Rec: 08/16/17 18:17 ALONDRA [id number]) Nutritional Asmnt/Malnutrition Patient General Information Nutritional Screening High Risk Diagnosis hematuria, sepsis Pertinent Medical Hx/Surgical Hx multiple sclerosis, decubitus ulceration, malnutrition Subjective Information Pt is non verbal noted. Spoke with nurse, nurse reported pt eats well, consumed 80% of breakfast and lunch today. Per MD note, pt hadcystoscopy on 08/15. Current Diet Order/ Nutrition Support pureed Pertinent Medications D5-0.9%nx, zinc Pertinent Labs 08/16 Na 141, K 3.6, Cl 114, BUN 27, Glucose 114 08/14 GLucose 145, POC 143 Nutritional Hx/Data Height 5 ft 5 in Height (Calculated Centimeters) 165.1 Current Weight (lbs) 157 lb Weight (Calculated Kilograms) 71.2 Weight (Calculated Grams) 46369.0 [place] Body Weight 136 Body Mass Index (BMI) 26.1 Weight Status Overweight GI Symptoms GI Symptoms None Last BM 1 Difficult in: None Skin Integrity/Comment: decubitus ulceration to cyccyx Current %PO Good (75-100%) Estimated Nutritional Goals BEE in Kcals: Using Current wt Calories/Kcals/Kg 25-30 Kcals Calculated 3845-0030 Protein: Using Current wt Protein g/k-1.2 Protein Calculated 71-85 Fluid: ml 1775-2130ml (1ml/kcal) Nutritional Problem 1. Problem Problem increased nutrition needs ( protein0 Etiology increased metabolic demand for wound healing Signs/Symptoms: decubitus ulceration Intervention/Recommendation Comments 1. Continue with current diet as ordered. Recommend vitamin C to help with wound healing 2. Monitor PO intake, wt, labs and skin integrity 3. F/U as moderate risk in 3-5 days, 08/19-08/21 Expected Outcomes/Goals Expected Outcomes/Goals 1. PO intake to meet at least 75% of nutritional needs. 2. Wt stability, skin to remain intact, labs to approach WNL.
--- NOTE | 2017-08-24 00:54 | Consultation ---
DATE OF CONSULTATION: 08/23/2017 INPATIENT GASTROINTESTINAL CONSULTATION REFERRING PHYSICIAN: Dr. Alberts. REASON FOR CONSULTATION: Malnutrition and failure to thrive. HISTORY OF PRESENT ILLNESS: A 57-year-old male, who was admitted to the hospital with hematuria. The patient is being worked up and was noted to have some malnutrition, so we are asked to see the patient for this reason. The patient is a poor historian, unable to give any meaningful history. PAST MEDICAL HISTORY: Multiple sclerosis, decubitus ulcer, malnutrition, and hematuria. PAST SURGICAL HISTORY: Unknown. FAMILY HISTORY: Noncontributory. SOCIAL HISTORY: Resident of [facility]. ALLERGIES: PENICILLIN. CURRENT MEDICATIONS: Tylenol, albuterol, baclofen, ceftriaxone, Atrovent, midodrine, morphine, Zofran, and zinc. REVIEW OF SYSTEMS: Ten-point review of system was unobtainable. PHYSICAL EXAMINATION: VITAL SIGNS: Temperature 98.5, breathing 18, pulse of 96, blood pressure 117/71, and satting 100%. GENERAL: In no apparent distress. EYES: Anicteric. Normal conjunctivae. HEENT: Normocephalic and atraumatic. Moist mucous membranes. NECK: Soft and supple. CHEST: Clear. No effort. CARDIOVASCULAR: Regular rate and rhythm. ABDOMEN: Soft, nontender, and nondistended with a midline incision wound. EXTREMITIES: Revealed no cyanosis. PSYCHOLOGICAL: Awake. LABORATORY DATA: Labs show white count 14.7, hemoglobin 10.8, and platelets of 546. Creatinine 0.5. IMPRESSION: A 57-year-old male with diagnosis of malnutrition per hospitalist. At this point, we will encourage the patient to take a normal diet. If he becomes unable to tolerate a p.o. diet in the future, a feeding tube may be considered. Alternate options in the meantime could also include NG tube and/or TPN. PLAN: 1. Continue encourage p.o. diet if possible. 2. Would reserve PEG tube should the patient require one. 3. Consider use of NG tube versus TPN if the patient needs other forms of nutrition on a short-term basis. Thank you for allowing me to participate. Please call me if you have any questions. [facility]# [phone]
== END 2017-08-23 20:10 | DRG 710 ==
LOC: ER 10:39 → TELE 13:58
PROVIDERS: ADMIT Internal Medicine; ATTEND Internal Medicine
PROC: 0TCB8ZZ Extirpation of Matter from Bladder, Via Natural or Artificial Opening Endoscopic (ICD-10-PCS; principal; 2017-08-15)
PROC: 0T9B80Z Drainage of Bladder with Drainage Device, Via Natural or Artificial Opening Endoscopic (ICD-10-PCS; 2017-08-15)
PROC: 0QB10ZZ Excision of Sacrum, Open Approach (ICD-10-PCS; 2017-08-19)
PROC: 0D1M0Z4 Bypass Descending Colon to Cutaneous, Open Approach (ICD-10-PCS; 2017-08-19)
DX: A41.9 Sepsis, unspecified organism (principal); G82.50 Quadriplegia, unspecified; L89.154 Pressure ulcer of sacral region, stage 4; N17.9 Acute kidney failure, unspecified; E44.0 Moderate protein-calorie malnutrition; S37.29XA Other injury of bladder, initial encounter; F25.9 Schizoaffective disorder, unspecified; G35 Multiple sclerosis; N39.0 Urinary tract infection, site not specified; R31.0 Gross hematuria; Z74.01 Bed confinement status; X58.XXXA Exposure to other specified factors, initial encounter; Z93.1 Gastrostomy status; Z68.32 Body mass index [BMI] 32.0-32.9, adult
CPT/HCPCS: 36415-UA; 71045-TC; 76770-TC; 80048-TC; 80053-TC; 81001-TC; 82948-90; 83605; 83735-TC; 83880-TC; 85007-TC; 85025-TC; 85027-TC; 85610-TC; 87086-90; 90779; 93005; 94760; 96372; A4217; J0696; J1170; J1956; J2001; J2185; J2405; J2704; J2710; J3010; J3475; J3480; J7030; J7040; J7042; J7613; P9046; V2790; X3401; X6258; Z7610

== ENCOUNTER 2017-09-28 17:06 | Inpatient (IN) | payer MEDICAID ==
[2017-09-28] MEDS ORDERED: Sodium Chloride 0.9% 1,000 ML IV ONE (17:19)
--- NOTE | 2017-09-28 17:27 | ED Physician Chart ---
ED Chief Complaint/HPI - Patient Information Date Seen:: 09/28/17 Time Seen:: 17:20 Chief Complaint:: Abdominal Pain History of Present Illness:: pt presents with a prolapsed colostomy; pt to have Surgery to repair this; no report of trauma, H/As, neck pain, C/P, cough, SOB, A/N/V/D/c, fever, chills, or urinary s/s Allergies:: Allergies Allergy/AdvReac Type Severity Reaction Status Date / Time Penicillins [PCN] AdvReac Verified 08/14/17 10:47 Historian:: Patient, EMS Review:: Nurse's Note Reviewed, Old Chart Reviewed, EMS run form Reviewed ED Review of Systems - Review of Systems General/Constitutional: No fever, No chills, No weight loss, No weakness, No diaphoresis, No edema, No loss of appetite Skin: No skin lesions, No rash, No bruising Head: No headache, No light-headedness Eyes: No loss of vision, No pain, No diplopia ENT: No earache, No nasal drainage, No sore throat, No tinnitus Neck: No neck pain, No swelling, No thyromegaly, No stiffness, No mass noted Cardio Vascular: No chest pain, No palpitations, No PND, No orthopnea, No edema Pulmonary: No SOB, No cough, No sputum, No wheezing GI: Nausea, Vomiting, Diarrhea, Pain, No melena, No hematochezia, No constipation, No hematemesis G/U: No dysuria, No frequency, No hematuria, No nacturia Musculoskeletal: No bone or joint pain, No back pain, No muscle pain Endocrine: No polyuria, No polydipsia Psychiatric: No prior psych history, No depression, No anxiety, No suicidal ideation, No homicidal ideation, No auditory hallucination, No visual hallucination Hematopoietic: No bruising, No lymphadenopathy Allergic/Immuno: No urticaria, No angioedema Neurological: No syncope, Focal symptoms, Weakness, Paresthesia, No headache, No seizure, No dizziness, No confusion, No vertigo ED Past Medical History - Past Medical History Obtainable: Yes Past Medical History: HTN, CVA/TIA, PUD/GERD, Arthritis, Other (Anemia; Multiple Sclerosis; Decubitus Ulcer) Family History: Diabetes Melitus, HTN Social History: Non Smoker, No Alcohol, No Drug Use, Single, Care Facility Surgical History: PEG/GTube (Colostomy), other (Colostomy) Psychiatricy History: None Medication: Reviewed Family Medical History - Family Member Mother History Unknown: Yes Ethnicity: Unknown Living Status: Unknown ED Physical Exam - Physical Examination General/Constitutional: Awake, Well-developed, well-nourished, Alert, No distress, GCS 15, Non-toxic appearing, Ambulatory Head: Atraumatic Eyes: Lids, conjuctiva normal, PERRL, EOMI Skin: Nl inspection, No rash, No skin lesions, No ecchymosis, Well hydrated, No lymphadenopathy Other Skin comments:: + Decubitus Ulcer ENMT: External ears, nose nl, TM canals nl, Nasal exam nl, Lips, teeth, gums nl , Oropharynx nl, Tonsils nl Neck: Nontender, Full ROM w/o pain, No JVD, No nuchal rigidity, No bruit, No mass, No stridor Respiratory: Nl effort/Exclusion, Clear to Auscultation, No Wheeze/Rhonchi/Rales Cardio Vascular: RRR, No murmur, gallop, rubs, NL S1 S2, Carotid/Femoral/Distal pulses equal bilaterally GI: No tenderness/rebounding/guarding, No organomegaly, No hernia, Normal BS's, Nondistended, No mass/bruits, No McBurney tenderness, Rectum exam nl Other GI comments:: + Prolapsed Colostomy : No CVA tenderness Extremities: No tenderness or effusion, Full ROM, normal strength in all extremities, No edema, Normal digits & nails Neuro/Psych: Alert/oriented, DTR's symmetric, Normal sensory exam, Normal motor strength, Judgement/insight normal, Mood normal, Normal gait Other Neuro/Psych comments:: + Quadriplegia Misc: Normal back, No paraspinal tenderness ED Labs/Radiology/EKG Results - Lab Results Comments:: H/H: + Anemia; Na+: 134 ED Septic Shock - . Is Septic Shock (SBP<90, OR Lactate>4 mmol\L) present?: No ED Reassessment (Disposition) - Reassessment Reassessment Condition:: Improved - Diagnosis Diagnosis:: Colostomy Prolapse; Abdominal Pain; Hyponatremia; MS; Decubitus Ulcer - Aftercare/Follow up Instructions Aftercare/Follow-Up Instructions:: Counseled pt regarding lab results/diagnosis & need follow up, Counseled pt & family regarding lab results/diagnosis & need follow up - Patient Disposition Discharge/Transfer:: Acute Care w/in this hosp Accepting Physician:: Dr. Alberts Time Called:: 1899 Time Responded:: 19:00 Admitted to:: Med/Surg Spoke to:: Dr. Alberts Admitting Medical Physician:: Dr. Alberts Condition at Disposition:: Stable, Improved
[2017-09-28 17:44] LABS: MANUAL DIFF REQUIRED? YES
[2017-09-28 17:51] LABS: RED BLOOD COUNT 3.81 Mil/cmm (4.30-5.70)
[2017-09-28 17:56] LABS: AMYLASE SERUM 79 U/L (29-103); INR 1.04 (0.5-1.4); LIPASE 15 U/L (11-82); PROTHROMBIN TIME (TEST) 10.8 SECONDS (9.5-11.5)
[2017-09-28 17:58] LABS: HEMATOCRIT 31.7 % (41.0-60); HEMOGLOBIN 10.2 gm/dL (12-16); MEAN CELL VOLUME 83.2 fl (80-99); MEAN CORPUSCULAR HEMOGLOBIN 26.7 pg (26.0-30.0); MEAN CORPUSCULAR HGB CONC 32.1 pg (28.0-36.0); MEAN PLATELET VOLUME 7.3 fl; PLATELET COUNT 447 Th/cmm (150-400); RED CELL DISTRIBUTION WIDTH 16.3 % (11.5-20.0); WHITE BLOOD COUNT 8.6 Th/cmm (4.8-10.8)
[2017-09-28 17:59] LABS: ALB/GLOB RATIO 0.7 (1.0-1.8); ALKALINE PHOSPHATASE 74 U/L (34-104); ANION GAP 9.8 (7.0-16.0); BILIRUBIN,TOTAL 0.1 mg/dL (0.3-1.0); BUN - UREA NITROGEN 16 mg/dL (7-25); CALCIUM SERUM 9.4 mg/dL (8.6-10.3); CARBON DIOXIDE 31.2 mEq/L (21.0-31.0); CHLORIDE 97 mEq/L (98-107); CHOLESTEROL 133 mg/dL (<200); CREATININE - SERUM 0.4 mg/dL (0.7-1.3); CREATININE KINASE 17 U/L (30-223); GFR AFRICAN-AMERICAN > 60.0 ml/min (>90); GFR NON AFRICAN-AMERICAN > 60.0 ml/min; GLUCOSE 146 mg/dL (70-105); HDL -HIGH DENSITY LIPOPROTEIN 40 mg/dL (23-92); SGOT 31 U/L (13-39); SGPT/ALT 36 U/L (7-52); SODIUM SERUM 134 mEq/L (136-145); TOTAL PROTEIN,SERUM 7.6 gm/dL (6.0-8.3); TRIGLYCERIDES 169 mg/dL (<150)
[2017-09-28 18:36] LABS: BAND NEUTROPHILE 1 % (0-10); BASOPHIL 0 % (0-3); EOSINOPHIL 0 % (0-5); LYMPHOCYTE 10 % (20-50); MONOCYTE 3 % (2-10); MYELOCYTE 3 %; NEUTROPHILS 83 % (40-80); PLATELET ESTIMATE INCREASED PLATELETS (NORMAL); TOTAL CELLS COUNTED 100
[2017-09-28] MEDS ORDERED: Magnesium Hydroxide (MOM) 30 mL UDC GT PRN (19:32)
[2017-09-28] MEDS ORDERED: Albuterol/Ipratropium Neb 3 ML AERS HHN PRN (19:32)
[2017-09-28] MEDS ORDERED: Morphine Sulfate 4 mg/mL 1mL Syr IVP PRN (19:32)
[2017-09-28 19:37] LABS: INR 1.06 (0.5-1.4)
[2017-09-28] MEDS ORDERED: Levofloxacin 500mg/100mL 500 MG/100 ML BAG IV ONE (19:45)
[2017-09-28] MEDS ORDERED: D5-0.9%NS 1,000 ML IV SCH (19:45)
[2017-09-28 20:41] LABS: URINE MICROSCOPIC INDICATED? YES; URINE SOURCE CLEAN C
[2017-09-28 20:46] LABS: URINE BILIRUBIN NEGATIVE (NEGATIVE); URINE BLOOD TRACE (NEGATIVE); URINE GLUCOSE (UA) NEGATIVE (NEGATIVE); URINE KETONE NEGATIVE (NEGATIVE); URINE LEUKOCYTE ESTERASE NEGATIVE (NEGATIVE); URINE NITRATE NEGATIVE (NEGATIVE); URINE PROTEIN NEGATIVE (NEGATIVE); URINE UROBILINOGEN 0.2 E.U./dL (0.2 - 1.0)
[2017-09-28 20:52] LABS: URINE BACTERIA NONE SEEN /hpf (NONE SEEN); URINE CLARITY CLEAR (CLEAR); URINE COLOR YELLOW; URINE EPITHELIAL CELLS RARE /lpf (FEW); URINE WBC 0-2 /hpf (0-5)
[2017-09-28 20:53] LABS: URINE AMORPHOUS SEDIMENT MANY PHOSPHATES (NONE SEEN)
[2017-09-28] MEDS: Albuterol/Ipratropium Neb 3 ML AERS HHN SCH (22:55)
[2017-09-28] MEDS: metroNIDAZOLE 500mg/NS 100mL 500 MG/100 ML BAG IV SCH (23:37)
[2017-09-29] MEDS: Albuterol/Ipratropium Neb 3 ML AERS HHN SCH ×6 (02:35→22:16)
[2017-09-29 02:45] VITALS: BP 116/78
[2017-09-29] MEDS: metroNIDAZOLE 500mg/NS 100mL 500 MG/100 ML BAG IV SCH ×3 (05:12→21:31)
[2017-09-29 06:40] LABS: % EOSINOPHILS 0.1 % (0.0-5.0); % LYMPHOCYTES 19.5 % (20.0-50.0); % MONOCYTES 6.9 % (2.0-10.0); % NEUTROPHILS 72.5 % (40.0-80.0); BASOPHILE ABSOLUTE 0.1 Th/cumm (0-0.2); HEMATOCRIT 33.8 % (41.0-60); HEMOGLOBIN 10.7 gm/dL (12-16); LYMPHOCYTE ABSOLUTE 1.4 Th/cmm (1.5-3.0); MEAN CELL VOLUME 83.5 fl (80-99); MEAN CORPUSCULAR HEMOGLOBIN 26.5 pg (26.0-30.0); MEAN CORPUSCULAR HGB CONC 31.7 pg (28.0-36.0); MEAN PLATELET VOLUME 7.6 fl; MONOCYTE ABSOLUTE 0.5 Th/cmm (0.3-1.0); NEUTROPHILE ABSOLUTE 5.3 Th/cmm (1.8-8.0); PLATELET COUNT 434 Th/cmm (150-400); RED BLOOD COUNT 4.05 Mil/cmm (4.30-5.70); RED CELL DISTRIBUTION WIDTH 16.6 % (11.5-20.0); WHITE BLOOD COUNT 7.3 Th/cmm (4.8-10.8)
[2017-09-29 07:12] LABS: ALB/GLOB RATIO 0.6 (1.0-1.8); ALKALINE PHOSPHATASE 73 U/L (34-104); ANION GAP 11.5 (7.0-16.0); BILIRUBIN,TOTAL 0.2 mg/dL (0.3-1.0); BUN - UREA NITROGEN 14 mg/dL (7-25); CALCIUM SERUM 9.5 mg/dL (8.6-10.3); CARBON DIOXIDE 29.7 mEq/L (21.0-31.0); CHLORIDE 99 mEq/L (98-107); CREATININE - SERUM 0.4 mg/dL (0.7-1.3); GFR AFRICAN-AMERICAN > 60.0 ml/min (>90); GFR NON AFRICAN-AMERICAN > 60.0 ml/min; GLUCOSE 126 mg/dL (70-105); POTASSIUM SERUM 4.2 mEq/L (3.5-5.1); SGOT 31 U/L (13-39); SGPT/ALT 40 U/L (7-52); SODIUM SERUM 136 mEq/L (136-145); TOTAL PROTEIN,SERUM 7.8 gm/dL (6.0-8.3)
[2017-09-29] MEDS ORDERED: Venelex 60gm Tube TP ONE (07:47)
--- NOTE | 2017-09-29 07:51 | Diagnostic Imaging Report ---
Portable chest x-ray HISTORY: Pain Allowing for a poor inspiration and patient rotation, the heart size is normal. No definite focal pulmonary processes. IMPRESSION: 1. No acute abnormalities
--- NOTE | 2017-09-29 08:20 | General Progress Note ---
Subjective - Review of Systems Service Date: 09/29/17 Events since last encounter: had diverting colostomy here on and developed prolapse yesterday has MS bedridden, discussed consent with brother via phone Plan: resection of prolapse, debride feet, central line placement Objective - Results Result Diagrams: 09/29/17 06:10 09/29/17 06:10 Recent Labs: Laboratory Last Values WBC 7.3 Th/cmm (4.8-10.8) 09/29/17 06:10 RBC 4.05 Mil/cmm (4.30-5.70) L 09/29/17 06:10 Hgb 10.7 gm/dL (12-16) L 09/29/17 06:10 Hct 33.8 % (41.0-60) L 09/29/17 06:10 MCV 83.5 fl (80-99) 09/29/17 06:10 MCH 26.5 pg (26.0-30.0) 09/29/17 06:10 MCHC Differential 31.7 pg (28.0-36.0) 09/29/17 06:10 RDW 16.6 % (11.5-20.0) 09/29/17 06:10 Plt Count 434 Th/cmm (150-400) H 09/29/17 06:10 MPV 7.6 fl 09/29/17 06:10 Neutrophils % 72.5 % (40.0-80.0) 09/29/17 06:10 Band Neutrophils % 1 % (0-10) 09/28/17 17:35 Lymphocytes % 19.5 % (20.0-50.0) L 09/29/17 06:10 Monocytes % 6.9 % (2.0-10.0) 09/29/17 06:10 Eosinophils % 0.1 % (0.0-5.0) 09/29/17 06:10 Basophils % 1.0 % (0.0-2.0) 09/29/17 06:10 Neutrophils (Manual) 83 % (40-80) H 09/28/17 17:35 Lymphocytes 10 % (20-50) L 09/28/17 17:35 Monocytes 3 % (2-10) 09/28/17 17:35 Eosinophils 0 % (0-5) 09/28/17 17:35 Basophils 0 % (0-3) 09/28/17 17:35 Myelocytes 3 % 09/28/17 17:35 Platelet Estimate INCREASED PLATELETS (NORMAL) 09/28/17 17:35 PT 11.0 SECONDS (9.5-11.5) 09/28/17 17:35 INR 1.06 (0.5-1.4) 09/28/17 17:35 PTT (Actin FS) 27.2 SECONDS (26.0-38.0) 09/28/17 17:35 Sodium 136 mEq/L (136-145) 09/29/17 06:10 Potassium 4.2 mEq/L (3.5-5.1) 09/29/17 06:10 Chloride 99 mEq/L (98-107) 09/29/17 06:10 Carbon Dioxide 29.7 mEq/L (21.0-31.0) 09/29/17 06:10 Anion Gap 11.5 (7.0-16.0) 09/29/17 06:10 BUN 14 mg/dL (7-25) 09/29/17 06:10 Creatinine 0.4 mg/dL (0.7-1.3) L 09/29/17 06:10 Est GFR ( Amer) > 60.0 ml/min (>90) 09/29/17 06:10 Est GFR (Non-Af Amer) > 60.0 ml/min 09/29/17 06:10 BUN/Creatinine Ratio 35.0 09/29/17 06:10 Glucose 126 mg/dL (70-105) H 09/29/17 06:10 Calcium 9.5 mg/dL (8.6-10.3) 09/29/17 06:10 Total Bilirubin 0.2 mg/dL (0.3-1.0) L 09/29/17 06:10 AST 31 U/L (13-39) 09/29/17 06:10 ALT 40 U/L (7-52) 09/29/17 06:10 Alkaline Phosphatase 73 U/L (34-104) 09/29/17 06:10 Creatine Kinase 17 U/L (30-223) L 09/28/17 17:35 Troponin I 0.01 ng/mL (0.01-0.05) 09/28/17 17:35 B-Natriuretic Peptide 13.7 pg/mL (5.0-100.0) 09/28/17 17:35 Total Protein 7.8 gm/dL (6.0-8.3) 09/29/17 06:10 Albumin 3.0 gm/dL (4.2-5.5) L 09/29/17 06:10 Globulin 4.8 gm/dL 09/29/17 06:10 Albumin/Globulin Ratio 0.6 (1.0-1.8) L 09/29/17 06:10 Triglycerides 169 mg/dL (<150) H 09/28/17 17:35 Cholesterol 133 mg/dL (<200) 09/28/17 17:35 LDL Cholesterol Direct 70 mg/dL (75-193) L 09/28/17 17:35 HDL Cholesterol 40 mg/dL (23-92) 09/28/17 17:35 Amylase 79 U/L (29-103) 09/28/17 17:35 Lipase 15 U/L (11-82) 09/28/17 17:35 Urine Source CLEAN C 09/28/17 20:10 Urine Color YELLOW 09/28/17 20:10 Urine Clarity CLEAR (CLEAR) 09/28/17 20:10 Urine pH 8.0 (4.6 - 8.0) 09/28/17 20:10 Ur Specific [place] 1.020 (1.005-1.030) 09/28/17 20:10 Urine Protein NEGATIVE mg/dL (NEGATIVE) 09/28/17 20:10 Urine Glucose (UA) NEGATIVE mg/dL (NEGATIVE) 09/28/17 20:10 Urine Ketones NEGATIVE mg/dL (NEGATIVE) 09/28/17 20:10 Urine Blood TRACE (NEGATIVE) 09/28/17 20:10 Urine Nitrate NEGATIVE (NEGATIVE) 09/28/17 20:10 Urine Bilirubin NEGATIVE (NEGATIVE) 09/28/17 20:10 Urine Urobilinogen 0.2 E.U./dL (0.2 - 1.0) 09/28/17 20:10 Ur Leukocyte Esterase NEGATIVE (NEGATIVE) 09/28/17 20:10 Urine RBC 2-5 /hpf (0-5) H 09/28/17 20:10 Urine WBC 0-2 /hpf (0-5) 09/28/17 20:10 Ur Epithelial Cells RARE /lpf (FEW) 09/28/17 20:10 Amorphous Sediment MANY PHOSPHATES (NONE SEEN) 09/28/17 20:10 Urine Bacteria NONE SEEN /hpf (NONE SEEN) 09/28/17 20:10 - Physical Exam Vitals and I&O: Vital Signs Temp 97.7 F 09/29/17 07:49 Pulse 64 09/29/17 07:49 Resp 18 09/29/17 07:49 BP 139/69 09/29/17 07:49 Pulse Ox 100 09/29/17 07:49 Intake & Output 09/28/17 09/29/17 09/29/17 18:59 06:59 18:59 Intake Total 100 Balance 100 Weight (lbs) 67.222 kg Intake: Intake, IV Amount 100 metroNIDAZOLE 500mg/NS 100 100mL 500 mg In 100 ml @ 100 mls/hr IV Q8HR [facility] Rx #:[id number] Other: Weight Source Bedscale Active Medications: Current Medications Acetaminophen (Tylenol 650mg/20.3ml Suspension) 650 mg GT Q4H PRN PRN Reason: pain/temp>101 Stop: 11/27/17 19:31 Acetylcysteine (Mucomyst 20%) 3 ml HHN Q4HRT [facility] Stop: 11/27/17 22:59 Last Admin: 09/29/17 07:48 Dose: Not Given Albuterol/Ipratropium (Duoneb Neb) 3 ml HHN Q4HRT [facility] Stop: 11/27/17 22:59 Last Admin: 09/29/17 07:48 Dose: 3 ml Albuterol/Ipratropium (Duoneb Neb) 3 ml HHN Q2H PRN PRN Reason: Shortness of Breath Stop: 11/27/17 19:31 Docusate Sodium (Colace) 250 mg GT BID [facility] Stop: 11/28/17 08:59 Dextrose/Sodium Chloride (D5-0.9%Ns) 1,000 mls @ 80 mls/hr IV .[id number] [facility] Stop: 11/27/17 19:44 Last Admin: 09/28/17 22:17 Dose: 80 mls/hr Metronidazole (Flagyl) 500 mg in 100 mls @ 100 mls/hr IV Q8HR [facility] Stop: 11/27/17 20:59 Last Admin: 09/29/17 05:12 Dose: 100 mls/hr Levofloxacin (Levaquin Pb) 500 mg in 100 mls @ 100 mls/hr IV Q24HR [facility] Stop: 11/28/17 20:59 Magnesium Hydroxide (Milk Of Magnesia) 30 ml GT Q7H PRN PRN Reason: Constipation Stop: 11/27/17 19:31 Methylprednisolone Sodium Succinate (Solu-Medrol) 80 mg IV Q8HR [facility] Stop: 11/27/17 20:59 Last Admin: 09/29/17 05:12 Dose: 80 mg Midodrine (Proamatine) 10 mg GT Q8HR [facility] Stop: 11/28/17 12:59 Miscellaneous (Tpn Per Pharmacy) 1 ea MC PRN PRN PRN Reason: PROTOCOL Stop: 11/27/17 19:35 Morphine Sulfate (Morphine) 1 mg IVP Q4H PRN PRN Reason: Pain (Severe) Ondansetron HCl (Zofran) 4 mg IV Q8HR PRN PRN Reason: Nausea / Vomiting Stop: 11/27/17 19:31 Zinc Sulfate (Zinc Sulfate) 220 mg GT DAILY [facility] Stop: 11/28/17 08:59 - Procedures Procedures: Procedures Procedure Code Date BYPASS DESCENDING COLON TO CUTANEOUS, OPEN APPROACH [id number] 08/14/17 COLOSTOMY 46074 08/14/17 CYSTOSCOPY & URETER CATHETER 98376 08/14/17 CECILY BONE 20 SQ CM/< 45929 08/14/17 DRAINAGE OF BLADDER WITH DRAINAGE DEVICE, ENDO [id number] 08/14/17 EXCISION OF SACRUM, OPEN APPROACH [id number] 08/14/17 EXTIRPATION OF MATTER FROM BLADDER, ENDO [id number] 08/14/17
[2017-09-29] MEDS: Docusate Sodium 100 mg/10 mL UD GT SCH (08:36)
[2017-09-29] MEDS: Multivitamin w/ Minerals Tab GT SCH (08:36)
[2017-09-29 09:05] LABS: MAGNESIUM 1.9 mg/dL (1.9-2.7); PHOSPHOROUS 4.2 mg/dL (2.5-5.0)
[2017-09-29] MEDS ORDERED: fentaNYL Citrate 100 mcg/2mL Vial ONE (09:27)
[2017-09-29] MEDS ORDERED: VTE Chemical Prophylaxis Screen/Admission MC PRN (09:59)
[2017-09-29] MEDS ORDERED: Albuterol/Ipratropium Neb 3 ML AERS HHN PRN (10:00)
[2017-09-29] MEDS ORDERED: Propofol **SURGERY USE ONLY** 20 ML IV ONE (11:13)
[2017-09-29] MEDS ORDERED: Lidocaine 2% Vial 20 mL Vial ONE (11:13)
[2017-09-29] MEDS ORDERED: Meperidine 50 mg/mL 1mL Syr ONE ×2 (11:28→12:10)
[2017-09-29] MEDS ORDERED: Probiotic Screen MC PRN (11:45)
--- NOTE | 2017-09-29 11:53 | Operative Report ---
DATE OF SURGERY: 09/29/2017 PREOPERATIVE DIAGNOSES: 1. Prolapsed colostomy. 2. Multiple sclerosis. 3. Bedridden status. 4. Sacral decubitus ulcer. 5. Peripheral vascular disease with ulceration of both feet. POSTOPERATIVE DIAGNOSIS: Intussusception of the descending colon. OPERATION DONE: 1. Exploratory laparotomy with resection of descending colon and qiud-nr-mwnp anastomosis. 2. Excisional debridement of sacral decubitus ulcer with application of wound VAC. 3. Excisional debridement, right foot ulcers. 4. Excisional debridement, left foot ulcers. SURGEON: Shauna Carrera MD ANESTHESIA: General. ANESTHESIOLOGIST: Hui. ESTIMATED BLOOD LOSS: 50 mL. OPERATIVE FINDINGS: The descending colon had intussuscepted into the distal portion causing the prolapse. Approximately 2 feet of descending colon was resected, pwnc-vp-brwy anastomosis was performed. DESCRIPTION OF PROCEDURE: The patient was given general anesthesia. The abdomen was prepped with Betadine and draped in appropriate manner. The incision was carried through the old scar. Bleeders were clipped or coagulated. The abdominal cavity was entered. It was found that the patient in fact had intercepted his colon causing the prolapse. The intussusception was pulled back into the abdominal cavity. The descending colon was freed from its lateral attachments and about 2 feet of colon was resected and a glzv-gi-fnws anastomosis performed. Use of impact device for the mesentery was done. The staple line was reinforced with running suture of 3-0 silk to close also the mesentery. Following satisfactory hemostasis, a Marcos drain was left in the pelvis. The abdominal incision was closed with running suture of #1 PDS and the skin with subcuticular suture of 4-0 Vicryl. Sterile dressing was placed over this. The patient is placed in the lateral decubitus position. Necrotic tissue of the sacral decubitus ulcer was debrided and a silver sponge was applied to the wound VAC. Both feet were then prepped with Betadine and ulcers were debrided sharply with scissors and knife. Local wound care will be ordered. The patient will be sent to ICU for observation the first 24 hours. JOB# [id number]
--- NOTE | 2017-09-29 12:04 | Diagnostic Imaging Report ---
Portable chest x-ray HISTORY: Shortness of breath, endotracheal tube placement Compared with prior exam of 09/28/2017, an endotracheal tube has been inserted. The tip is approximately 2.5 cm above the bethel. A right jugular line has been inserted. The tip is in the region of the superior vena cava. No focal pulmonary processes are seen. IMPRESSION: 1. Line and tube placements as noted above 2. No focal pulmonary processes
--- NOTE | 2017-09-29 12:34 | Internal Medicine Prog Note ---
<Mutuc,Lena - Last Filed: 09/29/17 12:34> Internal Medicine Subjective - Subjective Service Date: 09/29/17 ([facility] dictated [id number]) Internal Medicine Objective - Results Result Diagrams: 09/29/17 06:10 09/29/17 06:10 Recent Labs: Laboratory Last Values WBC 7.3 Th/cmm (4.8-10.8) 09/29/17 06:10 RBC 4.05 Mil/cmm (4.30-5.70) L 09/29/17 06:10 Hgb 10.7 gm/dL (12-16) L 09/29/17 06:10 Hct 33.8 % (41.0-60) L 09/29/17 06:10 MCV 83.5 fl (80-99) 09/29/17 06:10 MCH 26.5 pg (26.0-30.0) 09/29/17 06:10 MCHC Differential 31.7 pg (28.0-36.0) 09/29/17 06:10 RDW 16.6 % (11.5-20.0) 09/29/17 06:10 Plt Count 434 Th/cmm (150-400) H 09/29/17 06:10 MPV 7.6 fl 09/29/17 06:10 Neutrophils % 72.5 % (40.0-80.0) 09/29/17 06:10 Band Neutrophils % 1 % (0-10) 09/28/17 17:35 Lymphocytes % 19.5 % (20.0-50.0) L 09/29/17 06:10 Monocytes % 6.9 % (2.0-10.0) 09/29/17 06:10 Eosinophils % 0.1 % (0.0-5.0) 09/29/17 06:10 Basophils % 1.0 % (0.0-2.0) 09/29/17 06:10 Neutrophils (Manual) 83 % (40-80) H 09/28/17 17:35 Lymphocytes 10 % (20-50) L 09/28/17 17:35 Monocytes 3 % (2-10) 09/28/17 17:35 Eosinophils 0 % (0-5) 09/28/17 17:35 Basophils 0 % (0-3) 09/28/17 17:35 Myelocytes 3 % 09/28/17 17:35 Platelet Estimate INCREASED PLATELETS (NORMAL) 09/28/17 17:35 PT 11.0 SECONDS (9.5-11.5) 09/28/17 17:35 INR 1.06 (0.5-1.4) 09/28/17 17:35 PTT (Actin FS) 27.2 SECONDS (26.0-38.0) 09/28/17 17:35 Sodium 136 mEq/L (136-145) 09/29/17 06:10 Potassium 4.2 mEq/L (3.5-5.1) 09/29/17 06:10 Chloride 99 mEq/L (98-107) 09/29/17 06:10 Carbon Dioxide 29.7 mEq/L (21.0-31.0) 09/29/17 06:10 Anion Gap 11.5 (7.0-16.0) 09/29/17 06:10 BUN 14 mg/dL (7-25) 09/29/17 06:10 Creatinine 0.4 mg/dL (0.7-1.3) L 09/29/17 06:10 Est GFR ( Amer) > 60.0 ml/min (>90) 09/29/17 06:10 Est GFR (Non-Af Amer) > 60.0 ml/min 09/29/17 06:10 BUN/Creatinine Ratio 35.0 09/29/17 06:10 Glucose 126 mg/dL (70-105) H 09/29/17 06:10 Calcium 9.5 mg/dL (8.6-10.3) 09/29/17 06:10 Phosphorus 4.2 mg/dL (2.5-5.0) 09/29/17 06:10 Magnesium 1.9 mg/dL (1.9-2.7) 09/29/17 06:10 Total Bilirubin 0.2 mg/dL (0.3-1.0) L 09/29/17 06:10 AST 31 U/L (13-39) 09/29/17 06:10 ALT 40 U/L (7-52) 09/29/17 06:10 Alkaline Phosphatase 73 U/L (34-104) 09/29/17 06:10 Creatine Kinase 17 U/L (30-223) L 09/28/17 17:35 Troponin I 0.01 ng/mL (0.01-0.05) 09/28/17 17:35 B-Natriuretic Peptide 13.7 pg/mL (5.0-100.0) 09/28/17 17:35 Total Protein 7.8 gm/dL (6.0-8.3) 09/29/17 06:10 Albumin 3.0 gm/dL (4.2-5.5) L 09/29/17 06:10 Globulin 4.8 gm/dL 09/29/17 06:10 Albumin/Globulin Ratio 0.6 (1.0-1.8) L 09/29/17 06:10 Triglycerides 166 mg/dL (<150) H 09/29/17 06:10 Cholesterol 148 mg/dL (<200) 09/29/17 06:10 LDL Cholesterol Direct 70 mg/dL (75-193) L 09/28/17 17:35 HDL Cholesterol 40 mg/dL (23-92) 09/28/17 17:35 Amylase 79 U/L (29-103) 09/28/17 17:35 Lipase 15 U/L (11-82) 09/28/17 17:35 Urine Source CLEAN C 09/28/17 20:10 Urine Color YELLOW 09/28/17 20:10 Urine Clarity CLEAR (CLEAR) 09/28/17 20:10 Urine pH 8.0 (4.6 - 8.0) 09/28/17 20:10 Ur Specific Hunter 1.020 (1.005-1.030) 09/28/17 20:10 Urine Protein NEGATIVE mg/dL (NEGATIVE) 09/28/17 20:10 Urine Glucose (UA) NEGATIVE mg/dL (NEGATIVE) 09/28/17 20:10 Urine Ketones NEGATIVE mg/dL (NEGATIVE) 09/28/17 20:10 Urine Blood TRACE (NEGATIVE) 09/28/17 20:10 Urine Nitrate NEGATIVE (NEGATIVE) 09/28/17 20:10 Urine Bilirubin NEGATIVE (NEGATIVE) 09/28/17 20:10 Urine Urobilinogen 0.2 E.U./dL (0.2 - 1.0) 09/28/17 20:10 Ur Leukocyte Esterase NEGATIVE (NEGATIVE) 09/28/17 20:10 Urine RBC 2-5 /hpf (0-5) H 09/28/17 20:10 Urine WBC 0-2 /hpf (0-5) 09/28/17 20:10 Ur Epithelial Cells RARE /lpf (FEW) 09/28/17 20:10 Amorphous Sediment MANY PHOSPHATES (NONE SEEN) 09/28/17 20:10 Urine Bacteria NONE SEEN /hpf (NONE SEEN) 09/28/17 20:10 - Physical Exam Vitals and I&O: Vital Signs Temp 97.7 F 09/29/17 07:49 Pulse 64 09/29/17 07:49 Resp 18 09/29/17 08:00 BP 139/69 09/29/17 07:49 Pulse Ox 100 09/29/17 07:49 Intake & Output 09/28/17 09/29/17 09/29/17 18:59 06:59 18:59 Intake Total 100 Balance 100 Weight (lbs) 148 lb 3.2 oz Intake: Intake, IV Amount 100 metroNIDAZOLE 500mg/NS 100 100mL 500 mg In 100 ml @ 100 mls/hr IV Q8HR [facility] Rx #:[id number] Other: Weight Source Bedscale Active Medications: Current Medications Acetaminophen (Tylenol 650mg/20.3ml Suspension) 650 mg GT Q4H PRN PRN Reason: pain/temp>101 Stop: 11/27/17 19:31 Acetylcysteine (Mucomyst 20%) 3 ml HHN Q4HRT [facility] Stop: 11/27/17 22:59 Last Admin: 09/29/17 07:48 Dose: Not Given Albuterol/Ipratropium (Duoneb Neb) 3 ml HHN Q4HRT [facility] Stop: 11/27/17 22:59 Last Admin: 09/29/17 07:48 Dose: 3 ml Albuterol/Ipratropium (Duoneb Neb) 3 ml HHN Q2HRT PRN PRN Reason: Shortness of Breath Stop: 11/27/17 19:31 Docusate Sodium (Colace) 250 mg GT BID [facility] Stop: 11/28/17 08:59 Last Admin: 09/29/17 08:36 Dose: Not Given Heparin Sodium (Porcine) (Heparin) 5,000 units SUBQ Q12HR [facility] Stop: 11/28/17 20:59 Metronidazole (Flagyl) 500 mg in 100 mls @ 100 mls/hr IV Q8HR [facility] Stop: 11/27/17 20:59 Last Admin: 09/29/17 05:12 Dose: 100 mls/hr Levofloxacin (Levaquin Pb) 500 mg in 100 mls @ 100 mls/hr IV Q24HR [facility] Stop: 11/28/17 20:59 Multivitamins/Minerals 10 ml/Amino Acids/ Fat Emulsion Intravenous 1,200 mls @ 50 mls/hr IV .Q24H [facility] Stop: 11/28/17 14:59 Dextrose/Sodium Chloride (D5-0.9%Ns) 1,000 mls @ 80 mls/hr IV .[id number] [facility] Stop: 11/28/17 14:59 Magnesium Hydroxide (Milk Of Magnesia) 30 ml GT DAILY PRN PRN Reason: Constipation Stop: 11/27/17 19:31 Methylprednisolone Sodium Succinate (Solu-Medrol) 80 mg IV Q8HR [facility] Stop: 11/27/17 20:59 Last Admin: 09/29/17 05:12 Dose: 80 mg Midodrine (Proamatine) 10 mg GT Q8HR [facility] Stop: 11/28/17 12:59 Miscellaneous (Tpn Per Pharmacy) 1 ea PRN PRN PRN Reason: PROTOCOL Stop: 11/27/17 19:35 Miscellaneous (Vte Chemical Prophylaxis Screen/ Admission) 1 ea PRN PRN PRN Reason: PROTOCOL Stop: 11/28/17 09:58 Miscellaneous (Probiotic Screen) 1 ea PRN PRN PRN Reason: PROTOCOL Stop: 11/28/17 11:44 Morphine Sulfate (Morphine) 1 mg IVP Q4H PRN PRN Reason: Pain (Severe) Ondansetron HCl (Zofran) 4 mg IV Q8HR PRN PRN Reason: Nausea / Vomiting Stop: 11/27/17 19:31 Zinc Sulfate (Zinc Sulfate) 220 mg GT DAILY [facility] Stop: 11/28/17 08:59 Last Admin: 09/29/17 08:37 Dose: Not Given - Procedures Procedures: Procedures Procedure Code Date BYPASS DESCENDING COLON TO CUTANEOUS, OPEN APPROACH [id number] 08/14/17 COLOSTOMY 78743 08/14/17 CYSTOSCOPY & URETER CATHETER 08985 08/14/17 CECILY BONE 20 SQ CM/< 67837 08/14/17 DRAINAGE OF BLADDER WITH DRAINAGE DEVICE, ENDO [id number] 08/14/17 EXCISION OF SACRUM, OPEN APPROACH [id number] 08/14/17 EXTIRPATION OF MATTER FROM BLADDER, ENDO [id number] 08/14/17 <Jeffrey Alberts - Last Filed: 09/29/17 12:53> Internal Medicine Objective - Results Result Diagrams: 09/29/17 06:10 09/29/17 06:10 Recent Labs: Laboratory Last Values WBC 7.3 Th/cmm (4.8-10.8) 09/29/17 06:10 RBC 4.05 Mil/cmm (4.30-5.70) L 09/29/17 06:10 Hgb 10.7 gm/dL (12-16) L 09/29/17 06:10 Hct 33.8 % (41.0-60) L 09/29/17 06:10 MCV 83.5 fl (80-99) 09/29/17 06:10 MCH 26.5 pg (26.0-30.0) 09/29/17 06:10 MCHC Differential 31.7 pg (28.0-36.0) 09/29/17 06:10 RDW 16.6 % (11.5-20.0) 09/29/17 06:10 Plt Count 434 Th/cmm (150-400) H 09/29/17 06:10 MPV 7.6 fl 09/29/17 06:10 Neutrophils % 72.5 % (40.0-80.0) 09/29/17 06:10 Band Neutrophils % 1 % (0-10) 09/28/17 17:35 Lymphocytes % 19.5 % (20.0-50.0) L 09/29/17 06:10 Monocytes % 6.9 % (2.0-10.0) 09/29/17 06:10 Eosinophils % 0.1 % (0.0-5.0) 09/29/17 06:10 Basophils % 1.0 % (0.0-2.0) 09/29/17 06:10 Neutrophils (Manual) 83 % (40-80) H 09/28/17 17:35 Lymphocytes 10 % (20-50) L 09/28/17 17:35 Monocytes 3 % (2-10) 09/28/17 17:35 Eosinophils 0 % (0-5) 09/28/17 17:35 Basophils 0 % (0-3) 09/28/17 17:35 Myelocytes 3 % 09/28/17 17:35 Platelet Estimate INCREASED PLATELETS (NORMAL) 09/28/17 17:35 PT 11.0 SECONDS (9.5-11.5) 09/28/17 17:35 INR 1.06 (0.5-1.4) 09/28/17 17:35 PTT (Actin FS) 27.2 SECONDS (26.0-38.0) 09/28/17 17:35 Sodium 136 mEq/L (136-145) 09/29/17 06:10 Potassium 4.2 mEq/L (3.5-5.1) 09/29/17 06:10 Chloride 99 mEq/L (98-107) 09/29/17 06:10 Carbon Dioxide 29.7 mEq/L (21.0-31.0) 09/29/17 06:10 Anion Gap 11.5 (7.0-16.0) 09/29/17 06:10 BUN 14 mg/dL (7-25) 09/29/17 06:10 Creatinine 0.4 mg/dL (0.7-1.3) L 09/29/17 06:10 Est GFR ( Amer) > 60.0 ml/min (>90) 09/29/17 06:10 Est GFR (Non-Af Amer) > 60.0 ml/min 09/29/17 06:10 BUN/Creatinine Ratio 35.0 09/29/17 06:10 Glucose 126 mg/dL (70-105) H 09/29/17 06:10 Calcium 9.5 mg/dL (8.6-10.3) 09/29/17 06:10 Phosphorus 4.2 mg/dL (2.5-5.0) 09/29/17 06:10 Magnesium 1.9 mg/dL (1.9-2.7) 09/29/17 06:10 Total Bilirubin 0.2 mg/dL (0.3-1.0) L 09/29/17 06:10 AST 31 U/L (13-39) 09/29/17 06:10 ALT 40 U/L (7-52) 09/29/17 06:10 Alkaline Phosphatase 73 U/L (34-104) 09/29/17 06:10 Creatine Kinase 17 U/L (30-223) L 09/28/17 17:35 Troponin I 0.01 ng/mL (0.01-0.05) 09/28/17 17:35 B-Natriuretic Peptide 13.7 pg/mL (5.0-100.0) 09/28/17 17:35 Total Protein 7.8 gm/dL (6.0-8.3) 09/29/17 06:10 Albumin 3.0 gm/dL (4.2-5.5) L 09/29/17 06:10 Globulin 4.8 gm/dL 09/29/17 06:10 Albumin/Globulin Ratio 0.6 (1.0-1.8) L 09/29/17 06:10 Triglycerides 166 mg/dL (<150) H 09/29/17 06:10 Cholesterol 148 mg/dL (<200) 09/29/17 06:10 LDL Cholesterol Direct 70 mg/dL (75-193) L 09/28/17 17:35 HDL Cholesterol 40 mg/dL (23-92) 09/28/17 17:35 Amylase 79 U/L (29-103) 09/28/17 17:35 Lipase 15 U/L (11-82) 09/28/17 17:35 Urine Source CLEAN C 09/28/17 20:10 Urine Color YELLOW 09/28/17 20:10 Urine Clarity CLEAR (CLEAR) 09/28/17 20:10 Urine pH 8.0 (4.6 - 8.0) 09/28/17 20:10 Ur Specific Hunter 1.020 (1.005-1.030) 09/28/17 20:10 Urine Protein NEGATIVE mg/dL (NEGATIVE) 09/28/17 20:10 Urine Glucose (UA) NEGATIVE mg/dL (NEGATIVE) 09/28/17 20:10 Urine Ketones NEGATIVE mg/dL (NEGATIVE) 09/28/17 20:10 Urine Blood TRACE (NEGATIVE) 09/28/17 20:10 Urine Nitrate NEGATIVE (NEGATIVE) 09/28/17 20:10 Urine Bilirubin NEGATIVE (NEGATIVE) 09/28/17 20:10 Urine Urobilinogen 0.2 E.U./dL (0.2 - 1.0) 09/28/17 20:10 Ur Leukocyte Esterase NEGATIVE (NEGATIVE) 09/28/17 20:10 Urine RBC 2-5 /hpf (0-5) H 09/28/17 20:10 Urine WBC 0-2 /hpf (0-5) 09/28/17 20:10 Ur Epithelial Cells RARE /lpf (FEW) 09/28/17 20:10 Amorphous Sediment MANY PHOSPHATES (NONE SEEN) 09/28/17 20:10 Urine Bacteria NONE SEEN /hpf (NONE SEEN) 09/28/17 20:10 - Physical Exam Vitals and I&O: Vital Signs Temp 97.7 F 09/29/17 07:49 Pulse 64 09/29/17 07:49 Resp 18 09/29/17 08:00 BP 139/69 09/29/17 07:49 Pulse Ox 100 09/29/17 07:49 Intake & Output 09/28/17 09/29/17 09/29/17 18:59 06:59 18:59 Intake Total 100 Balance 100 Weight (lbs) 67.222 kg Intake: Intake, IV Amount 100 metroNIDAZOLE 500mg/NS 100 100mL 500 mg In 100 ml @ 100 mls/hr IV Q8HR [facility] Rx #:[id number] Other: Weight Source Bedscale Active Medications: Current Medications Acetaminophen (Tylenol 650mg/20.3ml Suspension) 650 mg GT Q4H PRN PRN Reason: pain/temp>101 Stop: 11/27/17 19:31 Acetylcysteine (Mucomyst 20%) 3 ml HHN Q4HRT [facility] Stop: 11/27/17 22:59 Last Admin: 09/29/17 07:48 Dose: Not Given Albuterol/Ipratropium (Duoneb Neb) 3 ml HHN Q4HRT [facility] Stop: 11/27/17 22:59 Last Admin: 09/29/17 07:48 Dose: 3 ml Albuterol/Ipratropium (Duoneb Neb) 3 ml HHN Q2HRT PRN PRN Reason: Shortness of Breath Stop: 11/27/17 19:31 Docusate Sodium (Colace) 250 mg GT BID [facility] Stop: 11/28/17 08:59 Last Admin: 09/29/17 08:36 Dose: Not Given Heparin Sodium (Porcine) (Heparin) 5,000 units SUBQ Q12HR [facility] Stop: 11/28/17 20:59 Metronidazole (Flagyl) 500 mg in 100 mls @ 100 mls/hr IV Q8HR [facility] Stop: 11/27/17 20:59 Last Admin: 09/29/17 05:12 Dose: 100 mls/hr Levofloxacin (Levaquin Pb) 500 mg in 100 mls @ 100 mls/hr IV Q24HR [facility] Stop: 11/28/17 20:59 Multivitamins/Minerals 10 ml/Amino Acids/ Fat Emulsion Intravenous 1,200 mls @ 50 mls/hr IV .Q24H [facility] Stop: 11/28/17 14:59 Dextrose/Sodium Chloride (D5-0.9%Ns) 1,000 mls @ 80 mls/hr IV .[id number] [facility] Stop: 11/28/17 14:59 Magnesium Hydroxide (Milk Of Magnesia) 30 ml GT DAILY PRN PRN Reason: Constipation Stop: 11/27/17 19:31 Methylprednisolone Sodium Succinate (Solu-Medrol) 80 mg IV Q8HR [facility] Stop: 11/27/17 20:59 Last Admin: 09/29/17 05:12 Dose: 80 mg Midodrine (Proamatine) 10 mg GT Q8HR [facility] Stop: 11/28/17 12:59 Miscellaneous (Tpn Per Pharmacy) 1 ea PRN PRN PRN Reason: PROTOCOL Stop: 11/27/17 19:35 Miscellaneous (Vte Chemical Prophylaxis Screen/ Admission) 1 ea PRN PRN PRN Reason: PROTOCOL Stop: 11/28/17 09:58 Miscellaneous (Probiotic Screen) 1 ea PRN PRN PRN Reason: PROTOCOL Stop: 11/28/17 11:44 Morphine Sulfate (Morphine) 1 mg IVP Q4H PRN PRN Reason: Pain (Severe) Ondansetron HCl (Zofran) 4 mg IV Q8HR PRN PRN Reason: Nausea / Vomiting Stop: 11/27/17 19:31 Zinc Sulfate (Zinc Sulfate) 220 mg GT DAILY [facility] Stop: 11/28/17 08:59 Last Admin: 09/29/17 08:37 Dose: Not Given - Procedures Procedures: Procedures Procedure Code Date BYPASS DESCENDING COLON TO CUTANEOUS, OPEN APPROACH [id number] 08/14/17 COLOSTOMY 88654 08/14/17 CYSTOSCOPY & URETER CATHETER 85338 08/14/17 CECILY BONE 20 SQ CM/< 31945 08/14/17 DRAINAGE OF BLADDER WITH DRAINAGE DEVICE, ENDO [id number] 08/14/17 EXCISION OF SACRUM, OPEN APPROACH [id number] 08/14/17 EXTIRPATION OF MATTER FROM BLADDER, ENDO [id number] 08/14/17 Internal Medicine Assmt/Plan - Assessment Assessment: pt seen and examined on vnt support sp colostomy repair, resection, sp i and d of wounds dw rn see orders
[2017-09-29 13:08] LABS: pH 7.54 (7.35-7.45)
[2017-09-29] MEDS: D5-0.9%NS 1,000 ML IV SCH (14:12)
--- NOTE | 2017-09-29 14:58 | History & Physical ---
ADMIT DATE: 09/29/2017 CHIEF COMPLAINT: Transferred from [facility] due to prolapsed colostomy. HISTORY OF PRESENT ILLNESS: This is a 57-year-old male who is well known to me from [facility]. The patient was seen by Dr. Carrera at [facility] and patient was noted to have a prolapsed colostomy. It was then decided for this patient to be transferred to acute hospital for resection of descending colon and [id number]-[id number] anastomosis. Just this morning, patient had an exploratory laparotomy with resection of descending colon and viky-pt-qrkt anastomosis and excisional debridement of sacral decubitus ulcer with application of wound VAC, excisional debridement of right foot ulcers and excisional debridement of left foot ulcers. The patient tolerated the procedure well. Postop, the patient is orally intubated on ventilator in ICU. PAST MEDICAL HISTORY: Multiple sclerosis, multiple decubitus ulcerations, malnutrition. SURGICAL HISTORY: Status post exploratory laparotomy, resection of descending colon, excisional debridement of sacral decubitus ulcer, excisional debridement of right foot ulcers, and excisional debridement of left foot ulcer. MEDICATIONS: Mucomyst, Tylenol, D5 NS at 80, docusate sodium, heparin 5000 units q.12h., Levaquin 500 mg IV q. 24 hours, Solu-Medrol, Flagyl, midodrine, multivitamin. FAMILY HISTORY: Noncontributory. SOCIAL HISTORY: The patient is a shelter resident, requiring 24-hour nursing care. REVIEW OF SYSTEMS: Unable to obtain due to patient's mental status. PHYSICAL EXAMINATION: GENERAL: Elderly male, appears chronically ill, orally intubated, on ventilator. VITAL SIGNS: Temperature 97.7, heart rate 64, blood pressure 139/69, respirations 18, O2 100%. HEENT: Head; normocephalic, atraumatic. NECK: Supple. No mass. LUNGS: Equal breath sounds. Few rhonchi. CARDIOVASCULAR: Regular rate and rhythm without appreciable murmurs. ABDOMEN: Soft, globular. EXTREMITIES: Positive excoriations. LABORATORY DATA: WBC 7.3, H and H 10.7 and 33.8, platelet of 434. Sodium 136, potassium 4.2, chloride 99, BUN 14, creatinine 0.4. Magnesium 1.9. The patient had a chest x-ray done and the impression is line and tube placements as noted above, no focal pulmonary processes. ASSESSMENT: 1. Prolapsed colostomy, status post exploratory laparotomy, resection of descending colon and [id number]-dz-[id number] anastomosis, status post excisional debridement of sacral decubitus ulceration with wound VAC. 2. Excisional debridement of right foot ulcers. 3. Excisional debridement, left foot ulcers. 4. Acute urinary tract infection, multiple sclerosis, schizophrenic affective disorder. PLAN: We will add Pulmonology on the case for ventilator management. Get wound care on the case as well. Continue with wound VAC. Continue with IV antibiotics. Continue with IV fluids for hydration. We will get some followup labs for tomorrow morning. Continue the rest of the orders. JOB# [id number]
[2017-09-29] MEDS ORDERED: DEXT 10% IV SCH (15:00)
[2017-09-29] MEDS ORDERED: MULTIVITAMIN IV SCH (15:00)
[2017-09-29] MEDS ORDERED: INTRALIPIDS IV SCH (15:00)
[2017-09-29] MEDS ORDERED: D5-0.9%NS 1,000 ML IV SCH (15:00)
[2017-09-29] MEDS ORDERED: AMINO ACIDS IV SCH (15:00)
[2017-09-29] MEDS: INSULIN ASPART SLIDING SCALE 100 UNITS/ML UNIT SUBQ SCH (18:48)
--- NOTE | 2017-09-29 20:07 | Consultation ---
DATE OF CONSULTATION: 09/29/[address] Alberts. Thank you very much Dr. Alberts, for this consultation. HISTORY OF PRESENT ILLNESS: This is a 57-year-old male who has history of multiple sclerosis, dementia, decubitus ulcers recently seen in [facility] [place] for respiratory distress and right lung atelectasis, improved. The patient transferred here for a ball coming out of the colostomy area, underwent surgery with reduction of the bowel and debridement of the decubitus ulcers. The patient was kept on the ventilator postoperatively, appears to be doing okay. PHYSICAL EXAMINATION: GENERAL: Awake, in no distress. VITAL SIGNS: Temperature is 98.6, pulse 89, respirations 15, blood pressure 111/77, saturation 100%. HEENT: Atraumatic, normocephalic. Pupils are equal and reactive to light and accommodation. Ears, nose and throat normal. NECK: Supple. No JVD. CHEST: There are good breath sounds, few rhonchi. HEART: Regular rate and rhythm. ABDOMEN: Soft. EXTREMITIES: No edema. LABORATORY DATA: WBC 7.3, hemoglobin 10.7, hematocrit 33.8, platelets 434. ABGs: pH 7.54, pCO2 of 37, pO2 203, bicarbonate 31, saturation 100%. Sodium is 136, potassium 4.2, BUN is 14, creatinine 0.4. Chest x-ray, ET tube in place. Good lung expansion. No obvious infiltrate. IMPRESSION: This is a 57-year-old male with status post abdominal and decubitus ulcer surgeries on the ventilator postoperatively, respiratory failure. PLAN: Continue ventilator support for now. Clear up secretions, tomorrow we will give a weaning trial of we can extubate her. Continue nebulizer treatment and pulmonary toilet. Thank you very much for this consultation. We will follow the patient with you. JOB# [id number]
[2017-09-29] MEDS: Levofloxacin 500mg/100mL Premix Bag IV SCH (20:21)
[2017-09-29] MEDS: Chlorhexidine Gluconate 0.12% 15mL Mouthwash MM SCH (20:35)
[2017-09-30] MEDS: INSULIN ASPART SLIDING SCALE 100 UNITS/ML UNIT SUBQ SCH ×4 (00:12→17:05)
[2017-09-30] MEDS: Albuterol/Ipratropium Neb 3 ML AERS HHN SCH ×6 (03:21→22:40)
[2017-09-30] MEDS: metroNIDAZOLE 500mg/NS 100mL 500 MG/100 ML BAG IV SCH ×3 (04:28→21:33)
[2017-09-30] MEDS: D5-0.9%NS 1,000 ML IV SCH (04:32)
[2017-09-30 05:09] LABS: % EOSINOPHILS 0.2 % (0.0-5.0); % LYMPHOCYTES 15.8 % (20.0-50.0); HEMOGLOBIN 10.5 gm/dL (12-16); LYMPHOCYTE ABSOLUTE 2.2 Th/cmm (1.5-3.0); MEAN CELL VOLUME 83.2 fl (80-99); MEAN CORPUSCULAR HEMOGLOBIN 27.3 pg (26.0-30.0); MEAN CORPUSCULAR HGB CONC 32.8 pg (28.0-36.0); MEAN PLATELET VOLUME 6.8 fl; MONOCYTE ABSOLUTE 1.2 Th/cmm (0.3-1.0); NEUTROPHILE ABSOLUTE 10.3 Th/cmm (1.8-8.0); PLATELET COUNT 354 Th/cmm (150-400); RED BLOOD COUNT 3.85 Mil/cmm (4.30-5.70)
[2017-09-30 05:33] LABS: WHITE BLOOD COUNT 13.7 Th/cmm (4.8-10.8)
[2017-09-30 05:46] LABS: BUN - UREA NITROGEN 19 mg/dL (7-25); CALCIUM SERUM 8.8 mg/dL (8.6-10.3); CARBON DIOXIDE 28.9 mEq/L (21.0-31.0); CHLORIDE 98 mEq/L (98-107); CREATININE - SERUM 0.4 mg/dL (0.7-1.3); GFR AFRICAN-AMERICAN > 60.0 ml/min (>90); GFR NON AFRICAN-AMERICAN > 60.0 ml/min; GLUCOSE 137 mg/dL (70-105); MAGNESIUM 1.8 mg/dL (1.9-2.7); PHOSPHOROUS 3.3 mg/dL (2.5-5.0); POTASSIUM SERUM 3.9 mEq/L (3.5-5.1); SODIUM SERUM 133 mEq/L (136-145)
--- NOTE | 2017-09-30 08:52 | General Progress Note ---
Subjective - Review of Systems Service Date: 09/30/17 Events since last encounter: labs noted Marcos drain removed stoma looks good ABG today, possible extubation Objective - Results Result Diagrams: 09/30/17 04:30 09/30/17 04:30 Recent Labs: Laboratory Last Values WBC 13.7 Th/cmm (4.8-10.8) H D 09/30/17 04:30 RBC 3.85 Mil/cmm (4.30-5.70) L 09/30/17 04:30 Hgb 10.5 gm/dL (12-16) L 09/30/17 04:30 Hct 32.0 % (41.0-60) L 09/30/17 04:30 MCV 83.2 fl (80-99) 09/30/17 04:30 MCH 27.3 pg (26.0-30.0) 09/30/17 04:30 MCHC Differential 32.8 pg (28.0-36.0) 09/30/17 04:30 RDW 17.0 % (11.5-20.0) 09/30/17 04:30 Plt Count 354 Th/cmm (150-400) 09/30/17 04:30 MPV 6.8 fl 09/30/17 04:30 Neutrophils % 75.0 % (40.0-80.0) 09/30/17 04:30 Band Neutrophils % 1 % (0-10) 09/28/17 17:35 Lymphocytes % 15.8 % (20.0-50.0) L 09/30/17 04:30 Monocytes % 9.0 % (2.0-10.0) 09/30/17 04:30 Eosinophils % 0.2 % (0.0-5.0) 09/30/17 04:30 Basophils % 0.0 % (0.0-2.0) 09/30/17 04:30 Neutrophils (Manual) 83 % (40-80) H 09/28/17 17:35 Lymphocytes 10 % (20-50) L 09/28/17 17:35 Monocytes 3 % (2-10) 09/28/17 17:35 Eosinophils 0 % (0-5) 09/28/17 17:35 Basophils 0 % (0-3) 09/28/17 17:35 Myelocytes 3 % 09/28/17 17:35 Platelet Estimate INCREASED PLATELETS (NORMAL) 09/28/17 17:35 PT 11.0 SECONDS (9.5-11.5) 09/28/17 17:35 INR 1.06 (0.5-1.4) 09/28/17 17:35 PTT (Actin FS) 27.2 SECONDS (26.0-38.0) 09/28/17 17:35 Specimen Source Arterial 09/29/17 12:58 Sample Site lb 09/29/17 12:58 pH 7.54 (7.35-7.45) H 09/29/17 12:58 pCO2 37.0 mmHg (35.0-45.0) 09/29/17 12:58 pO2 203.0 mmHg (80.0-100.0) H 09/29/17 12:58 HCO3 31.7 mEq/L (20.0-26.0) H 09/29/17 12:58 Base Excess 8.6 mEq/L (-3.0-3.0) H 09/29/17 12:58 O2 Saturation 100.0 % (92.0-100.0) 09/29/17 12:58 Osman Test n/a 09/29/17 12:58 Vent Rate 10 09/29/17 12:58 Inspired O2 50 09/29/17 12:58 Tidal Volume 800 09/29/17 12:58 PEEP 0 09/29/17 12:58 Pressure (ins/psv/peep) n/a 09/29/17 12:58 Critical Value Brynn 09/29/17 12:58 Sodium 133 mEq/L (136-145) L 09/30/17 04:30 Potassium 3.9 mEq/L (3.5-5.1) 09/30/17 04:30 Chloride 98 mEq/L (98-107) 09/30/17 04:30 Carbon Dioxide 28.9 mEq/L (21.0-31.0) 09/30/17 04:30 Anion Gap 10.0 (7.0-16.0) 09/30/17 04:30 BUN 19 mg/dL (7-25) 09/30/17 04:30 Creatinine 0.4 mg/dL (0.7-1.3) L 09/30/17 04:30 Est GFR ( Amer) > 60.0 ml/min (>90) 09/30/17 04:30 Est GFR (Non-Af Amer) > 60.0 ml/min 09/30/17 04:30 BUN/Creatinine Ratio 47.5 09/30/17 04:30 Glucose 137 mg/dL (70-105) H 09/30/17 04:30 POC Glucose 122 MG/DL (70 - 105) H 09/30/17 06:16 Calcium 8.8 mg/dL (8.6-10.3) 09/30/17 04:30 Phosphorus 3.3 mg/dL (2.5-5.0) 09/30/17 04:30 Magnesium 1.8 mg/dL (1.9-2.7) L 09/30/17 04:30 Total Bilirubin 0.2 mg/dL (0.3-1.0) L 09/29/17 06:10 AST 31 U/L (13-39) 09/29/17 06:10 ALT 40 U/L (7-52) 09/29/17 06:10 Alkaline Phosphatase 73 U/L (34-104) 09/29/17 06:10 Creatine Kinase 17 U/L (30-223) L 09/28/17 17:35 Troponin I 0.01 ng/mL (0.01-0.05) 09/28/17 17:35 B-Natriuretic Peptide 13.7 pg/mL (5.0-100.0) 09/28/17 17:35 Total Protein 7.8 gm/dL (6.0-8.3) 09/29/17 06:10 Albumin 3.0 gm/dL (4.2-5.5) L 09/29/17 06:10 Globulin 4.8 gm/dL 09/29/17 06:10 Albumin/Globulin Ratio 0.6 (1.0-1.8) L 09/29/17 06:10 Prealbumin 33 mg/dL (10-36) 09/29/17 06:10 Triglycerides 166 mg/dL (<150) H 09/29/17 06:10 Cholesterol 148 mg/dL (<200) 09/29/17 06:10 LDL Cholesterol Direct 70 mg/dL (75-193) L 09/28/17 17:35 HDL Cholesterol 40 mg/dL (23-92) 09/28/17 17:35 Amylase 79 U/L (29-103) 09/28/17 17:35 Lipase 15 U/L (11-82) 09/28/17 17:35 Urine Source CLEAN C 09/28/17 20:10 Urine Color YELLOW 09/28/17 20:10 Urine Clarity CLEAR (CLEAR) 09/28/17 20:10 Urine pH 8.0 (4.6 - 8.0) 09/28/17 20:10 Ur Specific [place] 1.020 (1.005-1.030) 09/28/17 20:10 Urine Protein NEGATIVE mg/dL (NEGATIVE) 09/28/17 20:10 Urine Glucose (UA) NEGATIVE mg/dL (NEGATIVE) 09/28/17 20:10 Urine Ketones NEGATIVE mg/dL (NEGATIVE) 09/28/17 20:10 Urine Blood TRACE (NEGATIVE) 09/28/17 20:10 Urine Nitrate NEGATIVE (NEGATIVE) 09/28/17 20:10 Urine Bilirubin NEGATIVE (NEGATIVE) 09/28/17 20:10 Urine Urobilinogen 0.2 E.U./dL (0.2 - 1.0) 09/28/17 20:10 Ur Leukocyte Esterase NEGATIVE (NEGATIVE) 09/28/17 20:10 Urine RBC 2-5 /hpf (0-5) H 09/28/17 20:10 Urine WBC 0-2 /hpf (0-5) 09/28/17 20:10 Ur Epithelial Cells RARE /lpf (FEW) 09/28/17 20:10 Amorphous Sediment MANY PHOSPHATES (NONE SEEN) 09/28/17 20:10 Urine Bacteria NONE SEEN /hpf (NONE SEEN) 09/28/17 20:10 - Physical Exam Vitals and I&O: Vital Signs Temp 98.5 F 09/30/17 04:00 Pulse 97 09/30/17 06:00 Resp 15 09/30/17 06:00 BP 123/90 09/30/17 06:00 Pulse Ox 99 09/30/17 06:00 Intake & Output 09/29/17 09/30/17 09/30/17 18:59 06:59 18:59 Intake Total 100 1800 Output Total 650 Balance 100 1150 Weight (lbs) 68.356 kg Intake: Intake, IV Amount 100 1200 D5-0.9%Ns 1,000 ml @ 80 1000 mls/hr IV .[id number] [facility] Rx #:[id number] Levofloxacin 500mg/100mL 100 500 mg In 100 ml @ 100 mls/hr IV Q24HR [facility] Rx#: [id number] metroNIDAZOLE 500mg/NS 100 100 100mL 500 mg In 100 ml @ 100 mls/hr IV Q8HR [facility] Rx #:[id number] TPN/PPN 600 Output: Drainage 0 ABDOMEN - MARCOS DRAIN 0 Urine 650 Other: # Bowel Movements 0 Weight Source Bedscale Active Medications: Current Medications Acetaminophen (Tylenol 650mg/20.3ml Suspension) 650 mg GT Q4H PRN PRN Reason: pain/temp>101 Stop: 11/27/17 19:31 Acetylcysteine (Mucomyst 20%) 3 ml HHN Q4HRT [facility] Stop: 11/27/17 22:59 Last Admin: 09/29/17 22:17 Dose: Not Given Albuterol/Ipratropium (Duoneb Neb) 3 ml HHN Q4HRT [facility] Stop: 11/27/17 22:59 Last Admin: 09/30/17 03:21 Dose: 3 ml Albuterol/Ipratropium (Duoneb Neb) 3 ml HHN Q2HRT PRN PRN Reason: Shortness of Breath Stop: 11/27/17 19:31 Chlorhexidine Gluconate (Peridex) 15 ml MM 0800,2000 [facility] Stop: 11/28/17 19:59 Last Admin: 09/29/17 20:35 Dose: 15 ml Docusate Sodium (Colace) 250 mg GT BID [facility] Stop: 11/28/17 08:59 Last Admin: 09/29/17 08:36 Dose: Not Given Heparin Sodium (Porcine) (Heparin) 5,000 units SUBQ Q12HR [facility] Stop: 11/28/17 20:59 Last Admin: 09/29/17 20:27 Dose: 5,000 units Metronidazole (Flagyl) 500 mg in 100 mls @ 100 mls/hr IV Q8HR [facility] Stop: 11/27/17 20:59 Last Admin: 09/30/17 04:28 Dose: 100 mls/hr Levofloxacin (Levaquin Pb) 500 mg in 100 mls @ 100 mls/hr IV Q24HR [facility] Stop: 11/28/17 20:59 Last Infusion: 09/29/17 21:21 Dose: Infused Multivitamins/Minerals 10 ml/Amino Acids/ Fat Emulsion Intravenous 1,200 mls @ 50 mls/hr IV .Q24H [facility] Stop: 11/28/17 14:59 Last Admin: 09/29/17 16:58 Dose: 50 mls/hr Dextrose/Sodium Chloride (D5-0.9%Ns) 1,000 mls @ 80 mls/hr IV .[id number] [facility] Stop: 11/28/17 14:59 Last Admin: 09/30/17 04:32 Dose: 80 mls/hr Insulin Aspart (Novolog Insulin Sliding Scale) 0 units SUBQ Q6HR AJIT PRN Reason: Protocol Stop: 11/28/17 17:59 Last Admin: 09/30/17 06:28 Dose: Not Given Magnesium Hydroxide (Milk Of Magnesia) 30 ml GT DAILY PRN PRN Reason: Constipation Stop: 11/27/17 19:31 Methylprednisolone Sodium Succinate (Solu-Medrol) 80 mg IV Q8HR [facility] Stop: 11/27/17 20:59 Last Admin: 09/30/17 05:14 Dose: 80 mg Midodrine (Proamatine) 10 mg GT Q8HR [facility] Stop: 11/28/17 12:59 Last Admin: 09/30/17 05:15 Dose: Not Given Miscellaneous (Tpn Per Pharmacy) 1 [facility] PRN PRN PRN Reason: PROTOCOL Stop: 11/27/17 19:35 Miscellaneous (Vte Chemical Prophylaxis Screen/ Admission) 1 [facility] PRN PRN PRN Reason: PROTOCOL Stop: 11/28/17 09:58 Miscellaneous (Probiotic Screen) 1 [facility] PRN PRN PRN Reason: PROTOCOL Stop: 11/28/17 11:44 Morphine Sulfate (Morphine) 1 mg IVP Q4H PRN PRN Reason: Pain (Severe) Ondansetron HCl (Zofran) 4 mg IV Q8HR PRN PRN Reason: Nausea / Vomiting Stop: 11/27/17 19:31 Pantoprazole Sodium (Protonix) 40 mg IVP DAILY [facility] Stop: 11/29/17 08:59 Zinc Sulfate (Zinc Sulfate) 220 mg GT DAILY [facility] Stop: 11/28/17 08:59 Last Admin: 09/29/17 08:37 Dose: Not Given - Procedures Procedures: Procedures Procedure Code Date BYPASS DESCENDING COLON TO CUTANEOUS, OPEN APPROACH [id number] 08/14/17 COLOSTOMY 22718 08/14/17 CYSTOSCOPY & URETER CATHETER 15028 08/14/17 CECILY BONE 20 SQ CM/< 76696 08/14/17 CECILY SUBQ TISSUE 20 SQ CM/< 44420 09/28/17 DRAINAGE OF BLADDER WITH DRAINAGE DEVICE, ENDO [id number] 08/14/17 EXCISION OF BACK SUBCU/FASCIA, OPEN APPROACH [id number] 09/28/17 EXCISION OF DESCENDING COLON, OPEN APPROACH [id number] 09/28/17 EXCISION OF SACRUM, OPEN APPROACH [id number] 08/14/17 EXTIRPATION OF MATTER FROM BLADDER, ENDO [id number] 08/14/17 PARTIAL REMOVAL OF COLON 94914 09/28/17 Nutritional Asmnt/Malnutr-PDOC - Dietary Evaluation Malnutrition Findings (Please click <Entered> for more info): Nutritional Asmnt/Malnutrition Start: 09/29/17 16: 21 Text: Status: Complete Freq: Document 09/29/17 16:21 HEN (Rec: 09/29/17 16:27 HEN [id number]) Nutritional Asmnt/Malnutrition Patient General Information Nutritional Screening High Risk Consult Diagnosis prolapsed colostomy Pertinent Medical Hx/Surgical Hx HTN, CVA/TIA, PUD/GERD, arthritis, anemia, pultiple sclerosis, decubitus ulcer, PEG/Gtube, colostomy Subjective Information Consult received for stage 4 sacral pressure ulcer. pt had debridement and resection of descending colon today. Pt now on PPN. Current Diet Order/ Nutrition Support PPN D10%, AA4.25%, lip 20% 100ml at 50ml/hr Pertinent Medications D5-0.9%ns at 80ml/hr (326kcal) , novolog, levaquin, zinc Pertinent Labs 09/29 Cr 0.4, glucose 126, POC 137 Nutritional Hx/Data Height 1.65 m Height (Calculated Centimeters) 165.1 Current Weight (lbs) 67.132 kg Weight (Calculated Kilograms) 67.1 Weight (Calculated Grams) 69868.7 [place] Body Weight 136 Body Mass Index (BMI) 24.6 Weight Status Approriate GI Symptoms GI Symptoms None Last BM no record Difficult in: None Skin Integrity/Comment: decubitus ulcer to right toe, left toe and sacrum Current %PO Poor (25-49%) Estimated Nutritional Goals BEE in Kcals: Using Current wt Calories/Kcals/Kg 25-30 Kcals Calculated 4236-5024 Protein: Using Current wt Protein g/k.2-1.4 Protein Calculated 80-94 Fluid: ml 1675-2010ml (1ml/kcal) Nutritional Problem 1. Problem Problem increased nutrition needs ( calorie and protein( Etiology increased metabolic demand Signs/Symptoms: stage 4 pressure ulcer Malnutrition Alert Protein-Calorie Malnutrition N/A Is there a minimum of two criteria No selected? Query Text:Check all the applicable criteria. A minimum of two criteria are recommended for diagnosis of either severe or non-severe malnutrition. Intervention/Recommendation Comments 1. Recommend PPN D10% AA5% Lipid 10% 200ml at 75ml/hr as tolerated. It provides 1372kcal, 180g CCHO (1.8mg/kg/ min), 90g protein, meeting 100 % of nutritional needs with D5 at 80ml/hr. 2. Monitor PPN tolerance, wt daily, skin integrity and labs 3. F/U as high risk in 2-3 days, 10/01-10/02 Expected Outcomes/Goals Expected Outcomes/Goals 1. Pt to meet at least 75% of nutritional needs via nutrition support with tolerance 2. Wt stability, wound to heal , labs to approach WNL.
[2017-09-30] MEDS: Chlorhexidine Gluconate 0.12% 15mL Mouthwash MM SCH (08:58)
[2017-09-30] MEDS: Docusate Sodium 100 mg/10 mL UD GT SCH ×2 (08:59→19:08)
[2017-09-30] MEDS: Multivitamin w/ Minerals Tab GT SCH (08:59)
--- NOTE | 2017-09-30 13:41 | Internal Medicine Prog Note ---
Internal Medicine Subjective - Subjective Service Date: 09/30/17 (remains orally intubated on ventilator, on ppn ) Patient seen and examined:: with staff Patient is:: awake, non-verbal Per staff patient has:: tolerating meds Internal Medicine Objective - Results Result Diagrams: 09/30/17 04:30 09/30/17 04:30 Recent Labs: Laboratory Last Values WBC 13.7 Th/cmm (4.8-10.8) H D 09/30/17 04:30 RBC 3.85 Mil/cmm (4.30-5.70) L 09/30/17 04:30 Hgb 10.5 gm/dL (12-16) L 09/30/17 04:30 Hct 32.0 % (41.0-60) L 09/30/17 04:30 MCV 83.2 fl (80-99) 09/30/17 04:30 MCH 27.3 pg (26.0-30.0) 09/30/17 04:30 MCHC Differential 32.8 pg (28.0-36.0) 09/30/17 04:30 RDW 17.0 % (11.5-20.0) 09/30/17 04:30 Plt Count 354 Th/cmm (150-400) 09/30/17 04:30 MPV 6.8 fl 09/30/17 04:30 Neutrophils % 75.0 % (40.0-80.0) 09/30/17 04:30 Band Neutrophils % 1 % (0-10) 09/28/17 17:35 Lymphocytes % 15.8 % (20.0-50.0) L 09/30/17 04:30 Monocytes % 9.0 % (2.0-10.0) 09/30/17 04:30 Eosinophils % 0.2 % (0.0-5.0) 09/30/17 04:30 Basophils % 0.0 % (0.0-2.0) 09/30/17 04:30 Neutrophils (Manual) 83 % (40-80) H 09/28/17 17:35 Lymphocytes 10 % (20-50) L 09/28/17 17:35 Monocytes 3 % (2-10) 09/28/17 17:35 Eosinophils 0 % (0-5) 09/28/17 17:35 Basophils 0 % (0-3) 09/28/17 17:35 Myelocytes 3 % 09/28/17 17:35 Platelet Estimate INCREASED PLATELETS (NORMAL) 09/28/17 17:35 PT 11.0 SECONDS (9.5-11.5) 09/28/17 17:35 INR 1.06 (0.5-1.4) 09/28/17 17:35 PTT (Actin FS) 27.2 SECONDS (26.0-38.0) 09/28/17 17:35 Specimen Source Arterial 09/29/17 12:58 Sample Site lb 09/29/17 12:58 pH 7.54 (7.35-7.45) H 09/29/17 12:58 pCO2 37.0 mmHg (35.0-45.0) 09/29/17 12:58 pO2 203.0 mmHg (80.0-100.0) H 09/29/17 12:58 HCO3 31.7 mEq/L (20.0-26.0) H 09/29/17 12:58 Base Excess 8.6 mEq/L (-3.0-3.0) H 09/29/17 12:58 O2 Saturation 100.0 % (92.0-100.0) 09/29/17 12:58 Osman Test n/a 09/29/17 12:58 Vent Rate 10 09/29/17 12:58 Inspired O2 50 09/29/17 12:58 Tidal Volume 800 09/29/17 12:58 PEEP 0 09/29/17 12:58 Pressure (ins/psv/peep) n/a 09/29/17 12:58 Critical Value Brynn 09/29/17 12:58 Sodium 133 mEq/L (136-145) L 09/30/17 04:30 Potassium 3.9 mEq/L (3.5-5.1) 09/30/17 04:30 Chloride 98 mEq/L (98-107) 09/30/17 04:30 Carbon Dioxide 28.9 mEq/L (21.0-31.0) 09/30/17 04:30 Anion Gap 10.0 (7.0-16.0) 09/30/17 04:30 BUN 19 mg/dL (7-25) 09/30/17 04:30 Creatinine 0.4 mg/dL (0.7-1.3) L 09/30/17 04:30 Est GFR ( Amer) > 60.0 ml/min (>90) 09/30/17 04:30 Est GFR (Non-Af Amer) > 60.0 ml/min 09/30/17 04:30 BUN/Creatinine Ratio 47.5 09/30/17 04:30 Glucose 137 mg/dL (70-105) H 09/30/17 04:30 POC Glucose 140 MG/DL (70 - 105) H 09/30/17 11:43 Calcium 8.8 mg/dL (8.6-10.3) 09/30/17 04:30 Phosphorus 3.3 mg/dL (2.5-5.0) 09/30/17 04:30 Magnesium 1.8 mg/dL (1.9-2.7) L 09/30/17 04:30 Total Bilirubin 0.2 mg/dL (0.3-1.0) L 09/29/17 06:10 AST 31 U/L (13-39) 09/29/17 06:10 ALT 40 U/L (7-52) 09/29/17 06:10 Alkaline Phosphatase 73 U/L (34-104) 09/29/17 06:10 Creatine Kinase 17 U/L (30-223) L 09/28/17 17:35 Troponin I 0.01 ng/mL (0.01-0.05) 09/28/17 17:35 B-Natriuretic Peptide 13.7 pg/mL (5.0-100.0) 09/28/17 17:35 Total Protein 7.8 gm/dL (6.0-8.3) 09/29/17 06:10 Albumin 3.0 gm/dL (4.2-5.5) L 09/29/17 06:10 Globulin 4.8 gm/dL 09/29/17 06:10 Albumin/Globulin Ratio 0.6 (1.0-1.8) L 09/29/17 06:10 Prealbumin 33 mg/dL (10-36) 09/29/17 06:10 Triglycerides 166 mg/dL (<150) H 09/29/17 06:10 Cholesterol 148 mg/dL (<200) 09/29/17 06:10 LDL Cholesterol Direct 70 mg/dL (75-193) L 09/28/17 17:35 HDL Cholesterol 40 mg/dL (23-92) 09/28/17 17:35 Amylase 79 U/L (29-103) 09/28/17 17:35 Lipase 15 U/L (11-82) 09/28/17 17:35 Urine Source CLEAN C 09/28/17 20:10 Urine Color YELLOW 09/28/17 20:10 Urine Clarity CLEAR (CLEAR) 09/28/17 20:10 Urine pH 8.0 (4.6 - 8.0) 09/28/17 20:10 Ur Specific [place] 1.020 (1.005-1.030) 09/28/17 20:10 Urine Protein NEGATIVE mg/dL (NEGATIVE) 09/28/17 20:10 Urine Glucose (UA) NEGATIVE mg/dL (NEGATIVE) 09/28/17 20:10 Urine Ketones NEGATIVE mg/dL (NEGATIVE) 09/28/17 20:10 Urine Blood TRACE (NEGATIVE) 09/28/17 20:10 Urine Nitrate NEGATIVE (NEGATIVE) 09/28/17 20:10 Urine Bilirubin NEGATIVE (NEGATIVE) 09/28/17 20:10 Urine Urobilinogen 0.2 E.U./dL (0.2 - 1.0) 09/28/17 20:10 Ur Leukocyte Esterase NEGATIVE (NEGATIVE) 09/28/17 20:10 Urine RBC 2-5 /hpf (0-5) H 09/28/17 20:10 Urine WBC 0-2 /hpf (0-5) 09/28/17 20:10 Ur Epithelial Cells RARE /lpf (FEW) 09/28/17 20:10 Amorphous Sediment MANY PHOSPHATES (NONE SEEN) 09/28/17 20:10 Urine Bacteria NONE SEEN /hpf (NONE SEEN) 09/28/17 20:10 - Physical Exam Vitals and I&O: Vital Signs Temp 98.2 F 09/30/17 12:00 Pulse 89 09/30/17 13:00 Resp 12 09/30/17 13:00 BP 126/84 09/30/17 13:00 Pulse Ox 98 09/30/17 13:00 Intake & Output 09/29/17 09/30/17 09/30/17 18:59 06:59 18:59 Intake Total 100 1900 Output Total 650 Balance 100 1250 Weight (lbs) 150 lb 11.2 oz Intake: Intake, IV Amount 100 1300 D5-0.9%Ns 1,000 ml @ 80 1000 mls/hr IV .[id number] [facility] Rx #:[id number] Levofloxacin 500mg/100mL 100 500 mg In 100 ml @ 100 mls/hr IV Q24HR [facility] Rx#: [id number] metroNIDAZOLE 500mg/NS 100 200 100mL 500 mg In 100 ml @ 100 mls/hr IV Q8HR [facility] Rx #:[id number] TPN/PPN 600 Output: Drainage 0 ABDOMEN - SAMANTHA DRAIN 0 Urine 650 Other: # Bowel Movements 0 Weight Source Bedscale Active Medications: Current Medications Acetaminophen (Tylenol 650mg/20.3ml Suspension) 650 mg GT Q4H PRN PRN Reason: pain/temp>101 Stop: 11/27/17 19:31 Acetylcysteine (Mucomyst 20%) 3 ml HHN Q4HRT [facility] Stop: 11/27/17 22:59 Last Admin: 09/29/17 22:17 Dose: Not Given Albuterol/Ipratropium (Duoneb Neb) 3 ml HHN Q4HRT [facility] Stop: 11/27/17 22:59 Last Admin: 09/30/17 07:10 Dose: 3 ml Albuterol/Ipratropium (Duoneb Neb) 3 ml HHN Q2HRT PRN PRN Reason: Shortness of Breath Stop: 11/27/17 19:31 Chlorhexidine Gluconate (Peridex) 15 ml MM 0800,2000 [facility] Stop: 11/28/17 19:59 Last Admin: 09/30/17 08:58 Dose: 15 ml Docusate Sodium (Colace) 250 mg GT BID [facility] Stop: 11/28/17 08:59 Last Admin: 09/30/17 08:59 Dose: Not Given Heparin Sodium (Porcine) (Heparin) 5,000 units SUBQ Q12HR [facility] Stop: 11/28/17 20:59 Last Admin: 09/30/17 08:58 Dose: 5,000 units Metronidazole (Flagyl) 500 mg in 100 mls @ 100 mls/hr IV Q8HR [facility] Stop: 11/27/17 20:59 Last Admin: 09/30/17 12:42 Dose: 100 mls/hr Levofloxacin (Levaquin Pb) 500 mg in 100 mls @ 100 mls/hr IV Q24HR [facility] Stop: 11/28/17 20:59 Last Infusion: 09/29/17 21:21 Dose: Infused Dextrose/Sodium Chloride (D5-0.9%Ns) 1,000 mls @ 80 mls/hr IV .[id number] [facility] Stop: 11/28/17 14:59 Last Admin: 09/30/17 04:32 Dose: 80 mls/hr Multivitamins/Minerals 10 ml/Dextrose/ Amino Acids/Electrolytes/ Fat Emulsion Intravenous 1,200 mls @ 50 mls/hr IV .Q24H [facility] Stop: 10/29/17 14:59 Insulin Aspart (Novolog Insulin Sliding Scale) 0 units SUBQ Q6HR AJIT PRN Reason: Protocol Stop: 11/28/17 17:59 Last Admin: 09/30/17 12:28 Dose: Not Given Magnesium Hydroxide (Milk Of Magnesia) 30 ml GT DAILY PRN PRN Reason: Constipation Stop: 11/27/17 19:31 Methylprednisolone Sodium Succinate (Solu-Medrol) 80 mg IV Q8HR [facility] Stop: 11/27/17 20:59 Last Admin: 09/30/17 12:42 Dose: 80 mg Midodrine (Proamatine) 10 mg GT Q8HR [facility] Stop: 11/28/17 12:59 Last Admin: 09/30/17 12:43 Dose: Not Given Miscellaneous (Tpn Per Pharmacy) 1 [facility] PRN PRN PRN Reason: PROTOCOL Stop: 11/27/17 19:35 Miscellaneous (Vte Chemical Prophylaxis Screen/ Admission) 1 [facility] PRN PRN PRN Reason: PROTOCOL Stop: 11/28/17 09:58 Miscellaneous (Probiotic Screen) 1 [facility] PRN PRN PRN Reason: PROTOCOL Stop: 11/28/17 11:44 Morphine Sulfate (Morphine) 1 mg IVP Q4H PRN PRN Reason: Pain (Severe) Ondansetron HCl (Zofran) 4 mg IV Q8HR PRN PRN Reason: Nausea / Vomiting Stop: 11/27/17 19:31 Pantoprazole Sodium (Protonix) 40 mg IVP DAILY [facility] Stop: 11/29/17 08:59 Last Admin: 09/30/17 08:59 Dose: 40 mg Zinc Sulfate (Zinc Sulfate) 220 mg GT DAILY [facility] Stop: 11/28/17 08:59 Last Admin: 09/30/17 08:59 Dose: Not Given General: weak HEENT: NC/AT, PERRLA Neck: Supple Lungs: ronchi Cardiovascular: RRR, Normal S1, Normal S2, without murmur Abdomen: soft, non-distended, positive bowel sound Extremities: excoriation, other (sacral ulcer) Neurological: unable to follow command - Procedures Procedures: Procedures Procedure Code Date BYPASS DESCENDING COLON TO CUTANEOUS, OPEN APPROACH [id number] 08/14/17 COLOSTOMY 64211 08/14/17 CYSTOSCOPY & URETER CATHETER 87434 08/14/17 CECILY BONE 20 SQ CM/< [id number] 08/14/17 CECILY SUBQ TISSUE 20 SQ CM/< [id number] 09/28/17 DRAINAGE OF BLADDER WITH DRAINAGE DEVICE, ENDO [id number] 08/14/17 EXCISION OF BACK SUBCU/FASCIA, OPEN APPROACH [id number] 09/28/17 EXCISION OF DESCENDING COLON, OPEN APPROACH [id number] 09/28/17 EXCISION OF SACRUM, OPEN APPROACH [id number] 08/14/17 EXTIRPATION OF MATTER FROM BLADDER, ENDO [id number] 08/14/17 PARTIAL REMOVAL OF COLON [id number] 09/28/17 Internal Medicine Assmt/Plan - Assessment Assessment: -prolapsed colostomy s/p exploratory laparotomy, resection of descending colon and side to side anastomosis -s/p excisional debridement of sacral decubitus ulceration with wound vac - s/pexcisional debridement of right foot ulcer -s/p excisional debridement left foot ulcer -acute uti -multiple sclerosis -schizophrenia - Plan Plan: continue with wound care ppn for nutritional support continue ventilator support, pulmo is following will await for extubation cbc/bmp in am continue ivabx continue current plan of care Nutritional Asmnt/Malnutr-PDOC - Dietary Evaluation Malnutrition Findings (Please click <Entered> for more info): Nutritional Asmnt/Malnutrition Start: 09/29/17 16: 21 Text: Status: Complete Freq: Document 09/29/17 16:21 ALONDRA (Rec: 09/29/17 16:27 ALONDRA [id number]) Nutritional Asmnt/Malnutrition Patient General Information Nutritional Screening High Risk Consult Diagnosis prolapsed colostomy Pertinent Medical Hx/Surgical Hx HTN, CVA/TIA, PUD/GERD, arthritis, anemia, pultiple sclerosis, decubitus ulcer, PEG/Gtube, colostomy Subjective Information Consult received for stage 4 sacral pressure ulcer. pt had debridement and resection of descending colon today. Pt now on PPN. Current Diet Order/ Nutrition Support PPN D10%, AA4.25%, lip 20% 100ml at 50ml/hr Pertinent Medications D5-0.9%ns at 80ml/hr (326kcal) , novolog, levaquin, zinc Pertinent Labs 09/29 Cr 0.4, glucose 126, POC 137 Nutritional Hx/Data Height 5 ft 5 in Height (Calculated Centimeters) 165.1 Current Weight (lbs) 148 lb Weight (Calculated Kilograms) 67.1 Weight (Calculated Grams) 38662.7 [place] Body Weight 136 Body Mass Index (BMI) 24.6 Weight Status Approriate GI Symptoms GI Symptoms None Last BM no record Difficult in: None Skin Integrity/Comment: decubitus ulcer to right toe, left toe and sacrum Current %PO Poor (25-49%) Estimated Nutritional Goals BEE in Kcals: Using Current wt Calories/Kcals/Kg 25-30 Kcals Calculated 2892-4666 Protein: Using Current wt Protein g/k.2-1.4 Protein Calculated 80-94 Fluid: ml 1675-2010ml (1ml/kcal) Nutritional Problem 1. Problem Problem increased nutrition needs ( calorie and protein( Etiology increased metabolic demand Signs/Symptoms: stage 4 pressure ulcer Malnutrition Alert Protein-Calorie Malnutrition N/A Is there a minimum of two criteria No selected? Query Text:Check all the applicable criteria. A minimum of two criteria are recommended for diagnosis of either severe or non-severe malnutrition. Intervention/Recommendation Comments 1. Recommend PPN D10% AA5% Lipid 10% 200ml at 75ml/hr as tolerated. It provides 1372kcal, 180g CCHO (1.8mg/kg/ min), 90g protein, meeting 100 % of nutritional needs with D5 at 80ml/hr. 2. Monitor PPN tolerance, wt daily, skin integrity and labs 3. F/U as high risk in 2-3 days, 10/01-10/02 Expected Outcomes/Goals Expected Outcomes/Goals 1. Pt to meet at least 75% of nutritional needs via nutrition support with tolerance 2. Wt stability, wound to heal , labs to approach WNL.
[2017-09-30] MEDS: TPN 8.5%-70% CUSTOM IV SCH (15:05)
--- NOTE | 2017-09-30 15:33 | Pathology Report ---
[id number] Collection Date: 09/29/2017 Surgeon: Dr. Randy Carrera Specimen Description: 1. Segment of descending colon 2. Sacral debridement Gross Description: Part I: Received in formalin is a 19 cm in length x 4.5 cm in outer diameter segment of colon with a small amount of attached yellow fatty tissue seen on an otherwise smooth, glistening outer serosal surface. Opening the specimen reveals a segment of unremarkable appearing colon with the usual folded, grossman mucosal pattern and an intact muscular wall. There are no focal lesions and no evidence for adhesions or perforation. Production Line Manager sections are submitted in three cassettes labeled A1 to A3. Gross Description: Part II: Received in formalin is a 2.5 x 0.8 x 0.4 cm portion of degenerated, grossman-thomas, necrotic soft tissue. Production Line Manager sections are submitted in one cassette labeled B. Microscopic Description: Part I: The histologic sections show portions of colon with an intact mucosa and muscular wall with no significant pathologic changes appreciated. Diagnosis: Part I: Segment of colon consistent with the clinical impression of prolapsed colostomy site (descending colon segment). Microscopic Description: Part II: The histologic sections show ulcerated, necrotic soft tissue with extensive suppurative inflammation consisting of large collections of neutrophils with a very degenerated and necrotic background. Diagnosis: Part II: Ulcerated, necrotic tissue consistent with debridement of sacral decubitus ulcer. [facility]# [id number] [facility]
[2017-09-30 16:07] LABS: pH 7.47 (7.35-7.45)
[2017-09-30 16:08] LABS: ALLEN TEST yes
[2017-09-30] MEDS: D5-0.45NS 1,000 ML IV SCH (16:57)
[2017-09-30] MEDS: Levofloxacin 500mg/100mL Premix Bag IV SCH (20:22)
[2017-10-01] MEDS: INSULIN ASPART SLIDING SCALE 100 UNITS/ML UNIT SUBQ SCH ×4 (00:13→17:27)
[2017-10-01] MEDS: Albuterol/Ipratropium Neb 3 ML AERS HHN SCH ×6 (02:33→23:48)
[2017-10-01] MEDS: metroNIDAZOLE 500mg/NS 100mL 500 MG/100 ML BAG IV SCH ×3 (04:39→23:22)
[2017-10-01 05:34] LABS: % BASOPHILS 0.9 % (0.0-2.0); % EOSINOPHILS 0.2 % (0.0-5.0); % LYMPHOCYTES 16.1 % (20.0-50.0); % NEUTROPHILS 69.8 % (40.0-80.0); BASOPHILE ABSOLUTE 0.1 Th/cumm (0-0.2); HEMOGLOBIN 10.3 gm/dL (12-16); LYMPHOCYTE ABSOLUTE 1.8 Th/cmm (1.5-3.0); MEAN CELL VOLUME 84.1 fl (80-99); MEAN CORPUSCULAR HEMOGLOBIN 27.2 pg (26.0-30.0); MEAN CORPUSCULAR HGB CONC 32.3 pg (28.0-36.0); MEAN PLATELET VOLUME 7.7 fl; MONOCYTE ABSOLUTE 1.5 Th/cmm (0.3-1.0); PLATELET COUNT 330 Th/cmm (150-400); RED BLOOD COUNT 3.81 Mil/cmm (4.30-5.70); RED CELL DISTRIBUTION WIDTH 17.9 % (11.5-20.0); WHITE BLOOD COUNT 11.4 Th/cmm (4.8-10.8)
[2017-10-01 05:56] LABS: ALB/GLOB RATIO 0.7 (1.0-1.8); ALBUMIN 2.8 gm/dL (4.2-5.5); ALKALINE PHOSPHATASE 64 U/L (34-104); ANION GAP 10.5 (7.0-16.0); BILIRUBIN,TOTAL 0.3 mg/dL (0.3-1.0); BUN - UREA NITROGEN 12 mg/dL (7-25); CALCIUM SERUM 9.1 mg/dL (8.6-10.3); CARBON DIOXIDE 28.3 mEq/L (21.0-31.0); CHLORIDE 100 mEq/L (98-107); CREATININE - SERUM 0.3 mg/dL (0.7-1.3); GFR AFRICAN-AMERICAN > 60.0 ml/min (>90); GFR NON AFRICAN-AMERICAN > 60.0 ml/min; GLUCOSE 125 mg/dL (70-105); MAGNESIUM 1.9 mg/dL (1.9-2.7); PHOSPHOROUS 3.2 mg/dL (2.5-5.0); POTASSIUM SERUM 3.8 mEq/L (3.5-5.1); SGOT 12 U/L (13-39); SGPT/ALT 23 U/L (7-52); SODIUM SERUM 135 mEq/L (136-145); TOTAL PROTEIN,SERUM 7.1 gm/dL (6.0-8.3)
[2017-10-01] MEDS: Docusate Sodium 100 mg/10 mL UD GT SCH ×2 (10:34→17:15)
[2017-10-01] MEDS ORDERED: Albuterol/Ipratropium Neb 3 ML AERS HHN ONE (12:42)
--- NOTE | 2017-10-01 14:28 | General Progress Note ---
Subjective - Review of Systems Service Date: 10/01/17 Events since last encounter: labs ok extubated yesterday may start oral intake Objective - Results Result Diagrams: 10/01/17 04:30 10/01/17 04:30 Recent Labs: Laboratory Last Values WBC 11.4 Th/cmm (4.8-10.8) H 10/01/17 04:30 RBC 3.81 Mil/cmm (4.30-5.70) L 10/01/17 04:30 Hgb 10.3 gm/dL (12-16) L 10/01/17 04:30 Hct 32.0 % (41.0-60) L 10/01/17 04:30 MCV 84.1 fl (80-99) 10/01/17 04:30 MCH 27.2 pg (26.0-30.0) 10/01/17 04:30 MCHC Differential 32.3 pg (28.0-36.0) 10/01/17 04:30 RDW 17.9 % (11.5-20.0) 10/01/17 04:30 Plt Count 330 Th/cmm (150-400) 10/01/17 04:30 MPV 7.7 fl 10/01/17 04:30 Neutrophils % 69.8 % (40.0-80.0) 10/01/17 04:30 Band Neutrophils % 1 % (0-10) 09/28/17 17:35 Lymphocytes % 16.1 % (20.0-50.0) L 10/01/17 04:30 Monocytes % 13.0 % (2.0-10.0) H 10/01/17 04:30 Eosinophils % 0.2 % (0.0-5.0) 10/01/17 04:30 Basophils % 0.9 % (0.0-2.0) 10/01/17 04:30 Neutrophils (Manual) 83 % (40-80) H 09/28/17 17:35 Lymphocytes 10 % (20-50) L 09/28/17 17:35 Monocytes 3 % (2-10) 09/28/17 17:35 Eosinophils 0 % (0-5) 09/28/17 17:35 Basophils 0 % (0-3) 09/28/17 17:35 Myelocytes 3 % 09/28/17 17:35 Platelet Estimate INCREASED PLATELETS (NORMAL) 09/28/17 17:35 PT 11.0 SECONDS (9.5-11.5) 09/28/17 17:35 INR 1.06 (0.5-1.4) 09/28/17 17:35 PTT (Actin FS) 27.2 SECONDS (26.0-38.0) 09/28/17 17:35 Specimen Source Arterial 09/30/17 15:55 Sample Site Left Radial 09/30/17 15:55 pH 7.47 (7.35-7.45) H 09/30/17 15:55 pCO2 39.0 mmHg (35.0-45.0) 09/30/17 15:55 pO2 195.0 mmHg (80.0-100.0) H 09/30/17 15:55 HCO3 28.4 mEq/L (20.0-26.0) H 09/30/17 15:55 Base Excess 4.4 mEq/L (-3.0-3.0) H 09/30/17 15:55 O2 Saturation 100.0 % (92.0-100.0) 09/30/17 15:55 Osman Test yes 09/30/17 15:55 Vent Rate n/a 09/30/17 15:55 Inspired O2 40 09/30/17 15:55 Tidal Volume n/a 09/30/17 15:55 PEEP n/a 09/30/17 15:55 Pressure (ins/psv/peep) n/a 09/30/17 15:55 Critical Value emeka 09/30/17 15:55 Sodium 135 mEq/L (136-145) L 10/01/17 04:30 Potassium 3.8 mEq/L (3.5-5.1) 10/01/17 04:30 Chloride 100 mEq/L (98-107) 10/01/17 04:30 Carbon Dioxide 28.3 mEq/L (21.0-31.0) 10/01/17 04:30 Anion Gap 10.5 (7.0-16.0) 10/01/17 04:30 BUN 12 mg/dL (7-25) 10/01/17 04:30 Creatinine 0.3 mg/dL (0.7-1.3) L 10/01/17 04:30 Est GFR ( Amer) > 60.0 ml/min (>90) 10/01/17 04:30 Est GFR (Non-Af Amer) > 60.0 ml/min 10/01/17 04:30 BUN/Creatinine Ratio 40.0 10/01/17 04:30 Glucose 125 mg/dL (70-105) H 10/01/17 04:30 POC Glucose 140 MG/DL (70 - 105) H 10/01/17 05:34 Calcium 9.1 mg/dL (8.6-10.3) 10/01/17 04:30 Phosphorus 3.2 mg/dL (2.5-5.0) 10/01/17 04:30 Magnesium 1.9 mg/dL (1.9-2.7) 10/01/17 04:30 Total Bilirubin 0.3 mg/dL (0.3-1.0) 10/01/17 04:30 AST 12 U/L (13-39) L 10/01/17 04:30 ALT 23 U/L (7-52) 10/01/17 04:30 Alkaline Phosphatase 64 U/L (34-104) 10/01/17 04:30 Creatine Kinase 17 U/L (30-223) L 09/28/17 17:35 Troponin I 0.01 ng/mL (0.01-0.05) 09/28/17 17:35 B-Natriuretic Peptide 13.7 pg/mL (5.0-100.0) 09/28/17 17:35 Total Protein 7.1 gm/dL (6.0-8.3) 10/01/17 04:30 Albumin 2.8 gm/dL (4.2-5.5) L 10/01/17 04:30 Globulin 4.3 gm/dL 10/01/17 04:30 Albumin/Globulin Ratio 0.7 (1.0-1.8) L 10/01/17 04:30 Prealbumin 33 mg/dL (10-36) 09/29/17 06:10 Triglycerides 166 mg/dL (<150) H 09/29/17 06:10 Cholesterol 148 mg/dL (<200) 09/29/17 06:10 LDL Cholesterol Direct 70 mg/dL (75-193) L 09/28/17 17:35 HDL Cholesterol 40 mg/dL (23-92) 09/28/17 17:35 Amylase 79 U/L (29-103) 09/28/17 17:35 Lipase 15 U/L (11-82) 09/28/17 17:35 Urine Source CLEAN C 09/28/17 20:10 Urine Color YELLOW 09/28/17 20:10 Urine Clarity CLEAR (CLEAR) 09/28/17 20:10 Urine pH 8.0 (4.6 - 8.0) 09/28/17 20:10 Ur Specific Eldred 1.020 (1.005-1.030) 09/28/17 20:10 Urine Protein NEGATIVE mg/dL (NEGATIVE) 09/28/17 20:10 Urine Glucose (UA) NEGATIVE mg/dL (NEGATIVE) 09/28/17 20:10 Urine Ketones NEGATIVE mg/dL (NEGATIVE) 09/28/17 20:10 Urine Blood TRACE (NEGATIVE) 09/28/17 20:10 Urine Nitrate NEGATIVE (NEGATIVE) 09/28/17 20:10 Urine Bilirubin NEGATIVE (NEGATIVE) 09/28/17 20:10 Urine Urobilinogen 0.2 E.U./dL (0.2 - 1.0) 09/28/17 20:10 Ur Leukocyte Esterase NEGATIVE (NEGATIVE) 09/28/17 20:10 Urine RBC 2-5 /hpf (0-5) H 09/28/17 20:10 Urine WBC 0-2 /hpf (0-5) 09/28/17 20:10 Ur Epithelial Cells RARE /lpf (FEW) 09/28/17 20:10 Amorphous Sediment MANY PHOSPHATES (NONE SEEN) 09/28/17 20:10 Urine Bacteria NONE SEEN /hpf (NONE SEEN) 09/28/17 20:10 - Physical Exam Vitals and I&O: Vital Signs Temp 97.8 F 10/01/17 12:00 Pulse 96 10/01/17 14:00 Resp 14 10/01/17 14:00 BP 113/73 10/01/17 14:00 Pulse Ox 97 10/01/17 14:00 Intake & Output 09/30/17 10/01/17 10/01/17 18:59 06:59 18:59 Intake Total 700 1607.833 Output Total 920 2200 600 Balance -220 -592.167 -600 Weight (lbs) 68.039 kg 67.404 kg 67.404 kg Intake: Intake, IV Amount 100 1607.833 D5-0.45NS 1,000 ml @ 40 522 mls/hr IV .Q24H [facility] Rx#: [id number] Levofloxacin 500mg/100mL 100 500 mg In 100 ml @ 100 mls/hr IV Q24HR [facility] Rx#: [id number] Multivitamin Inj 10 ml In 785.833 Dextrose 70% 500 ml In Amino Acids 8.5% 590 ml In Intralipids 20% 100 ml @ 50 mls/hr IV .Q24H [facility] Rx#:[id number] metroNIDAZOLE 500mg/NS 100 200 100mL 500 mg In 100 ml @ 100 mls/hr IV Q8HR [facility] Rx #:[id number] TPN/PPN 600 Output: Drainage 20 WOUND VAC - SACRUM 20 Urine 900 2200 600 Other: # Bowel Movements 0 Weight Source Bedscale Bedscale Bedscale Active Medications: Current Medications Acetaminophen (Tylenol 650mg/20.3ml Suspension) 650 mg GT Q4H PRN PRN Reason: pain/temp>101 Stop: 11/27/17 19:31 Acetylcysteine (Mucomyst 20%) 3 ml HHN Q4HRT [facility] Stop: 11/27/17 22:59 Last Admin: 10/01/17 08:04 Dose: Not Given Albuterol/Ipratropium (Duoneb Neb) 3 ml HHN Q4HRT [facility] Stop: 11/27/17 22:59 Last Admin: 10/01/17 12:10 Dose: 3 ml Albuterol/Ipratropium (Duoneb Neb) 3 ml HHN Q2HRT PRN PRN Reason: Shortness of Breath Stop: 11/27/17 19:31 Docusate Sodium (Colace) 250 mg GT BID [facility] Stop: 11/28/17 08:59 Last Admin: 10/01/17 10:34 Dose: Not Given Heparin Sodium (Porcine) (Heparin) 5,000 units SUBQ Q12HR [facility] Stop: 11/28/17 20:59 Last Admin: 10/01/17 11:40 Dose: 5,000 units Metronidazole (Flagyl) 500 mg in 100 mls @ 100 mls/hr IV Q8HR [facility] Stop: 11/27/17 20:59 Last Infusion: 10/01/17 05:47 Dose: Infused Levofloxacin (Levaquin Pb) 500 mg in 100 mls @ 100 mls/hr IV Q24HR [facility] Stop: 11/28/17 20:59 Last Infusion: 09/30/17 21:22 Dose: Infused Multivitamins/Minerals 10 ml/Dextrose/ Amino Acids/Electrolytes/ Fat Emulsion Intravenous 1,200 mls @ 50 mls/hr IV .Q24H [facility] Stop: 10/01/17 16:00 Last Infusion: 10/01/17 06:48 Dose: 50 mls/hr Dextrose/Sodium Chloride (D5-0.45ns) 1,000 mls @ 40 mls/hr IV .Q24H [facility] Stop: 10/01/17 16:00 Last Infusion: 10/01/17 06:00 Dose: 40 mls/hr Sodium Chloride (Nacl 0.9%) 1,000 mls @ 20 mls/hr IV .Q24H [facility] Stop: 11/30/17 15:59 Multivitamins/Minerals 10 ml/Dextrose/ Amino Acids/Electrolytes/ Fat Emulsion Intravenous 1,400 mls @ 50 mls/hr IV .Q24H [facility] Stop: 10/29/17 14:59 Insulin Aspart (Novolog Insulin Sliding Scale) 0 units SUBQ Q6HR AJIT PRN Reason: Protocol Stop: 11/28/17 17:59 Last Admin: 10/01/17 12:01 Dose: 2 units Magnesium Hydroxide (Milk Of Magnesia) 30 ml GT DAILY PRN PRN Reason: Constipation Stop: 11/27/17 19:31 Methylprednisolone Sodium Succinate (Solu-Medrol) 60 mg IV Q8HR [facility] Stop: 11/29/17 14:55 Last Admin: 10/01/17 04:42 Dose: 60 mg Midodrine (Proamatine) 10 mg GT Q8HR [facility] Stop: 11/28/17 12:59 Last Admin: 10/01/17 14:16 Dose: Not Given Miscellaneous (Tpn Per Pharmacy) 1 ea PRN PRN PRN Reason: PROTOCOL Stop: 11/27/17 19:35 Miscellaneous (Vte Chemical Prophylaxis Screen/ Admission) 1 ea PRN PRN PRN Reason: PROTOCOL Stop: 11/28/17 09:58 Miscellaneous (Probiotic Screen) 1 ea PRN PRN PRN Reason: PROTOCOL Stop: 11/28/17 11:44 Morphine Sulfate (Morphine) 1 mg IVP Q4H PRN PRN Reason: Pain (Severe) Ondansetron HCl (Zofran) 4 mg IV Q8HR PRN PRN Reason: Nausea / Vomiting Stop: 11/27/17 19:31 Pantoprazole Sodium (Protonix) 40 mg IVP DAILY [facility] Stop: 11/29/17 08:59 Last Admin: 10/01/17 11:40 Dose: 40 mg Zinc Sulfate (Zinc Sulfate) 220 mg GT DAILY [facility] Stop: 11/28/17 08:59 Last Admin: 10/01/17 10:34 Dose: Not Given - Procedures Procedures: Procedures Procedure Code Date BYPASS DESCENDING COLON TO CUTANEOUS, OPEN APPROACH [id number] 08/14/17 COLOSTOMY 42065 08/14/17 CYSTOSCOPY & URETER CATHETER 39470 08/14/17 CECILY BONE 20 SQ CM/< 40394 08/14/17 CEICLY SUBQ TISSUE 20 SQ CM/< 88034 09/28/17 DRAINAGE OF BLADDER WITH DRAINAGE DEVICE, ENDO [id number] 08/14/17 EXCISION OF BACK SUBCU/FASCIA, OPEN APPROACH [id number] 09/28/17 EXCISION OF DESCENDING COLON, OPEN APPROACH [id number] 09/28/17 EXCISION OF SACRUM, OPEN APPROACH [id number] 08/14/17 EXTIRPATION OF MATTER FROM BLADDER, ENDO [id number] 08/14/17 PARTIAL REMOVAL OF COLON 51639 09/28/17 Nutritional Asmnt/Malnutr-PDOC - Dietary Evaluation Malnutrition Findings (Please click <Entered> for more info): Nutritional Asmnt/Malnutrition Start: 09/29/17 16: 21 Text: Status: Complete Freq: Document 09/29/17 16:21 [facility] (Rec: 09/29/17 16:27 [facility] [id number]) Nutritional Asmnt/Malnutrition Patient General Information Nutritional Screening High Risk Consult Diagnosis prolapsed colostomy Pertinent Medical Hx/Surgical Hx HTN, CVA/TIA, PUD/GERD, arthritis, anemia, pultiple sclerosis, decubitus ulcer, PEG/Gtube, colostomy Subjective Information Consult received for stage 4 sacral pressure ulcer. pt had debridement and resection of descending colon today. Pt now on PPN. Current Diet Order/ Nutrition Support PPN D10%, AA4.25%, lip 20% 100ml at 50ml/hr Pertinent Medications D5-0.9%ns at 80ml/hr (326kcal) , novolog, levaquin, zinc Pertinent Labs 09/29 Cr 0.4, glucose 126, POC 137 Nutritional Hx/Data Height 1.65 m Height (Calculated Centimeters) 165.1 Current Weight (lbs) 67.132 kg Weight (Calculated Kilograms) 67.1 Weight (Calculated Grams) 86188.7 [place] Body Weight 136 Body Mass Index (BMI) 24.6 Weight Status Approriate GI Symptoms GI Symptoms None Last BM no record Difficult in: None Skin Integrity/Comment: decubitus ulcer to right toe, left toe and sacrum Current %PO Poor (25-49%) Estimated Nutritional Goals BEE in Kcals: Using Current wt Calories/Kcals/Kg 25-30 Kcals Calculated 9285-4813 Protein: Using Current wt Protein g/k.2-1.4 Protein Calculated 80-94 Fluid: ml 1675-2010ml (1ml/kcal) Nutritional Problem 1. Problem Problem increased nutrition needs ( calorie and protein( Etiology increased metabolic demand Signs/Symptoms: stage 4 pressure ulcer Malnutrition Alert Protein-Calorie Malnutrition N/A Is there a minimum of two criteria No selected? Query Text:Check all the applicable criteria. A minimum of two criteria are recommended for diagnosis of either severe or non-severe malnutrition. Intervention/Recommendation Comments 1. Recommend PPN D10% AA5% Lipid 10% 200ml at 75ml/hr as tolerated. It provides 1372kcal, 180g CCHO (1.8mg/kg/ min), 90g protein, meeting 100 % of nutritional needs with D5 at 80ml/hr. 2. Monitor PPN tolerance, wt daily, skin integrity and labs 3. F/U as high risk in 2-3 days, 10/01-10/02 Expected Outcomes/Goals Expected Outcomes/Goals 1. Pt to meet at least 75% of nutritional needs via nutrition support with tolerance 2. Wt stability, wound to heal , labs to approach WNL.
--- NOTE | 2017-10-01 15:11 | Internal Medicine Prog Note ---
Internal Medicine Subjective - Subjective Patient seen and examined:: with staff, chart reviewed Patient is:: awake, verbal, interactive, in bed, talking, stares blankly Patient Complaints of:: congestion Per staff patient has:: no adverse event, noncompliant, tolerating meds Internal Medicine Objective - Results Result Diagrams: 10/01/17 04:30 10/01/17 04:30 Recent Labs: Laboratory Last Values WBC 11.4 Th/cmm (4.8-10.8) H 10/01/17 04:30 RBC 3.81 Mil/cmm (4.30-5.70) L 10/01/17 04:30 Hgb 10.3 gm/dL (12-16) L 10/01/17 04:30 Hct 32.0 % (41.0-60) L 10/01/17 04:30 MCV 84.1 fl (80-99) 10/01/17 04:30 MCH 27.2 pg (26.0-30.0) 10/01/17 04:30 MCHC Differential 32.3 pg (28.0-36.0) 10/01/17 04:30 RDW 17.9 % (11.5-20.0) 10/01/17 04:30 Plt Count 330 Th/cmm (150-400) 10/01/17 04:30 MPV 7.7 fl 10/01/17 04:30 Neutrophils % 69.8 % (40.0-80.0) 10/01/17 04:30 Band Neutrophils % 1 % (0-10) 09/28/17 17:35 Lymphocytes % 16.1 % (20.0-50.0) L 10/01/17 04:30 Monocytes % 13.0 % (2.0-10.0) H 10/01/17 04:30 Eosinophils % 0.2 % (0.0-5.0) 10/01/17 04:30 Basophils % 0.9 % (0.0-2.0) 10/01/17 04:30 Neutrophils (Manual) 83 % (40-80) H 09/28/17 17:35 Lymphocytes 10 % (20-50) L 09/28/17 17:35 Monocytes 3 % (2-10) 09/28/17 17:35 Eosinophils 0 % (0-5) 09/28/17 17:35 Basophils 0 % (0-3) 09/28/17 17:35 Myelocytes 3 % 09/28/17 17:35 Platelet Estimate INCREASED PLATELETS (NORMAL) 09/28/17 17:35 PT 11.0 SECONDS (9.5-11.5) 09/28/17 17:35 INR 1.06 (0.5-1.4) 09/28/17 17:35 PTT (Actin FS) 27.2 SECONDS (26.0-38.0) 09/28/17 17:35 Specimen Source Arterial 09/30/17 15:55 Sample Site Left Radial 09/30/17 15:55 pH 7.47 (7.35-7.45) H 09/30/17 15:55 pCO2 39.0 mmHg (35.0-45.0) 09/30/17 15:55 pO2 195.0 mmHg (80.0-100.0) H 09/30/17 15:55 HCO3 28.4 mEq/L (20.0-26.0) H 09/30/17 15:55 Base Excess 4.4 mEq/L (-3.0-3.0) H 09/30/17 15:55 O2 Saturation 100.0 % (92.0-100.0) 09/30/17 15:55 Osman Test yes 09/30/17 15:55 Vent Rate n/a 09/30/17 15:55 Inspired O2 40 09/30/17 15:55 Tidal Volume n/a 09/30/17 15:55 PEEP n/a 09/30/17 15:55 Pressure (ins/psv/peep) n/a 09/30/17 15:55 Critical Value [email or web address] 09/30/17 15:55 Sodium 135 mEq/L (136-145) L 10/01/17 04:30 Potassium 3.8 mEq/L (3.5-5.1) 10/01/17 04:30 Chloride 100 mEq/L (98-107) 10/01/17 04:30 Carbon Dioxide 28.3 mEq/L (21.0-31.0) 10/01/17 04:30 Anion Gap 10.5 (7.0-16.0) 10/01/17 04:30 BUN 12 mg/dL (7-25) 10/01/17 04:30 Creatinine 0.3 mg/dL (0.7-1.3) L 10/01/17 04:30 Est GFR ( Amer) > 60.0 ml/min (>90) 10/01/17 04:30 Est GFR (Non-Af Amer) > 60.0 ml/min 10/01/17 04:30 BUN/Creatinine Ratio 40.0 10/01/17 04:30 Glucose 125 mg/dL (70-105) H 10/01/17 04:30 POC Glucose 140 MG/DL (70 - 105) H 10/01/17 05:34 Calcium 9.1 mg/dL (8.6-10.3) 10/01/17 04:30 Phosphorus 3.2 mg/dL (2.5-5.0) 10/01/17 04:30 Magnesium 1.9 mg/dL (1.9-2.7) 10/01/17 04:30 Total Bilirubin 0.3 mg/dL (0.3-1.0) 10/01/17 04:30 AST 12 U/L (13-39) L 10/01/17 04:30 ALT 23 U/L (7-52) 10/01/17 04:30 Alkaline Phosphatase 64 U/L (34-104) 10/01/17 04:30 Creatine Kinase 17 U/L (30-223) L 09/28/17 17:35 Troponin I 0.01 ng/mL (0.01-0.05) 09/28/17 17:35 B-Natriuretic Peptide 13.7 pg/mL (5.0-100.0) 09/28/17 17:35 Total Protein 7.1 gm/dL (6.0-8.3) 10/01/17 04:30 Albumin 2.8 gm/dL (4.2-5.5) L 10/01/17 04:30 Globulin 4.3 gm/dL 10/01/17 04:30 Albumin/Globulin Ratio 0.7 (1.0-1.8) L 10/01/17 04:30 Prealbumin 33 mg/dL (10-36) 09/29/17 06:10 Triglycerides 166 mg/dL (<150) H 09/29/17 06:10 Cholesterol 148 mg/dL (<200) 09/29/17 06:10 LDL Cholesterol Direct 70 mg/dL (75-193) L 09/28/17 17:35 HDL Cholesterol 40 mg/dL (23-92) 09/28/17 17:35 Amylase 79 U/L (29-103) 09/28/17 17:35 Lipase 15 U/L (11-82) 09/28/17 17:35 Urine Source CLEAN C 09/28/17 20:10 Urine Color YELLOW 09/28/17 20:10 Urine Clarity CLEAR (CLEAR) 09/28/17 20:10 Urine pH 8.0 (4.6 - 8.0) 09/28/17 20:10 Ur Specific [place] 1.020 (1.005-1.030) 09/28/17 20:10 Urine Protein NEGATIVE mg/dL (NEGATIVE) 09/28/17 20:10 Urine Glucose (UA) NEGATIVE mg/dL (NEGATIVE) 09/28/17 20:10 Urine Ketones NEGATIVE mg/dL (NEGATIVE) 09/28/17 20:10 Urine Blood TRACE (NEGATIVE) 09/28/17 20:10 Urine Nitrate NEGATIVE (NEGATIVE) 09/28/17 20:10 Urine Bilirubin NEGATIVE (NEGATIVE) 09/28/17 20:10 Urine Urobilinogen 0.2 E.U./dL (0.2 - 1.0) 09/28/17 20:10 Ur Leukocyte Esterase NEGATIVE (NEGATIVE) 09/28/17 20:10 Urine RBC 2-5 /hpf (0-5) H 09/28/17 20:10 Urine WBC 0-2 /hpf (0-5) 09/28/17 20:10 Ur Epithelial Cells RARE /lpf (FEW) 09/28/17 20:10 Amorphous Sediment MANY PHOSPHATES (NONE SEEN) 09/28/17 20:10 Urine Bacteria NONE SEEN /hpf (NONE SEEN) 09/28/17 20:10 - Physical Exam Vitals and I&O: Vital Signs Temp 97.8 F 10/01/17 12:00 Pulse 95 10/01/17 15:07 Resp 18 10/01/17 15:07 BP 113/73 10/01/17 14:00 Pulse Ox 99 10/01/17 15:07 Intake & Output 09/30/17 10/01/17 10/01/17 18:59 06:59 18:59 Intake Total 700 1607.833 Output Total 920 2200 600 Balance -220 -592.167 -600 Weight (lbs) 68.039 kg 67.404 kg 67.404 kg Intake: Intake, IV Amount 100 1607.833 D5-0.45NS 1,000 ml @ 40 522 mls/hr IV .Q24H [facility] Rx#: [id number] Levofloxacin 500mg/100mL 100 500 mg In 100 ml @ 100 mls/hr IV Q24HR [facility] Rx#: [id number] Multivitamin Inj 10 ml In 785.833 Dextrose 70% 500 ml In Amino Acids 8.5% 590 ml In Intralipids 20% 100 ml @ 50 mls/hr IV .Q24H [facility] Rx#:[id number] metroNIDAZOLE 500mg/NS 100 200 100mL 500 mg In 100 ml @ 100 mls/hr IV Q8HR [facility] Rx #:[id number] TPN/PPN 600 Output: Drainage 20 WOUND VAC - SACRUM 20 Urine 900 2200 600 Other: # Bowel Movements 0 Weight Source Bedscale Bedscale Bedscale Active Medications: Current Medications Acetaminophen (Tylenol 650mg/20.3ml Suspension) 650 mg GT Q4H PRN PRN Reason: pain/temp>101 Stop: 11/27/17 19:31 Acetylcysteine (Mucomyst 20%) 3 ml HHN Q4HRT [facility] Stop: 11/27/17 22:59 Last Admin: 10/01/17 15:06 Dose: Not Given Albuterol/Ipratropium (Duoneb Neb) 3 ml HHN Q4HRT [facility] Stop: 11/27/17 22:59 Last Admin: 10/01/17 15:06 Dose: 3 ml Albuterol/Ipratropium (Duoneb Neb) 3 ml HHN Q2HRT PRN PRN Reason: Shortness of Breath Stop: 11/27/17 19:31 Docusate Sodium (Colace) 250 mg GT BID [facility] Stop: 11/28/17 08:59 Last Admin: 10/01/17 10:34 Dose: Not Given Heparin Sodium (Porcine) (Heparin) 5,000 units SUBQ Q12HR [facility] Stop: 11/28/17 20:59 Last Admin: 10/01/17 11:40 Dose: 5,000 units Metronidazole (Flagyl) 500 mg in 100 mls @ 100 mls/hr IV Q8HR AJIT Stop: 11/27/17 20:59 Last Infusion: 10/01/17 05:47 Dose: Infused Levofloxacin (Levaquin Pb) 500 mg in 100 mls @ 100 mls/hr IV Q24HR AJIT Stop: 11/28/17 20:59 Last Infusion: 09/30/17 21:22 Dose: Infused Multivitamins/Minerals 10 ml/Dextrose/ Amino Acids/Electrolytes/ Fat Emulsion Intravenous 1,200 mls @ 50 mls/hr IV .Q24H AJIT Stop: 10/01/17 16:00 Last Infusion: 10/01/17 06:48 Dose: 50 mls/hr Dextrose/Sodium Chloride (D5-0.45ns) 1,000 mls @ 40 mls/hr IV .Q24H [facility] Stop: 10/01/17 16:00 Last Infusion: 10/01/17 06:00 Dose: 40 mls/hr Sodium Chloride (Nacl 0.9%) 1,000 mls @ 20 mls/hr IV .Q24H [facility] Stop: 11/30/17 15:59 Multivitamins/Minerals 10 ml/Dextrose/ Amino Acids/Electrolytes/ Fat Emulsion Intravenous 1,400 mls @ 50 mls/hr IV .Q24H [facility] Stop: 10/29/17 14:59 Insulin Aspart (Novolog Insulin Sliding Scale) 0 units SUBQ Q6HR AJIT PRN Reason: Protocol Stop: 11/28/17 17:59 Last Admin: 10/01/17 12:01 Dose: 2 units Magnesium Hydroxide (Milk Of Magnesia) 30 ml GT DAILY PRN PRN Reason: Constipation Stop: 11/27/17 19:31 Methylprednisolone Sodium Succinate (Solu-Medrol) 60 mg IV Q8HR [facility] Stop: 11/29/17 14:55 Last Admin: 10/01/17 04:42 Dose: 60 mg Midodrine (Proamatine) 10 mg GT Q8HR [facility] Stop: 11/28/17 12:59 Last Admin: 10/01/17 14:16 Dose: Not Given Miscellaneous (Tpn Per Pharmacy) 1 [facility] PRN PRN PRN Reason: PROTOCOL Stop: 11/27/17 19:35 Miscellaneous ([employer] Prophylaxis Screen/ Admission) 1 [facility] PRN PRN PRN Reason: PROTOCOL Stop: 11/28/17 09:58 Miscellaneous (Probiotic Screen) 1 [facility] PRN PRN PRN Reason: PROTOCOL Stop: 11/28/17 11:44 Morphine Sulfate (Morphine) 1 mg IVP Q4H PRN PRN Reason: Pain (Severe) Ondansetron HCl (Zofran) 4 mg IV Q8HR PRN PRN Reason: Nausea / Vomiting Stop: 11/27/17 19:31 Pantoprazole Sodium (Protonix) 40 mg IVP DAILY [facility] Stop: 11/29/17 08:59 Last Admin: 10/01/17 11:40 Dose: 40 mg Zinc Sulfate (Zinc Sulfate) 220 mg GT DAILY [facility] Stop: 11/28/17 08:59 Last Admin: 10/01/17 10:34 Dose: Not Given General: weak HEENT: NC/AT, PERRLA Neck: Supple Lungs: congested, rales, ronchi Cardiovascular: RRR, Normal S1, Normal S2, without murmur Abdomen: soft, tender, globular, non-distended, +GT, positive bowel sound Extremities: excoriation, contracture, other (sacral ulcer) Neurological: unable to follow command - Procedures Procedures: Procedures Procedure Code Date BYPASS DESCENDING COLON TO CUTANEOUS, OPEN APPROACH [id number] 08/14/17 COLOSTOMY 68966 08/14/17 CYSTOSCOPY & URETER CATHETER 39276 08/14/17 CECILY BONE 20 SQ CM/< [id number] 08/14/17 CECILY SUBQ TISSUE 20 SQ CM/< [id number] 09/28/17 DRAINAGE OF BLADDER WITH DRAINAGE DEVICE, ENDO [id number] 08/14/17 EXCISION OF BACK SUBCU/FASCIA, OPEN APPROACH [id number] 09/28/17 EXCISION OF DESCENDING COLON, OPEN APPROACH [id number] 09/28/17 EXCISION OF SACRUM, OPEN APPROACH [id number] 08/14/17 EXTIRPATION OF MATTER FROM BLADDER, ENDO [id number] 08/14/17 PARTIAL REMOVAL OF COLON [id number] 09/28/17 Internal Medicine Assmt/Plan - Assessment Assessment: - Assessment Assessment: -prolapsed colostomy s/p exploratory laparotomy, resection of descending colon and side to side anastomosis -s/p excisional debridement of sacral decubitus ulceration with wound vac - s/pexcisional debridement of right foot ulcer -s/p excisional debridement left foot ulcer -acute uti -multiple sclerosis -schizophrenia - Plan Plan: continue with wound care ppn for nutritional support continue ventilator support, pulmo is following will await for extubation cbc/bmp in am continue ivabx continue current plan of care pt seen and examined on vnt support sp colostomy repair, resection, sp i and d of wounds dw rn see orders - Plan Plan: cpm Nutritional Asmnt/Malnutr-PDOC - Dietary Evaluation Malnutrition Findings (Please click <Entered> for more info): Nutritional Asmnt/Malnutrition Start: 09/29/17 16: 21 Text: Status: Complete Freq: Document 09/29/17 16:21 [facility] (Rec: 09/29/17 16:27 [facility] [id number]) Nutritional Asmnt/Malnutrition Patient General Information Nutritional Screening High Risk Consult Diagnosis prolapsed colostomy Pertinent Medical Hx/Surgical Hx HTN, CVA/TIA, PUD/GERD, arthritis, anemia, pultiple sclerosis, decubitus ulcer, PEG/Gtube, colostomy Subjective Information Consult received for stage 4 sacral pressure ulcer. pt had debridement and resection of descending colon today. Pt now on PPN. Current Diet Order/ Nutrition Support PPN D10%, AA4.25%, lip 20% 100ml at 50ml/hr Pertinent Medications D5-0.9%ns at 80ml/hr (326kcal) , novolog, levaquin, zinc Pertinent Labs 09/29 Cr 0.4, glucose 126, POC 137 Nutritional Hx/Data Height 1.65 m Height (Calculated Centimeters) 165.1 Current Weight (lbs) 67.132 kg Weight (Calculated Kilograms) 67.1 Weight (Calculated Grams) 65173.7 [place] Body Weight 136 Body Mass Index (BMI) 24.6 Weight Status Approriate GI Symptoms GI Symptoms None Last BM no record Difficult in: None Skin Integrity/Comment: decubitus ulcer to right toe, left toe and sacrum Current %PO Poor (25-49%) Estimated Nutritional Goals BEE in Kcals: Using Current wt Calories/Kcals/Kg 25-30 Kcals Calculated 4500-6475 Protein: Using Current wt Protein g/k.2-1.4 Protein Calculated 80-94 Fluid: ml 1675-2010ml (1ml/kcal) Nutritional Problem 1. Problem Problem increased nutrition needs ( calorie and protein( Etiology increased metabolic demand Signs/Symptoms: stage 4 pressure ulcer Malnutrition Alert Protein-Calorie Malnutrition N/A Is there a minimum of two criteria No selected? Query Text:Check all the applicable criteria. A minimum of two criteria are recommended for diagnosis of either severe or non-severe malnutrition. Intervention/Recommendation Comments 1. Recommend PPN D10% AA5% Lipid 10% 200ml at 75ml/hr as tolerated. It provides 1372kcal, 180g CCHO (1.8mg/kg/ min), 90g protein, meeting 100 % of nutritional needs with D5 at 80ml/hr. 2. Monitor PPN tolerance, wt daily, skin integrity and labs 3. F/U as high risk in 2-3 days, 10/01-10/02 Expected Outcomes/Goals Expected Outcomes/Goals 1. Pt to meet at least 75% of nutritional needs via nutrition support with tolerance 2. Wt stability, wound to heal , labs to approach WNL.
[2017-10-01] MEDS ORDERED: Sodium Chloride 0.9% 1,000 ML IV SCH (16:00)
[2017-10-01] MEDS: TPN 8.5%-70% CUSTOM IV SCH ×2 (17:26→19:12)
[2017-10-01] MEDS: D5-0.45NS 1,000 ML IV SCH (19:11)
[2017-10-01] MEDS: Levofloxacin 500mg/100mL Premix Bag IV SCH (21:48)
[2017-10-02] MEDS: Albuterol/Ipratropium Neb 3 ML AERS HHN SCH ×6 (02:41→23:04)
[2017-10-02 05:11] LABS: % LYMPHOCYTES 10.7 % (20.0-50.0); % MONOCYTES 6.5 % (2.0-10.0); % NEUTROPHILS 82.8 % (40.0-80.0); HEMATOCRIT 31.7 % (41.0-60); HEMOGLOBIN 10.3 gm/dL (12-16); LYMPHOCYTE ABSOLUTE 1.1 Th/cmm (1.5-3.0); MEAN CELL VOLUME 84.3 fl (80-99); MEAN CORPUSCULAR HEMOGLOBIN 27.3 pg (26.0-30.0); MEAN CORPUSCULAR HGB CONC 32.4 pg (28.0-36.0); MEAN PLATELET VOLUME 8.5 fl; MONOCYTE ABSOLUTE 0.7 Th/cmm (0.3-1.0); NEUTROPHILE ABSOLUTE 8.5 Th/cmm (1.8-8.0); PLATELET COUNT 331 Th/cmm (150-400); RED BLOOD COUNT 3.76 Mil/cmm (4.30-5.70); RED CELL DISTRIBUTION WIDTH 18.2 % (11.5-20.0); WHITE BLOOD COUNT 10.3 Th/cmm (4.8-10.8)
[2017-10-02 05:21] LABS: ANION GAP 10.3 (7.0-16.0); BUN - UREA NITROGEN 16 mg/dL (7-25); CALCIUM SERUM 9.1 mg/dL (8.6-10.3); CARBON DIOXIDE 27.5 mEq/L (21.0-31.0); CHLORIDE 100 mEq/L (98-107); CREATININE - SERUM 0.4 mg/dL (0.7-1.3); GFR AFRICAN-AMERICAN > 60.0 ml/min (>90); GFR NON AFRICAN-AMERICAN > 60.0 ml/min; GLUCOSE 164 mg/dL (70-105); MAGNESIUM 1.9 mg/dL (1.9-2.7); PHOSPHOROUS 2.8 mg/dL (2.5-5.0); POTASSIUM SERUM 3.8 mEq/L (3.5-5.1); SODIUM SERUM 134 mEq/L (136-145)
[2017-10-02] MEDS: INSULIN ASPART SLIDING SCALE 100 UNITS/ML UNIT SUBQ SCH ×4 (06:17→18:44)
--- NOTE | 2017-10-02 09:13 | Diagnostic Imaging Report ---
CHEST X-RAY: AP view INDICATION: Shortness of breath COMPARISON: 09/29/2017 FINDINGS: The prior ET tube is been removed. Right IJ line is stable. Low lung volumes are seen. Diffuse gaseous filled loops of bowel and copious stool is noted along the upper abdomen. Right basal atelectasis is noted. No focal soft tissue effusions. Heart size normal. IMPRESSION: Interval extubation. Low lung volumes and right basal atelectasis. No focal consolidation identified. Diffuse gaseous distended loops of bowel and copious stool. Please correlate clinically for ileus and constipation. This may be causing the patient's low lung volumes.
[2017-10-02] MEDS: Docusate Sodium 100 mg/10 mL UD GT SCH ×2 (09:31→17:26)
[2017-10-02] MEDS: metroNIDAZOLE 500mg/NS 100mL 500 MG/100 ML BAG IV SCH ×3 (09:33→21:47)
--- NOTE | 2017-10-02 11:25 | Internal Medicine Prog Note ---
Internal Medicine Subjective - Subjective Patient seen and examined:: with staff, chart reviewed Patient is:: awake, verbal, interactive, in bed, talking, stares blankly Patient Complaints of:: congestion Per staff patient has:: no adverse event, noncompliant, tolerating meds Internal Medicine Objective - Results Result Diagrams: 10/02/17 04:15 10/02/17 04:15 Recent Labs: Laboratory Last Values WBC 10.3 Th/cmm (4.8-10.8) 10/02/17 04:15 RBC 3.76 Mil/cmm (4.30-5.70) L 10/02/17 04:15 Hgb 10.3 gm/dL (12-16) L 10/02/17 04:15 Hct 31.7 % (41.0-60) L 10/02/17 04:15 MCV 84.3 fl (80-99) 10/02/17 04:15 MCH 27.3 pg (26.0-30.0) 10/02/17 04:15 MCHC Differential 32.4 pg (28.0-36.0) 10/02/17 04:15 RDW 18.2 % (11.5-20.0) 10/02/17 04:15 Plt Count 331 Th/cmm (150-400) 10/02/17 04:15 MPV 8.5 fl 10/02/17 04:15 Neutrophils % 82.8 % (40.0-80.0) H 10/02/17 04:15 Band Neutrophils % 1 % (0-10) 09/28/17 17:35 Lymphocytes % 10.7 % (20.0-50.0) L 10/02/17 04:15 Monocytes % 6.5 % (2.0-10.0) 10/02/17 04:15 Eosinophils % 0.0 % (0.0-5.0) 10/02/17 04:15 Basophils % 0.0 % (0.0-2.0) 10/02/17 04:15 Neutrophils (Manual) 83 % (40-80) H 09/28/17 17:35 Lymphocytes 10 % (20-50) L 09/28/17 17:35 Monocytes 3 % (2-10) 09/28/17 17:35 Eosinophils 0 % (0-5) 09/28/17 17:35 Basophils 0 % (0-3) 09/28/17 17:35 Myelocytes 3 % 09/28/17 17:35 Platelet Estimate INCREASED PLATELETS (NORMAL) 09/28/17 17:35 PT 11.0 SECONDS (9.5-11.5) 09/28/17 17:35 INR 1.06 (0.5-1.4) 09/28/17 17:35 PTT (Actin FS) 27.2 SECONDS (26.0-38.0) 09/28/17 17:35 Specimen Source Arterial 09/30/17 15:55 Sample Site Left Radial 09/30/17 15:55 pH 7.47 (7.35-7.45) H 09/30/17 15:55 pCO2 39.0 mmHg (35.0-45.0) 09/30/17 15:55 pO2 195.0 mmHg (80.0-100.0) H 09/30/17 15:55 HCO3 28.4 mEq/L (20.0-26.0) H 09/30/17 15:55 Base Excess 4.4 mEq/L (-3.0-3.0) H 09/30/17 15:55 O2 Saturation 100.0 % (92.0-100.0) 09/30/17 15:55 Osman Test yes 09/30/17 15:55 Vent Rate n/a 09/30/17 15:55 Inspired O2 40 09/30/17 15:55 Tidal Volume n/a 09/30/17 15:55 PEEP n/a 09/30/17 15:55 Pressure (ins/psv/peep) n/a 09/30/17 15:55 Critical Value emeka 09/30/17 15:55 Sodium 134 mEq/L (136-145) L 10/02/17 04:15 Potassium 3.8 mEq/L (3.5-5.1) 10/02/17 04:15 Chloride 100 mEq/L (98-107) 10/02/17 04:15 Carbon Dioxide 27.5 mEq/L (21.0-31.0) 10/02/17 04:15 Anion Gap 10.3 (7.0-16.0) 10/02/17 04:15 BUN 16 mg/dL (7-25) 10/02/17 04:15 Creatinine 0.4 mg/dL (0.7-1.3) L 10/02/17 04:15 Est GFR ( Amer) > 60.0 ml/min (>90) 10/02/17 04:15 Est GFR (Non-Af Amer) > 60.0 ml/min 10/02/17 04:15 BUN/Creatinine Ratio 40.0 10/02/17 04:15 Glucose 164 mg/dL (70-105) H 10/02/17 04:15 POC Glucose 128 MG/DL (70 - 105) H 10/02/17 07:03 Calcium 9.1 mg/dL (8.6-10.3) 10/02/17 04:15 Phosphorus 2.8 mg/dL (2.5-5.0) 10/02/17 04:15 Magnesium 1.9 mg/dL (1.9-2.7) 10/02/17 04:15 Total Bilirubin 0.3 mg/dL (0.3-1.0) 10/01/17 04:30 AST 12 U/L (13-39) L 10/01/17 04:30 ALT 23 U/L (7-52) 10/01/17 04:30 Alkaline Phosphatase 64 U/L (34-104) 10/01/17 04:30 Creatine Kinase 17 U/L (30-223) L 09/28/17 17:35 Troponin I 0.01 ng/mL (0.01-0.05) 09/28/17 17:35 B-Natriuretic Peptide 13.7 pg/mL (5.0-100.0) 09/28/17 17:35 Total Protein 7.1 gm/dL (6.0-8.3) 10/01/17 04:30 Albumin 2.8 gm/dL (4.2-5.5) L 10/01/17 04:30 Globulin 4.3 gm/dL 10/01/17 04:30 Albumin/Globulin Ratio 0.7 (1.0-1.8) L 10/01/17 04:30 Prealbumin 33 mg/dL (10-36) 09/29/17 06:10 Triglycerides 166 mg/dL (<150) H 09/29/17 06:10 Cholesterol 148 mg/dL (<200) 04/18/18 06:10 LDL Cholesterol Direct 70 mg/dL (75-193) L 09/28/17 17:35 HDL Cholesterol 40 mg/dL (23-92) 09/28/17 17:35 Amylase 79 U/L (29-103) 09/28/17 17:35 Lipase 15 U/L (11-82) 09/28/17 17:35 Urine Source CLEAN C 09/28/17 20:10 Urine Color YELLOW 09/28/17 20:10 Urine Clarity CLEAR (CLEAR) 09/28/17 20:10 Urine pH 8.0 (4.6 - 8.0) 09/28/17 20:10 Ur Specific [place] 1.020 (1.005-1.030) 09/28/17 20:10 Urine Protein NEGATIVE mg/dL (NEGATIVE) 09/28/17 20:10 Urine Glucose (UA) NEGATIVE mg/dL (NEGATIVE) 09/28/17 20:10 Urine Ketones NEGATIVE mg/dL (NEGATIVE) 09/28/17 20:10 Urine Blood TRACE (NEGATIVE) 09/28/17 20:10 Urine Nitrate NEGATIVE (NEGATIVE) 09/28/17 20:10 Urine Bilirubin NEGATIVE (NEGATIVE) 09/28/17 20:10 Urine Urobilinogen 0.2 E.U./dL (0.2 - 1.0) 09/28/17 20:10 Ur Leukocyte Esterase NEGATIVE (NEGATIVE) 09/28/17 20:10 Urine RBC 2-5 /hpf (0-5) H 09/28/17 20:10 Urine WBC 0-2 /hpf (0-5) 09/28/17 20:10 Ur Epithelial Cells RARE /lpf (FEW) 09/28/17 20:10 Amorphous Sediment MANY PHOSPHATES (NONE SEEN) 09/28/17 20:10 Urine Bacteria NONE SEEN /hpf (NONE SEEN) 09/28/17 20:10 - Physical Exam Vitals and I&O: Vital Signs Temp 97.2 F 10/02/17 08:00 Pulse 95 10/02/17 10:00 Resp 15 10/02/17 10:00 BP 115/85 10/02/17 10:00 Pulse Ox 100 10/02/17 10:00 Intake & Output 10/01/17 10/02/17 10/02/17 18:59 06:59 18:59 Intake Total 100 200 Output Total 600 Balance -500 200 Weight (lbs) 67.404 kg 67.132 kg 67.132 kg Intake: Intake, IV Amount 100 200 Levofloxacin 500mg/100mL 100 500 mg In 100 ml @ 100 mls/hr IV Q24HR [facility] Rx#: [id number] metroNIDAZOLE 500mg/NS 100 100 100mL 500 mg In 100 ml @ 100 mls/hr IV Q8HR [facility] Rx #:[id number] Output: Urine 600 Other: Weight Source Bedscale Bedscale Bedscale Active Medications: Current Medications Acetaminophen (Tylenol 650mg/20.3ml Suspension) 650 mg GT Q4H PRN PRN Reason: pain/temp>101 Stop: 11/27/17 19:31 Acetylcysteine (Mucomyst 20%) 3 ml HHN Q4HRT [facility] Stop: 11/27/17 22:59 Last Admin: 10/02/17 07:58 Dose: 3 ml Albuterol/Ipratropium (Duoneb Neb) 3 ml HHN Q4HRT [facility] Stop: 11/27/17 22:59 Last Admin: 10/02/17 07:56 Dose: 3 ml Albuterol/Ipratropium (Duoneb Neb) 3 ml HHN Q2HRT PRN PRN Reason: Shortness of Breath Stop: 11/27/17 19:31 Docusate Sodium (Colace) 250 mg GT BID [facility] Stop: 11/28/17 08:59 Last Admin: 10/02/17 09:31 Dose: 250 mg Heparin Sodium (Porcine) (Heparin) 5,000 units SUBQ Q12HR [facility] Stop: 11/28/17 20:59 Last Admin: 10/02/17 09:31 Dose: 5,000 units Metronidazole (Flagyl) 500 mg in 100 mls @ 100 mls/hr IV Q8HR [facility] Stop: 11/27/17 20:59 Last Admin: 10/02/17 09:33 Dose: 100 mls/hr Levofloxacin (Levaquin Pb) 500 mg in 100 mls @ 100 mls/hr IV Q24HR [facility] Stop: 11/28/17 20:59 Last Infusion: 10/01/17 22:50 Dose: Infused Sodium Chloride (Nacl 0.9%) 1,000 mls @ 20 mls/hr IV .Q24H [facility] Stop: 11/30/17 15:59 Last Admin: 10/01/17 15:38 Dose: 20 mls/hr Multivitamins/Minerals 10 ml/Dextrose/ Amino Acids/Electrolytes/ Fat Emulsion Intravenous 1,400 mls @ 50 mls/hr IV .Q24H [facility] Stop: 10/29/17 14:59 Last Admin: 10/01/17 17:26 Dose: 50 mls/hr Insulin Aspart (Novolog Insulin Sliding Scale) 0 units SUBQ Q6HR AJIT PRN Reason: Protocol Stop: 11/28/17 17:59 Last Admin: 10/02/17 07:18 Dose: Not Given Magnesium Hydroxide (Milk Of Magnesia) 30 ml GT DAILY PRN PRN Reason: Constipation Stop: 11/27/17 19:31 Methylprednisolone Sodium Succinate (Solu-Medrol) 60 mg IV Q8HR [facility] Stop: 11/29/17 14:55 Last Admin: 10/02/17 06:44 Dose: 60 mg Midodrine (Proamatine) 10 mg GT Q8HR [facility] Stop: 11/28/17 12:59 Last Admin: 10/02/17 06:43 Dose: 10 mg Miscellaneous (Tpn Per Pharmacy) 1 [facility] PRN PRN PRN Reason: PROTOCOL Stop: 11/27/17 19:35 Miscellaneous (Vte Chemical Prophylaxis Screen/ Admission) 1 [facility] PRN PRN PRN Reason: PROTOCOL Stop: 11/28/17 09:58 Miscellaneous (Probiotic Screen) 1 [facility] PRN PRN PRN Reason: PROTOCOL Stop: 11/28/17 11:44 Morphine Sulfate (Morphine) 1 mg IVP Q4H PRN PRN Reason: Pain (Severe) Ondansetron HCl (Zofran) 4 mg IV Q8HR PRN PRN Reason: Nausea / Vomiting Stop: 11/27/17 19:31 Pantoprazole Sodium (Protonix) 40 mg IVP DAILY [facility] Stop: 11/29/17 08:59 Last Admin: 10/02/17 09:30 Dose: 40 mg Zinc Sulfate (Zinc Sulfate) 220 mg GT DAILY [facility] Stop: 11/28/17 08:59 Last Admin: 10/02/17 09:31 Dose: 220 mg General: weak HEENT: NC/AT, PERRLA Neck: Supple Lungs: congested, rales, ronchi Cardiovascular: RRR, Normal S1, Normal S2, without murmur Abdomen: soft, tender, globular, non-distended, +GT, positive bowel sound Extremities: excoriation, contracture, other (sacral ulcer) Neurological: unable to follow command - Procedures Procedures: Procedures Procedure Code Date BYPASS DESCENDING COLON TO CUTANEOUS, OPEN APPROACH [id number] 08/14/17 COLOSTOMY 74802 08/14/17 CYSTOSCOPY & URETER CATHETER 83881 08/14/17 CECILY BONE 20 SQ CM/< 62114 08/14/17 CECILY SUBQ TISSUE 20 SQ CM/< 76817 09/28/17 DRAINAGE OF BLADDER WITH DRAINAGE DEVICE, ENDO [id number] 08/14/17 EXCISION OF BACK SUBCU/FASCIA, OPEN APPROACH [id number] 09/28/17 EXCISION OF DESCENDING COLON, OPEN APPROACH [id number] 09/28/17 EXCISION OF SACRUM, OPEN APPROACH [id number] 08/14/17 EXTIRPATION OF MATTER FROM BLADDER, ENDO [id number] 08/14/17 PARTIAL REMOVAL OF COLON 81370 09/28/17 Internal Medicine Assmt/Plan - Assessment Assessment: - Assessment Assessment: -prolapsed colostomy s/p exploratory laparotomy, resection of descending colon and side to side anastomosis -s/p excisional debridement of sacral decubitus ulceration with wound vac - s/pexcisional debridement of right foot ulcer -s/p excisional debridement left foot ulcer -acute uti -multiple sclerosis -schizophrenia - Plan Plan: continue with wound care ppn for nutritional support continue ventilator support, pulmo is following will await for extubation cbc/bmp in am continue ivabx continue current plan of care pt seen and examined on vnt support sp colostomy repair, resection, sp i and d of wounds dw rn see orders - Plan Plan: cpm dw dr llanes and lissette Nutritional Asmnt/Malnutr-PDOC - Dietary Evaluation Malnutrition Findings (Please click <Entered> for more info): Nutritional Asmnt/Malnutrition Start: 09/29/17 16: 21 Text: Status: Complete Freq: Document 09/29/17 16:21 HEN (Rec: 09/29/17 16:27 HEN [id number]) Nutritional Asmnt/Malnutrition Patient General Information Nutritional Screening High Risk Consult Diagnosis prolapsed colostomy Pertinent Medical Hx/Surgical Hx HTN, CVA/TIA, PUD/GERD, arthritis, anemia, pultiple sclerosis, decubitus ulcer, PEG/Gtube, colostomy Subjective Information Consult received for stage 4 sacral pressure ulcer. pt had debridement and resection of descending colon today. Pt now on PPN. Current Diet Order/ Nutrition Support PPN D10%, AA4.25%, lip 20% 100ml at 50ml/hr Pertinent Medications D5-0.9%ns at 80ml/hr (326kcal) , novolog, levaquin, zinc Pertinent Labs 09/29 Cr 0.4, glucose 126, POC 137 Nutritional Hx/Data Height 1.65 m Height (Calculated Centimeters) 165.1 Current Weight (lbs) 67.132 kg Weight (Calculated Kilograms) 67.1 Weight (Calculated Grams) 49903.7 [place] Body Weight 136 Body Mass Index (BMI) 24.6 Weight Status Approriate GI Symptoms GI Symptoms None Last BM no record Difficult in: None Skin Integrity/Comment: decubitus ulcer to right toe, left toe and sacrum Current %PO Poor (25-49%) Estimated Nutritional Goals BEE in Kcals: Using Current wt Calories/Kcals/Kg 25-30 Kcals Calculated 9026-9915 Protein: Using Current wt Protein g/k.2-1.4 Protein Calculated 80-94 Fluid: ml 1675-2010ml (1ml/kcal) Nutritional Problem 1. Problem Problem increased nutrition needs ( calorie and protein( Etiology increased metabolic demand Signs/Symptoms: stage 4 pressure ulcer Malnutrition Alert Protein-Calorie Malnutrition N/A Is there a minimum of two criteria No selected? Query Text:Check all the applicable criteria. A minimum of two criteria are recommended for diagnosis of either severe or non-severe malnutrition. Intervention/Recommendation Comments 1. Recommend PPN D10% AA5% Lipid 10% 200ml at 75ml/hr as tolerated. It provides 1372kcal, 180g CCHO (1.8mg/kg/ min), 90g protein, meeting 100 % of nutritional needs with D5 at 80ml/hr. 2. Monitor PPN tolerance, wt daily, skin integrity and labs 3. F/U as high risk in 2-3 days, 10/01-10/02 Expected Outcomes/Goals Expected Outcomes/Goals 1. Pt to meet at least 75% of nutritional needs via nutrition support with tolerance 2. Wt stability, wound to heal , labs to approach WNL.
[2017-10-02] MEDS: TPN 8.5%-70% CUSTOM IV SCH (17:29)
[2017-10-02] MEDS: Levofloxacin 500mg/100mL Premix Bag IV SCH (20:19)
[2017-10-03] MEDS: INSULIN ASPART SLIDING SCALE 100 UNITS/ML UNIT SUBQ SCH ×4 (00:16→17:30)
[2017-10-03] MEDS: Albuterol/Ipratropium Neb 3 ML AERS HHN SCH ×6 (03:17→23:23)
[2017-10-03] MEDS: metroNIDAZOLE 500mg/NS 100mL 500 MG/100 ML BAG IV SCH ×3 (05:23→20:24)
[2017-10-03 07:12] LABS: ANION GAP 12.1 (7.0-16.0); BUN - UREA NITROGEN 22 mg/dL (7-25); CALCIUM SERUM 8.9 mg/dL (8.6-10.3); CHLORIDE 102 mEq/L (98-107); CREATININE - SERUM 0.4 mg/dL (0.7-1.3); GFR AFRICAN-AMERICAN > 60.0 ml/min (>90); GFR NON AFRICAN-AMERICAN > 60.0 ml/min; GLUCOSE 127 mg/dL (70-105); PHOSPHOROUS 3.1 mg/dL (2.5-5.0); POTASSIUM SERUM 4.1 mEq/L (3.5-5.1); SODIUM SERUM 135 mEq/L (136-145)
[2017-10-03] MEDS: Docusate Sodium 100 mg/10 mL UD GT SCH ×2 (08:42→16:16)
--- NOTE | 2017-10-03 09:21 | General Progress Note ---
Subjective - Review of Systems Service Date: 10/03/17 Events since last encounter: GTfeeding increased feet redressed, healing on wound vac for sacral ulcer liquids stools, gas in colostomy for transfer Objective - Results Result Diagrams: 10/02/17 04:15 10/03/17 05:39 Recent Labs: Laboratory Last Values WBC 10.3 Th/cmm (4.8-10.8) 10/02/17 04:15 RBC 3.76 Mil/cmm (4.30-5.70) L 10/02/17 04:15 Hgb 10.3 gm/dL (12-16) L 10/02/17 04:15 Hct 31.7 % (41.0-60) L 10/02/17 04:15 MCV 84.3 fl (80-99) 10/02/17 04:15 MCH 27.3 pg (26.0-30.0) 10/02/17 04:15 MCHC Differential 32.4 pg (28.0-36.0) 10/02/17 04:15 RDW 18.2 % (11.5-20.0) 10/02/17 04:15 Plt Count 331 Th/cmm (150-400) 10/02/17 04:15 MPV 8.5 fl 10/02/17 04:15 Neutrophils % 82.8 % (40.0-80.0) H 10/02/17 04:15 Band Neutrophils % 1 % (0-10) 09/28/17 17:35 Lymphocytes % 10.7 % (20.0-50.0) L 10/02/17 04:15 Monocytes % 6.5 % (2.0-10.0) 10/02/17 04:15 Eosinophils % 0.0 % (0.0-5.0) 10/02/17 04:15 Basophils % 0.0 % (0.0-2.0) 10/02/17 04:15 Neutrophils (Manual) 83 % (40-80) H 09/28/17 17:35 Lymphocytes 10 % (20-50) L 09/28/17 17:35 Monocytes 3 % (2-10) 09/28/17 17:35 Eosinophils 0 % (0-5) 09/28/17 17:35 Basophils 0 % (0-3) 09/28/17 17:35 Myelocytes 3 % 09/28/17 17:35 Platelet Estimate INCREASED PLATELETS (NORMAL) 09/28/17 17:35 PT 11.0 SECONDS (9.5-11.5) 09/28/17 17:35 INR 1.06 (0.5-1.4) 09/28/17 17:35 PTT (Actin FS) 27.2 SECONDS (26.0-38.0) 09/28/17 17:35 Specimen Source Arterial 09/30/17 15:55 Sample Site Left Radial 09/30/17 15:55 pH 7.47 (7.35-7.45) H 09/30/17 15:55 pCO2 39.0 mmHg (35.0-45.0) 09/30/17 15:55 pO2 195.0 mmHg (80.0-100.0) H 09/30/17 15:55 HCO3 28.4 mEq/L (20.0-26.0) H 09/30/17 15:55 Base Excess 4.4 mEq/L (-3.0-3.0) H 09/30/17 15:55 O2 Saturation 100.0 % (92.0-100.0) 09/30/17 15:55 Osman Test yes 09/30/17 15:55 Vent Rate n/a 09/30/17 15:55 Inspired O2 40 09/30/17 15:55 Tidal Volume n/a 09/30/17 15:55 PEEP n/a 09/30/17 15:55 Pressure (ins/psv/peep) n/a 09/30/17 15:55 Critical Value emeka 09/30/17 15:55 Sodium 135 mEq/L (136-145) L 10/03/17 05:39 Potassium 4.1 mEq/L (3.5-5.1) 10/03/17 05:39 Chloride 102 mEq/L (98-107) 10/03/17 05:39 Carbon Dioxide 25.0 mEq/L (21.0-31.0) 10/03/17 05:39 Anion Gap 12.1 (7.0-16.0) 10/03/17 05:39 BUN 22 mg/dL (7-25) 10/03/17 05:39 Creatinine 0.4 mg/dL (0.7-1.3) L 10/03/17 05:39 Est GFR ( Amer) > 60.0 ml/min (>90) 10/03/17 05:39 Est GFR (Non-Af Amer) > 60.0 ml/min 10/03/17 05:39 BUN/Creatinine Ratio 55.0 10/03/17 05:39 Glucose 127 mg/dL (70-105) H 10/03/17 05:39 POC Glucose 130 MG/DL (70 - 105) H 10/03/17 05:26 Calcium 8.9 mg/dL (8.6-10.3) 10/03/17 05:39 Phosphorus 3.1 mg/dL (2.5-5.0) 10/03/17 05:39 Magnesium 2.0 mg/dL (1.9-2.7) 10/03/17 05:39 Total Bilirubin 0.3 mg/dL (0.3-1.0) 10/01/17 04:30 AST 12 U/L (13-39) L 10/01/17 04:30 ALT 23 U/L (7-52) 10/01/17 04:30 Alkaline Phosphatase 64 U/L (34-104) 10/01/17 04:30 Creatine Kinase 17 U/L (30-223) L 09/28/17 17:35 Troponin I 0.01 ng/mL (0.01-0.05) 09/28/17 17:35 B-Natriuretic Peptide 13.7 pg/mL (5.0-100.0) 09/28/17 17:35 Total Protein 7.1 gm/dL (6.0-8.3) 10/01/17 04:30 Albumin 2.8 gm/dL (4.2-5.5) L 10/01/17 04:30 Globulin 4.3 gm/dL 10/01/17 04:30 Albumin/Globulin Ratio 0.7 (1.0-1.8) L 10/01/17 04:30 Prealbumin 33 mg/dL (10-36) 09/29/17 06:10 Triglycerides 166 mg/dL (<150) H 09/29/17 06:10 Cholesterol 148 mg/dL (<200) 09/29/17 06:10 LDL Cholesterol Direct 70 mg/dL (75-193) L 09/28/17 17:35 HDL Cholesterol 40 mg/dL (23-92) 09/28/17 17:35 Amylase 79 U/L (29-103) 09/28/17 17:35 Lipase 15 U/L (11-82) 09/28/17 17:35 Urine Source CLEAN C 09/28/17 20:10 Urine Color YELLOW 09/28/17 20:10 Urine Clarity CLEAR (CLEAR) 09/28/17 20:10 Urine pH 8.0 (4.6 - 8.0) 09/28/17 20:10 Ur Specific [place] 1.020 (1.005-1.030) 09/28/17 20:10 Urine Protein NEGATIVE mg/dL (NEGATIVE) 09/28/17 20:10 Urine Glucose (UA) NEGATIVE mg/dL (NEGATIVE) 09/28/17 20:10 Urine Ketones NEGATIVE mg/dL (NEGATIVE) 09/28/17 20:10 Urine Blood TRACE (NEGATIVE) 09/28/17 20:10 Urine Nitrate NEGATIVE (NEGATIVE) 09/28/17 20:10 Urine Bilirubin NEGATIVE (NEGATIVE) 09/28/17 20:10 Urine Urobilinogen 0.2 E.U./dL (0.2 - 1.0) 09/28/17 20:10 Ur Leukocyte Esterase NEGATIVE (NEGATIVE) 09/28/17 20:10 Urine RBC 2-5 /hpf (0-5) H 09/28/17 20:10 Urine WBC 0-2 /hpf (0-5) 09/28/17 20:10 Ur Epithelial Cells RARE /lpf (FEW) 09/28/17 20:10 Amorphous Sediment MANY PHOSPHATES (NONE SEEN) 09/28/17 20:10 Urine Bacteria NONE SEEN /hpf (NONE SEEN) 09/28/17 20:10 - Physical Exam Vitals and I&O: Vital Signs Temp 97.6 F 10/03/17 08:00 Pulse 94 10/03/17 08:00 Resp 19 10/03/17 08:00 BP 114/71 10/03/17 08:00 Pulse Ox 100 10/03/17 08:00 Intake & Output 10/02/17 10/03/17 10/03/17 18:59 06:59 18:59 Intake Total 1402.5 2010 Output Total 1862 Balance 1402.5 148 Weight (lbs) 67.132 kg 79.379 kg Intake: Intake, IV Amount 1402.5 300 Levofloxacin 500mg/100mL 100 500 mg In 100 ml @ 100 mls/hr IV Q24HR [facility] Rx#: [id number] Multivitamin Inj 10 ml In 1202.5 Dextrose 70% 500 ml In Amino Acids 8.5% 590 ml In Intralipids 20% 300 ml @ 60 mls/hr IV .[id number] [facility] Rx#:[id number] metroNIDAZOLE 500mg/NS 200 200 100mL 500 mg In 100 ml @ 100 mls/hr IV Q8HR [facility] Rx #:[id number] Tube Feeding 760 TPN/PPN 750 Other 200 Output: Drainage 12 WOUND VAC - SACRUM 12 Urine 1850 Other: Weight Source Bedscale Bedscale Active Medications: Current Medications Acetaminophen (Tylenol 650mg/20.3ml Suspension) 650 mg GT Q4H PRN PRN Reason: pain/temp>101 Stop: 11/27/17 19:31 Acetylcysteine (Mucomyst 20%) 3 ml HHN Q4HRT [facility] Stop: 11/27/17 22:59 Last Admin: 10/03/17 07:13 Dose: 3 ml Albuterol/Ipratropium (Duoneb Neb) 3 ml HHN Q4HRT [facility] Stop: 11/27/17 22:59 Last Admin: 10/03/17 06:58 Dose: 3 ml Albuterol/Ipratropium (Duoneb Neb) 3 ml HHN Q2HRT PRN PRN Reason: Shortness of Breath Stop: 11/27/17 19:31 Docusate Sodium (Colace) 250 mg GT BID [facility] Stop: 11/28/17 08:59 Last Admin: 10/03/17 08:42 Dose: 250 mg Heparin Sodium (Porcine) (Heparin) 5,000 units SUBQ Q12HR [facility] Stop: 11/28/17 20:59 Last Admin: 10/03/17 08:40 Dose: 5,000 units Metronidazole (Flagyl) 500 mg in 100 mls @ 100 mls/hr IV Q8HR [facility] Stop: 11/27/17 20:59 Last Infusion: 10/03/17 06:25 Dose: Infused Levofloxacin (Levaquin Pb) 500 mg in 100 mls @ 100 mls/hr IV Q24HR [facility] Stop: 11/28/17 20:59 Last Infusion: 10/02/17 21:20 Dose: Infused Sodium Chloride (Nacl 0.9%) 1,000 mls @ 20 mls/hr IV .Q24H [facility] Stop: 11/30/17 15:59 Last Admin: 10/01/17 15:38 Dose: 20 mls/hr Multivitamins/Minerals 10 ml/Dextrose/ Amino Acids/Electrolytes/ Fat Emulsion Intravenous 1,400 mls @ 60 mls/hr IV .[id number] [facility] Stop: 10/29/17 14:59 Last Admin: 10/02/17 17:29 Dose: 50 mls/hr Insulin Aspart (Novolog Insulin Sliding Scale) 0 units SUBQ Q6HR AJIT PRN Reason: Protocol Stop: 11/28/17 17:59 Last Admin: 10/03/17 05:27 Dose: Not Given Magnesium Hydroxide (Milk Of Magnesia) 30 ml GT DAILY PRN PRN Reason: Constipation Stop: 11/27/17 19:31 Methylprednisolone Sodium Succinate (Solu-Medrol) 60 mg IV Q8HR [facility] Stop: 11/29/17 14:55 Last Admin: 10/03/17 05:23 Dose: 60 mg Midodrine (Proamatine) 10 mg GT Q8HR [facility] Stop: 11/28/17 12:59 Last Admin: 10/03/17 05:23 Dose: 10 mg Miscellaneous (Tpn Per Pharmacy) 1 [facility] PRN PRN PRN Reason: PROTOCOL Stop: 11/27/17 19:35 Miscellaneous (Vte Chemical Prophylaxis Screen/ Admission) 1 [facility] PRN PRN PRN Reason: PROTOCOL Stop: 11/28/17 09:58 Miscellaneous (Probiotic Screen) 1 [facility] PRN PRN PRN Reason: PROTOCOL Stop: 11/28/17 11:44 Morphine Sulfate (Morphine) 1 mg IVP Q4H PRN PRN Reason: Pain (Severe) Ondansetron HCl (Zofran) 4 mg IV Q8HR PRN PRN Reason: Nausea / Vomiting Stop: 11/27/17 19:31 Pantoprazole Sodium (Protonix) 40 mg IVP DAILY [facility] Stop: 11/29/17 08:59 Last Admin: 10/03/17 08:43 Dose: 40 mg Zinc Sulfate (Zinc Sulfate) 220 mg GT DAILY [facility] Stop: 11/28/17 08:59 Last Admin: 10/03/17 08:43 Dose: 220 mg - Procedures Procedures: Procedures Procedure Code Date BYPASS DESCENDING COLON TO CUTANEOUS, OPEN APPROACH [id number] 08/14/17 COLOSTOMY 51609 08/14/17 CYSTOSCOPY & URETER CATHETER 16028 08/14/17 CECILY BONE 20 SQ CM/< 81190 08/14/17 CECILY SUBQ TISSUE 20 SQ CM/< 60632 09/28/17 DRAINAGE OF BLADDER WITH DRAINAGE DEVICE, ENDO [id number] 08/14/17 EXCISION OF BACK SUBCU/FASCIA, OPEN APPROACH [id number] 09/28/17 EXCISION OF DESCENDING COLON, OPEN APPROACH [id number] 09/28/17 EXCISION OF SACRUM, OPEN APPROACH [id number] 08/14/17 EXTIRPATION OF MATTER FROM BLADDER, ENDO [id number] 08/14/17 PARTIAL REMOVAL OF COLON 66541 09/28/17 Nutritional Asmnt/Malnutr-PDOC - Dietary Evaluation Malnutrition Findings (Please click <Entered> for more info): Nutritional Asmnt/Malnutrition Start: 09/29/17 16: 21 Text: Status: Complete Freq: Document 09/29/17 16:21 ALONDRA (Rec: 09/29/17 16:27 ALONDRA [id number]) Nutritional Asmnt/Malnutrition Patient General Information Nutritional Screening High Risk Consult Diagnosis prolapsed colostomy Pertinent Medical Hx/Surgical Hx HTN, CVA/TIA, PUD/GERD, arthritis, anemia, pultiple sclerosis, decubitus ulcer, PEG/Gtube, colostomy Subjective Information Consult received for stage 4 sacral pressure ulcer. pt had debridement and resection of descending colon today. Pt now on PPN. Current Diet Order/ Nutrition Support PPN D10%, AA4.25%, lip 20% 100ml at 50ml/hr Pertinent Medications D5-0.9%ns at 80ml/hr (326kcal) , novolog, levaquin, zinc Pertinent Labs 09/29 Cr 0.4, glucose 126, POC 137 Nutritional Hx/Data Height 1.65 m Height (Calculated Centimeters) 165.1 Current Weight (lbs) 67.132 kg Weight (Calculated Kilograms) 67.1 Weight (Calculated Grams) 26213.7 [place] Body Weight 136 Body Mass Index (BMI) 24.6 Weight Status Approriate GI Symptoms GI Symptoms None Last BM no record Difficult in: None Skin Integrity/Comment: decubitus ulcer to right toe, left toe and sacrum Current %PO Poor (25-49%) Estimated Nutritional Goals BEE in Kcals: Using Current wt Calories/Kcals/Kg 25-30 Kcals Calculated 8523-2687 Protein: Using Current wt Protein g/k.2-1.4 Protein Calculated 80-94 Fluid: ml 1675-2010ml (1ml/kcal) Nutritional Problem 1. Problem Problem increased nutrition needs ( calorie and protein( Etiology increased metabolic demand Signs/Symptoms: stage 4 pressure ulcer Malnutrition Alert Protein-Calorie Malnutrition N/A Is there a minimum of two criteria No selected? Query Text:Check all the applicable criteria. A minimum of two criteria are recommended for diagnosis of either severe or non-severe malnutrition. Intervention/Recommendation Comments 1. Recommend PPN D10% AA5% Lipid 10% 200ml at 75ml/hr as tolerated. It provides 1372kcal, 180g CCHO (1.8mg/kg/ min), 90g protein, meeting 100 % of nutritional needs with D5 at 80ml/hr. 2. Monitor PPN tolerance, wt daily, skin integrity and labs 3. F/U as high risk in 2-3 days, 10/01-10/02 Expected Outcomes/Goals Expected Outcomes/Goals 1. Pt to meet at least 75% of nutritional needs via nutrition support with tolerance 2. Wt stability, wound to heal , labs to approach WNL.
--- NOTE | 2017-10-03 11:46 | Internal Medicine Prog Note ---
Internal Medicine Subjective - Subjective Patient seen and examined:: with staff, chart reviewed Patient is:: awake, verbal, interactive, in bed, talking, stares blankly Patient Complaints of:: congestion Per staff patient has:: no adverse event, noncompliant, tolerating meds Internal Medicine Objective - Results Result Diagrams: 10/02/17 04:15 10/03/17 05:39 Recent Labs: Laboratory Last Values WBC 10.3 Th/cmm (4.8-10.8) 10/02/17 04:15 RBC 3.76 Mil/cmm (4.30-5.70) L 10/02/17 04:15 Hgb 10.3 gm/dL (12-16) L 10/02/17 04:15 Hct 31.7 % (41.0-60) L 10/02/17 04:15 MCV 84.3 fl (80-99) 10/02/17 04:15 MCH 27.3 pg (26.0-30.0) 10/02/17 04:15 MCHC Differential 32.4 pg (28.0-36.0) 10/02/17 04:15 RDW 18.2 % (11.5-20.0) 10/02/17 04:15 Plt Count 331 Th/cmm (150-400) 10/02/17 04:15 MPV 8.5 fl 10/02/17 04:15 Neutrophils % 82.8 % (40.0-80.0) H 10/02/17 04:15 Band Neutrophils % 1 % (0-10) 09/28/17 17:35 Lymphocytes % 10.7 % (20.0-50.0) L 10/02/17 04:15 Monocytes % 6.5 % (2.0-10.0) 10/02/17 04:15 Eosinophils % 0.0 % (0.0-5.0) 10/02/17 04:15 Basophils % 0.0 % (0.0-2.0) 10/02/17 04:15 Neutrophils (Manual) 83 % (40-80) H 09/28/17 17:35 Lymphocytes 10 % (20-50) L 09/28/17 17:35 Monocytes 3 % (2-10) 09/28/17 17:35 Eosinophils 0 % (0-5) 09/28/17 17:35 Basophils 0 % (0-3) 09/28/17 17:35 Myelocytes 3 % 09/28/17 17:35 Platelet Estimate INCREASED PLATELETS (NORMAL) 09/28/17 17:35 PT 11.0 SECONDS (9.5-11.5) 09/28/17 17:35 INR 1.06 (0.5-1.4) 09/28/17 17:35 PTT (Actin FS) 27.2 SECONDS (26.0-38.0) 09/28/17 17:35 Specimen Source Arterial 09/30/17 15:55 Sample Site Left Radial 09/30/17 15:55 pH 7.47 (7.35-7.45) H 09/30/17 15:55 pCO2 39.0 mmHg (35.0-45.0) 09/30/17 15:55 pO2 195.0 mmHg (80.0-100.0) H 09/30/17 15:55 HCO3 28.4 mEq/L (20.0-26.0) H 09/30/17 15:55 Base Excess 4.4 mEq/L (-3.0-3.0) H 09/30/17 15:55 O2 Saturation 100.0 % (92.0-100.0) 09/30/17 15:55 Osman Test yes 09/30/17 15:55 Vent Rate n/a 09/30/17 15:55 Inspired O2 40 09/30/17 15:55 Tidal Volume n/a 09/30/17 15:55 PEEP n/a 09/30/17 15:55 Pressure (ins/psv/peep) n/a 09/30/17 15:55 Critical Value emeka 09/30/17 15:55 Sodium 135 mEq/L (136-145) L 10/03/17 05:39 Potassium 4.1 mEq/L (3.5-5.1) 10/03/17 05:39 Chloride 102 mEq/L (98-107) 10/03/17 05:39 Carbon Dioxide 25.0 mEq/L (21.0-31.0) 10/03/17 05:39 Anion Gap 12.1 (7.0-16.0) 10/03/17 05:39 BUN 22 mg/dL (7-25) 10/03/17 05:39 Creatinine 0.4 mg/dL (0.7-1.3) L 10/03/17 05:39 Est GFR ( Amer) > 60.0 ml/min (>90) 10/03/17 05:39 Est GFR (Non-Af Amer) > 60.0 ml/min 10/03/17 05:39 BUN/Creatinine Ratio 55.0 10/03/17 05:39 Glucose 127 mg/dL (70-105) H 10/03/17 05:39 POC Glucose 130 MG/DL (70 - 105) H 10/03/17 05:26 Calcium 8.9 mg/dL (8.6-10.3) 10/03/17 05:39 Phosphorus 3.1 mg/dL (2.5-5.0) 10/03/17 05:39 Magnesium 2.0 mg/dL (1.9-2.7) 10/03/17 05:39 Total Bilirubin 0.3 mg/dL (0.3-1.0) 10/01/17 04:30 AST 12 U/L (13-39) L 10/01/17 04:30 ALT 23 U/L (7-52) 10/01/17 04:30 Alkaline Phosphatase 64 U/L (34-104) 10/01/17 04:30 Creatine Kinase 17 U/L (30-223) L 09/28/17 17:35 Troponin I 0.01 ng/mL (0.01-0.05) 09/28/17 17:35 B-Natriuretic Peptide 13.7 pg/mL (5.0-100.0) 09/28/17 17:35 Total Protein 7.1 gm/dL (6.0-8.3) 10/01/17 04:30 Albumin 2.8 gm/dL (4.2-5.5) L 10/01/17 04:30 Globulin 4.3 gm/dL 10/01/17 04:30 Albumin/Globulin Ratio 0.7 (1.0-1.8) L 10/01/17 04:30 Prealbumin 33 mg/dL (10-36) 09/29/17 06:10 Triglycerides 166 mg/dL (<150) H 09/29/17 06:10 Cholesterol 148 mg/dL (<200) 04/18/18 06:10 LDL Cholesterol Direct 70 mg/dL (75-193) L 09/28/17 17:35 HDL Cholesterol 40 mg/dL (23-92) 09/28/17 17:35 Amylase 79 U/L (29-103) 09/28/17 17:35 Lipase 15 U/L (11-82) 09/28/17 17:35 Urine Source CLEAN C 09/28/17 20:10 Urine Color YELLOW 09/28/17 20:10 Urine Clarity CLEAR (CLEAR) 09/28/17 20:10 Urine pH 8.0 (4.6 - 8.0) 09/28/17 20:10 Ur Specific [place] 1.020 (1.005-1.030) 09/28/17 20:10 Urine Protein NEGATIVE mg/dL (NEGATIVE) 09/28/17 20:10 Urine Glucose (UA) NEGATIVE mg/dL (NEGATIVE) 09/28/17 20:10 Urine Ketones NEGATIVE mg/dL (NEGATIVE) 09/28/17 20:10 Urine Blood TRACE (NEGATIVE) 09/28/17 20:10 Urine Nitrate NEGATIVE (NEGATIVE) 09/28/17 20:10 Urine Bilirubin NEGATIVE (NEGATIVE) 09/28/17 20:10 Urine Urobilinogen 0.2 E.U./dL (0.2 - 1.0) 09/28/17 20:10 Ur Leukocyte Esterase NEGATIVE (NEGATIVE) 09/28/17 20:10 Urine RBC 2-5 /hpf (0-5) H 09/28/17 20:10 Urine WBC 0-2 /hpf (0-5) 09/28/17 20:10 Ur Epithelial Cells RARE /lpf (FEW) 09/28/17 20:10 Amorphous Sediment MANY PHOSPHATES (NONE SEEN) 09/28/17 20:10 Urine Bacteria NONE SEEN /hpf (NONE SEEN) 09/28/17 20:10 - Physical Exam Vitals and I&O: Vital Signs Temp 97.6 F 10/03/17 08:00 Pulse 92 10/03/17 11:02 Resp 16 10/03/17 11:02 BP 114/71 10/03/17 08:00 Pulse Ox 99 10/03/17 11:02 Intake & Output 10/02/17 10/03/17 10/03/17 18:59 06:59 18:59 Intake Total 1402.5 2010 Output Total 1862 Balance 1402.5 148 Weight (lbs) 67.132 kg 79.379 kg 79.379 kg Intake: Intake, IV Amount 1402.5 300 Levofloxacin 500mg/100mL 100 500 mg In 100 ml @ 100 mls/hr IV Q24HR [facility] Rx#: [id number] Multivitamin Inj 10 ml In 1202.5 Dextrose 70% 500 ml In Amino Acids 8.5% 590 ml In Intralipids 20% 300 ml @ 60 mls/hr IV .[id number] [facility] Rx#:[id number] metroNIDAZOLE 500mg/NS 200 200 100mL 500 mg In 100 ml @ 100 mls/hr IV Q8HR [facility] Rx #:[id number] Tube Feeding 760 TPN/PPN 750 Other 200 Output: Drainage 12 WOUND VAC - SACRUM 12 Urine 1850 Other: Weight Source Bedscale Bedscale Bedscale Active Medications: Current Medications Acetaminophen (Tylenol 650mg/20.3ml Suspension) 650 mg GT Q4H PRN PRN Reason: pain/temp>101 Stop: 11/27/17 19:31 Acetylcysteine (Mucomyst 20%) 3 ml HHN Q4HRT [facility] Stop: 11/27/17 22:59 Last Admin: 10/03/17 10:33 Dose: 3 ml Albuterol/Ipratropium (Duoneb Neb) 3 ml HHN Q4HRT [facility] Stop: 11/27/17 22:59 Last Admin: 10/03/17 10:33 Dose: 3 ml Albuterol/Ipratropium (Duoneb Neb) 3 ml HHN Q2HRT PRN PRN Reason: Shortness of Breath Stop: 11/27/17 19:31 Docusate Sodium (Colace) 250 mg GT BID [facility] Stop: 11/28/17 08:59 Last Admin: 10/03/17 08:42 Dose: 250 mg Heparin Sodium (Porcine) (Heparin) 5,000 units SUBQ Q12HR [facility] Stop: 11/28/17 20:59 Last Admin: 10/03/17 08:40 Dose: 5,000 units Metronidazole (Flagyl) 500 mg in 100 mls @ 100 mls/hr IV Q8HR [facility] Stop: 11/27/17 20:59 Last Infusion: 10/03/17 06:25 Dose: Infused Levofloxacin (Levaquin Pb) 500 mg in 100 mls @ 100 mls/hr IV Q24HR [facility] Stop: 11/28/17 20:59 Last Infusion: 10/02/17 21:20 Dose: Infused Sodium Chloride (Nacl 0.9%) 1,000 mls @ 20 mls/hr IV .Q24H [facility] Stop: 11/30/17 15:59 Last Admin: 10/01/17 15:38 Dose: 20 mls/hr Multivitamins/Minerals 10 ml/Dextrose/ Amino Acids/Electrolytes/ Fat Emulsion Intravenous 1,400 mls @ 60 mls/hr IV .[id number] [facility] Stop: 10/29/17 14:59 Last Admin: 10/02/17 17:29 Dose: 50 mls/hr Insulin Aspart (Novolog Insulin Sliding Scale) 0 units SUBQ Q6HR AJIT PRN Reason: Protocol Stop: 11/28/17 17:59 Last Admin: 10/03/17 05:27 Dose: Not Given Magnesium Hydroxide (Milk Of Magnesia) 30 ml GT DAILY PRN PRN Reason: Constipation Stop: 11/27/17 19:31 Methylprednisolone Sodium Succinate (Solu-Medrol) 60 mg IV Q8HR [facility] Stop: 11/29/17 14:55 Last Admin: 10/03/17 05:23 Dose: 60 mg Midodrine (Proamatine) 10 mg GT Q8HR [facility] Stop: 11/28/17 12:59 Last Admin: 10/03/17 05:23 Dose: 10 mg Miscellaneous (Vte Chemical Prophylaxis Screen/ Admission) [facility] PRN PRN PRN Reason: PROTOCOL Stop: 11/28/17 09:58 Miscellaneous (Probiotic Screen) [facility] PRN PRN PRN Reason: PROTOCOL Stop: 11/28/17 11:44 Morphine Sulfate (Morphine) 1 mg IVP Q4H PRN PRN Reason: Pain (Severe) Ondansetron HCl (Zofran) 4 mg IV Q8HR PRN PRN Reason: Nausea / Vomiting Stop: 11/27/17 19:31 Pantoprazole Sodium (Protonix) 40 mg IVP DAILY [facility] Stop: 11/29/17 08:59 Last Admin: 10/03/17 08:43 Dose: 40 mg Zinc Sulfate (Zinc Sulfate) 220 mg GT DAILY [facility] Stop: 11/28/17 08:59 Last Admin: 10/03/17 08:43 Dose: 220 mg General: weak HEENT: NC/AT, PERRLA Neck: Supple Lungs: congested, rales, ronchi Cardiovascular: RRR, Normal S1, Normal S2, without murmur Abdomen: soft, tender, globular, non-distended, +GT, positive bowel sound Extremities: excoriation, contracture, other (sacral ulcer) Neurological: unable to follow command - Procedures Procedures: Procedures Procedure Code Date BYPASS DESCENDING COLON TO CUTANEOUS, OPEN APPROACH [id number] 08/14/17 COLOSTOMY 89859 08/14/17 CYSTOSCOPY & URETER CATHETER 00474 08/14/17 CECILY BONE 20 SQ CM/< [id number] 08/14/17 CECILY SUBQ TISSUE 20 SQ CM/< [id number] 09/28/17 DRAINAGE OF BLADDER WITH DRAINAGE DEVICE, ENDO [id number] 08/14/17 EXCISION OF BACK SUBCU/FASCIA, OPEN APPROACH [id number] 09/28/17 EXCISION OF DESCENDING COLON, OPEN APPROACH [id number] 09/28/17 EXCISION OF SACRUM, OPEN APPROACH [id number] 08/14/17 EXTIRPATION OF MATTER FROM BLADDER, ENDO [id number] 08/14/17 PARTIAL REMOVAL OF COLON [id number] 09/28/17 Internal Medicine Assmt/Plan - Assessment Assessment: - Assessment Assessment: -prolapsed colostomy s/p exploratory laparotomy, resection of descending colon and side to side anastomosis -s/p excisional debridement of sacral decubitus ulceration with wound vac - s/pexcisional debridement of right foot ulcer -s/p excisional debridement left foot ulcer -acute uti -multiple sclerosis -schizophrenia - Plan Plan: continue with wound care ppn for nutritional support continue ventilator support, pulmo is following will await for extubation cbc/bmp in am continue ivabx continue current plan of care pt seen and examined on vnt support sp colostomy repair, resection, sp i and d of wounds dw rn see orders - Plan Plan: cpm dw dr llanes and atil Nutritional Asmnt/Malnutr-PDOC - Dietary Evaluation Malnutrition Findings (Please click <Entered> for more info): Nutritional Asmnt/Malnutrition Start: 09/29/17 16: 21 Text: Status: Complete Freq: Document 09/29/17 16:21 LCHENG (Rec: 09/29/17 16:27 LCHENG [id number]) Nutritional Asmnt/Malnutrition Patient General Information Nutritional Screening High Risk Consult Diagnosis prolapsed colostomy Pertinent Medical Hx/Surgical Hx HTN, CVA/TIA, PUD/GERD, arthritis, anemia, pultiple sclerosis, decubitus ulcer, PEG/Gtube, colostomy Subjective Information Consult received for stage 4 sacral pressure ulcer. pt had debridement and resection of descending colon today. Pt now on PPN. Current Diet Order/ Nutrition Support PPN D10%, AA4.25%, lip 20% 100ml at 50ml/hr Pertinent Medications D5-0.9%ns at 80ml/hr (326kcal) , novolog, levaquin, zinc Pertinent Labs 09/29 Cr 0.4, glucose 126, POC 137 Nutritional Hx/Data Height 1.65 m Height (Calculated Centimeters) 165.1 Current Weight (lbs) 67.132 kg Weight (Calculated Kilograms) 67.1 Weight (Calculated Grams) 45638.7 [place] Weight 136 Body Mass Index (BMI) 24.6 Weight Status Approriate GI Symptoms GI Symptoms None Last BM no record Difficult in: None Skin Integrity/Comment: decubitus ulcer to right toe, left toe and sacrum Current %PO Poor (25-49%) Estimated Nutritional Goals BEE in Kcals: Using Current wt Calories/Kcals/Kg 25-30 Kcals Calculated 8081-3806 Protein: Using Current wt Protein g/k.2-1.4 Protein Calculated 80-94 Fluid: ml 1675-2010ml (1ml/kcal) Nutritional Problem 1. Problem Problem increased nutrition needs ( calorie and protein( Etiology increased metabolic demand Signs/Symptoms: stage 4 pressure ulcer Malnutrition Alert Protein-Calorie Malnutrition N/A Is there a minimum of two criteria No selected? Query Text:Check all the applicable criteria. A minimum of two criteria are recommended for diagnosis of either severe or non-severe malnutrition. Intervention/Recommendation Comments 1. Recommend PPN D10% AA5% Lipid 10% 200ml at 75ml/hr as tolerated. It provides 1372kcal, 180g CCHO (1.8mg/kg/ min), 90g protein, meeting 100 % of nutritional needs with D5 at 80ml/hr. 2. Monitor PPN tolerance, wt daily, skin integrity and labs 3. F/U as high risk in 2-3 days, 10/01-10/02 Expected Outcomes/Goals Expected Outcomes/Goals 1. Pt to meet at least 75% of nutritional needs via nutrition support with tolerance 2. Wt stability, wound to heal , labs to approach WNL.
[2017-10-03] MEDS: Levofloxacin 500mg/100mL Premix Bag IV SCH (21:30)
[2017-10-04] MEDS: INSULIN ASPART SLIDING SCALE 100 UNITS/ML UNIT SUBQ SCH ×4 (01:02→18:32)
[2017-10-04] MEDS: Albuterol/Ipratropium Neb 3 ML AERS HHN SCH ×5 (03:37→19:46)
[2017-10-04] MEDS: metroNIDAZOLE 500mg/NS 100mL 500 MG/100 ML BAG IV SCH ×2 (05:44→15:43)
[2017-10-04 07:04] LABS: ALB/GLOB RATIO 0.7 (1.0-1.8); ALBUMIN 2.7 gm/dL (4.2-5.5); ALKALINE PHOSPHATASE 79 U/L (34-104); ANION GAP 10.9 (7.0-16.0); BILIRUBIN,TOTAL 0.2 mg/dL (0.3-1.0); BUN - UREA NITROGEN 22 mg/dL (7-25); CALCIUM SERUM 8.8 mg/dL (8.6-10.3); CHLORIDE 103 mEq/L (98-107); CREATININE - SERUM 0.4 mg/dL (0.7-1.3); GFR AFRICAN-AMERICAN > 60.0 ml/min (>90); GFR NON AFRICAN-AMERICAN > 60.0 ml/min; GLUCOSE 120 mg/dL (70-105); MAGNESIUM 1.9 mg/dL (1.9-2.7); PHOSPHOROUS 2.8 mg/dL (2.5-5.0); POTASSIUM SERUM 3.9 mEq/L (3.5-5.1); SGOT 12 U/L (13-39); SGPT/ALT 22 U/L (7-52); SODIUM SERUM 138 mEq/L (136-145); TOTAL PROTEIN,SERUM 6.5 gm/dL (6.0-8.3)
--- NOTE | 2017-10-04 08:18 | Diagnostic Imaging Report ---
Exam: Portable chest x-ray. HISTORY: Shortness of breath. Findings: Portable examination of the chest at 0805 hours reviewed and compared to the prior study of 10/02/2017 demonstrates unchanged position of right jugular catheter terminates in superior vena cava. No acute pulmonic infiltrates or effusions are noted. The costophrenic angles are clear. Distended stomach under left hemidiaphragm is appreciated. Mild congestion cannot be excluded. Bony thorax is intact. Aorta is calcified. IMPRESSION: No acute pulmonic infiltrates, essentially unchanged compared to prior examination of 10/02/2017.
[2017-10-04] MEDS: Docusate Sodium 100 mg/10 mL UD GT SCH ×2 (10:30→18:33)
--- NOTE | 2017-10-04 11:09 | General Progress Note ---
Subjective - Review of Systems Service Date: 10/04/17 Events since last encounter: labs ok minimal colostomy output tolerating GT feedings Objective - Results Result Diagrams: 10/02/17 04:15 10/04/17 06:00 Recent Labs: Laboratory Last Values WBC 10.3 Th/cmm (4.8-10.8) 10/02/17 04:15 RBC 3.76 Mil/cmm (4.30-5.70) L 10/02/17 04:15 Hgb 10.3 gm/dL (12-16) L 10/02/17 04:15 Hct 31.7 % (41.0-60) L 10/02/17 04:15 MCV 84.3 fl (80-99) 10/02/17 04:15 MCH 27.3 pg (26.0-30.0) 10/02/17 04:15 MCHC Differential 32.4 pg (28.0-36.0) 10/02/17 04:15 RDW 18.2 % (11.5-20.0) 10/02/17 04:15 Plt Count 331 Th/cmm (150-400) 10/02/17 04:15 MPV 8.5 fl 10/02/17 04:15 Neutrophils % 82.8 % (40.0-80.0) H 10/02/17 04:15 Band Neutrophils % 1 % (0-10) 09/28/17 17:35 Lymphocytes % 10.7 % (20.0-50.0) L 10/02/17 04:15 Monocytes % 6.5 % (2.0-10.0) 10/02/17 04:15 Eosinophils % 0.0 % (0.0-5.0) 10/02/17 04:15 Basophils % 0.0 % (0.0-2.0) 10/02/17 04:15 Neutrophils (Manual) 83 % (40-80) H 09/28/17 17:35 Lymphocytes 10 % (20-50) L 09/28/17 17:35 Monocytes 3 % (2-10) 09/28/17 17:35 Eosinophils 0 % (0-5) 09/28/17 17:35 Basophils 0 % (0-3) 09/28/17 17:35 Myelocytes 3 % 09/28/17 17:35 Platelet Estimate INCREASED PLATELETS (NORMAL) 09/28/17 17:35 PT 11.0 SECONDS (9.5-11.5) 09/28/17 17:35 INR 1.06 (0.5-1.4) 09/28/17 17:35 PTT (Actin FS) 27.2 SECONDS (26.0-38.0) 09/28/17 17:35 Specimen Source Arterial 09/30/17 15:55 Sample Site Left Radial 09/30/17 15:55 pH 7.47 (7.35-7.45) H 09/30/17 15:55 pCO2 39.0 mmHg (35.0-45.0) 09/30/17 15:55 pO2 195.0 mmHg (80.0-100.0) H 09/30/17 15:55 HCO3 28.4 mEq/L (20.0-26.0) H 09/30/17 15:55 Base Excess 4.4 mEq/L (-3.0-3.0) H 09/30/17 15:55 O2 Saturation 100.0 % (92.0-100.0) 09/30/17 15:55 Osman Test yes 09/30/17 15:55 Vent Rate n/a 09/30/17 15:55 Inspired O2 40 09/30/17 15:55 Tidal Volume n/a 09/30/17 15:55 PEEP n/a 09/30/17 15:55 Pressure (ins/psv/peep) n/a 09/30/17 15:55 Critical Value emeka 09/30/17 15:55 Sodium 138 mEq/L (136-145) 10/04/17 06:00 Potassium 3.9 mEq/L (3.5-5.1) 10/04/17 06:00 Chloride 103 mEq/L (98-107) 10/04/17 06:00 Carbon Dioxide 28.0 mEq/L (21.0-31.0) 10/04/17 06:00 Anion Gap 10.9 (7.0-16.0) 10/04/17 06:00 BUN 22 mg/dL (7-25) 10/04/17 06:00 Creatinine 0.4 mg/dL (0.7-1.3) L 10/04/17 06:00 Est GFR ( Amer) > 60.0 ml/min (>90) 10/04/17 06:00 Est GFR (Non-Af Amer) > 60.0 ml/min 10/04/17 06:00 BUN/Creatinine Ratio 55.0 10/04/17 06:00 Glucose 120 mg/dL (70-105) H 10/04/17 06:00 POC Glucose 134 MG/DL (70 - 105) H 10/04/17 05:43 Calcium 8.8 mg/dL (8.6-10.3) 10/04/17 06:00 Phosphorus 2.8 mg/dL (2.5-5.0) 10/04/17 06:00 Magnesium 1.9 mg/dL (1.9-2.7) 10/04/17 06:00 Total Bilirubin 0.2 mg/dL (0.3-1.0) L 10/04/17 06:00 AST 12 U/L (13-39) L 10/04/17 06:00 ALT 22 U/L (7-52) 10/04/17 06:00 Alkaline Phosphatase 79 U/L (34-104) 10/04/17 06:00 Creatine Kinase 17 U/L (30-223) L 09/28/17 17:35 Troponin I 0.01 ng/mL (0.01-0.05) 09/28/17 17:35 B-Natriuretic Peptide 13.7 pg/mL (5.0-100.0) 09/28/17 17:35 Total Protein 6.5 gm/dL (6.0-8.3) 10/04/17 06:00 Albumin 2.7 gm/dL (4.2-5.5) L 10/04/17 06:00 Globulin 3.8 gm/dL 10/04/17 06:00 Albumin/Globulin Ratio 0.7 (1.0-1.8) L 10/04/17 06:00 Prealbumin 33 mg/dL (10-36) 09/29/17 06:10 Triglycerides 166 mg/dL (<150) H 09/29/17 06:10 Cholesterol 148 mg/dL (<200) 09/29/17 06:10 LDL Cholesterol Direct 70 mg/dL (75-193) L 09/28/17 17:35 HDL Cholesterol 40 mg/dL (23-92) 09/28/17 17:35 Amylase 79 U/L (29-103) 09/28/17 17:35 Lipase 15 U/L (11-82) 09/28/17 17:35 Urine Source CLEAN C 09/28/17 20:10 Urine Color YELLOW 09/28/17 20:10 Urine Clarity CLEAR (CLEAR) 09/28/17 20:10 Urine pH 8.0 (4.6 - 8.0) 09/28/17 20:10 Ur Specific [place] 1.020 (1.005-1.030) 09/28/17 20:10 Urine Protein NEGATIVE mg/dL (NEGATIVE) 09/28/17 20:10 Urine Glucose (UA) NEGATIVE mg/dL (NEGATIVE) 09/28/17 20:10 Urine Ketones NEGATIVE mg/dL (NEGATIVE) 09/28/17 20:10 Urine Blood TRACE (NEGATIVE) 09/28/17 20:10 Urine Nitrate NEGATIVE (NEGATIVE) 09/28/17 20:10 Urine Bilirubin NEGATIVE (NEGATIVE) 09/28/17 20:10 Urine Urobilinogen 0.2 E.U./dL (0.2 - 1.0) 09/28/17 20:10 Ur Leukocyte Esterase NEGATIVE (NEGATIVE) 09/28/17 20:10 Urine RBC 2-5 /hpf (0-5) H 09/28/17 20:10 Urine WBC 0-2 /hpf (0-5) 09/28/17 20:10 Ur Epithelial Cells RARE /lpf (FEW) 09/28/17 20:10 Amorphous Sediment MANY PHOSPHATES (NONE SEEN) 09/28/17 20:10 Urine Bacteria NONE SEEN /hpf (NONE SEEN) 09/28/17 20:10 - Physical Exam Vitals and I&O: Vital Signs Temp 97.6 F 10/04/17 08:00 Pulse 98 10/04/17 08:00 Resp 17 10/04/17 08:00 BP 115/67 10/04/17 08:00 Pulse Ox 96 10/04/17 08:00 Intake & Output 10/03/17 10/04/17 10/04/17 18:59 06:59 18:59 Intake Total 1000 900 Output Total 805 1010 Balance 195 -110 Weight (lbs) 79.379 kg 79.832 kg Intake: Intake, IV Amount 100 100 metroNIDAZOLE 500mg/NS 100 100 100mL 500 mg In 100 ml @ 100 mls/hr IV Q8HR [facility] Rx #:[id number] Tube Feeding 600 600 Other 300 200 Output: Drainage 5 WOUND VAC - SACRUM 5 Urine 800 1000 Stool 0 Other 10 Other: Stool Characteristics Liquid Liquid Weight Source Bedscale Bedscale Active Medications: Current Medications Acetaminophen (Tylenol 650mg/20.3ml Suspension) 650 mg GT Q4H PRN PRN Reason: pain/temp>101 Stop: 11/27/17 19:31 Acetylcysteine (Mucomyst 20%) 3 ml HHN Q4HRT [facility] Stop: 11/27/17 22:59 Last Admin: 10/04/17 10:50 Dose: 3 ml Albuterol/Ipratropium (Duoneb Neb) 3 ml HHN Q4HRT [facility] Stop: 11/27/17 22:59 Last Admin: 10/04/17 10:47 Dose: 3 ml Albuterol/Ipratropium (Duoneb Neb) 3 ml HHN Q2HRT PRN PRN Reason: Shortness of Breath Stop: 11/27/17 19:31 Docusate Sodium (Colace) 250 mg GT BID [facility] Stop: 11/28/17 08:59 Last Admin: 10/04/17 10:30 Dose: 250 mg Heparin Sodium (Porcine) (Heparin) 5,000 units SUBQ Q12HR [facility] Stop: 11/28/17 20:59 Last Admin: 10/04/17 10:28 Dose: 5,000 units Metronidazole (Flagyl) 500 mg in 100 mls @ 100 mls/hr IV Q8HR [facility] Stop: 11/27/17 20:59 Last Admin: 10/04/17 05:44 Dose: 100 mls/hr Levofloxacin (Levaquin Pb) 500 mg in 100 mls @ 100 mls/hr IV Q24HR [facility] Stop: 11/28/17 20:59 Last Admin: 10/03/17 21:30 Dose: 100 mls/hr Sodium Chloride (Nacl 0.9%) 1,000 mls @ 20 mls/hr IV .Q24H [facility] Stop: 11/30/17 15:59 Last Admin: 10/01/17 15:38 Dose: 20 mls/hr Insulin Aspart (Novolog Insulin Sliding Scale) 0 units SUBQ Q6HR [facility] PRN Reason: Protocol Stop: 11/28/17 17:59 Last Admin: 10/04/17 05:55 Dose: Not Given Magnesium Hydroxide (Milk Of Magnesia) 30 ml GT DAILY PRN PRN Reason: Constipation Stop: 11/27/17 19:31 Methylprednisolone Sodium Succinate (Solu-Medrol) 60 mg IV Q8HR [facility] Stop: 11/29/17 14:55 Last Admin: 10/04/17 05:49 Dose: 60 mg Midodrine (Proamatine) 10 mg GT Q8HR [facility] Stop: 11/28/17 12:59 Last Admin: 10/04/17 05:45 Dose: 10 mg Miscellaneous (Vte Chemical Prophylaxis Screen/ Admission) 1 ea PRN PRN PRN Reason: PROTOCOL Stop: 11/28/17 09:58 Miscellaneous (Probiotic Screen) 1 ea PRN PRN PRN Reason: PROTOCOL Stop: 11/28/17 11:44 Morphine Sulfate (Morphine) 1 mg IVP Q4H PRN PRN Reason: Pain (Severe) Ondansetron HCl (Zofran) 4 mg IV Q8HR PRN PRN Reason: Nausea / Vomiting Stop: 11/27/17 19:31 Pantoprazole Sodium (Protonix) 40 mg IVP DAILY AJIT Stop: 11/29/17 08:59 Last Admin: 10/04/17 10:31 Dose: 40 mg Zinc Sulfate (Zinc Sulfate) 220 mg GT DAILY AJIT Stop: 11/28/17 08:59 Last Admin: 10/04/17 10:31 Dose: 220 mg - Procedures Procedures: Procedures Procedure Code Date BYPASS DESCENDING COLON TO CUTANEOUS, OPEN APPROACH [id number] 08/14/17 COLOSTOMY 65373 08/14/17 CYSTOSCOPY & URETER CATHETER 64152 08/14/17 CECILY BONE 20 SQ CM/< 54430 08/14/17 CECILY SUBQ TISSUE 20 SQ CM/< 23794 09/28/17 DRAINAGE OF BLADDER WITH DRAINAGE DEVICE, ENDO [id number] 08/14/17 EXCISION OF BACK SUBCU/FASCIA, OPEN APPROACH [id number] 09/28/17 EXCISION OF DESCENDING COLON, OPEN APPROACH [id number] 09/28/17 EXCISION OF SACRUM, OPEN APPROACH [id number] 08/14/17 EXTIRPATION OF MATTER FROM BLADDER, ENDO [id number] 08/14/17 PARTIAL REMOVAL OF COLON 61139 09/28/17 Nutritional Asmnt/Malnutr-PDOC - Dietary Evaluation Malnutrition Findings (Please click <Entered> for more info): Nutritional Asmnt/Malnutrition Start: 09/29/17 16: 21 Text: Status: Complete Freq: Document 09/29/17 16:21 PROSPER (Rec: 09/29/17 16:27 [id number]) Nutritional Asmnt/Malnutrition Patient General Information Nutritional Screening High Risk Consult Diagnosis prolapsed colostomy Pertinent Medical Hx/Surgical Hx HTN, CVA/TIA, PUD/GERD, arthritis, anemia, pultiple sclerosis, decubitus ulcer, PEG/Gtube, colostomy Subjective Information Consult received for stage 4 sacral pressure ulcer. pt had debridement and resection of descending colon today. Pt now on PPN. Current Diet Order/ Nutrition Support PPN D10%, AA4.25%, lip 20% 100ml at 50ml/hr Pertinent Medications D5-0.9%ns at 80ml/hr (326kcal) , novolog, levaquin, zinc Pertinent Labs 09/29 Cr 0.4, glucose 126, POC 137 Nutritional Hx/Data Height 1.65 m Height (Calculated Centimeters) 165.1 Current Weight (lbs) 67.132 kg Weight (Calculated Kilograms) 67.1 Weight (Calculated Grams) 37062.7 [place] Body Weight 136 Body Mass Index (BMI) 24.6 Weight Status Approriate GI Symptoms GI Symptoms None Last BM no record Difficult in: None Skin Integrity/Comment: decubitus ulcer to right toe, left toe and sacrum Current %PO Poor (25-49%) Estimated Nutritional Goals BEE in Kcals: Using Current wt Calories/Kcals/Kg 25-30 Kcals Calculated 9395-0899 Protein: Using Current wt Protein g/k.2-1.4 Protein Calculated 80-94 Fluid: ml 1675-2010ml (1ml/kcal) Nutritional Problem 1. Problem Problem increased nutrition needs ( calorie and protein( Etiology increased metabolic demand Signs/Symptoms: stage 4 pressure ulcer Malnutrition Alert Protein-Calorie Malnutrition N/A Is there a minimum of two criteria No selected? Query Text:Check all the applicable criteria. A minimum of two criteria are recommended for diagnosis of either severe or non-severe malnutrition. Intervention/Recommendation Comments 1. Recommend PPN D10% AA5% Lipid 10% 200ml at 75ml/hr as tolerated. It provides 1372kcal, 180g CCHO (1.8mg/kg/ min), 90g protein, meeting 100 % of nutritional needs with D5 at 80ml/hr. 2. Monitor PPN tolerance, wt daily, skin integrity and labs 3. F/U as high risk in 2-3 days, 10/01-10/02 Expected Outcomes/Goals Expected Outcomes/Goals 1. Pt to meet at least 75% of nutritional needs via nutrition support with tolerance 2. Wt stability, wound to heal , labs to approach WNL.
[2017-10-05] MEDS ORDERED: Venelex 60gm Tube TP SCH (09:00)
--- NOTE | 2017-10-05 12:48 | Discharge Summary ---
DATE OF DISCHARGE: 10/04/2017 CHIEF COMPLAINT: Transfer from [facility] due to prolapsed colostomy. DISCHARGE DIAGNOSES: Prolapsed colostomy/intussusception of the bowel, status post resection, status post incision and debridement of sacral decubitus ulcer with wound VAC, status post incision and debridement of right foot ulcer and a left foot ulcer, multiple sclerosis, schizoaffective disorder, ___. HISTORY: This is 57-year-old -[place] male who was brought in from [place] [facility]term acute [facility] secondary to the patient's prolapsed colostomy. The patient needed I and D of the wounds as well. The patient is being followed by Dr. Carrera, Surgery. PHYSICAL EXAMINATION: VITAL SIGNS: Blood pressure 100/70, pulse 90, temperature 98.2. GENERAL: An elderly male, appears stated age. NECK: Supple. LUNGS: Breath sounds, few rhonchi. HEART: Regular rate and rhythm without appreciable murmurs. ABDOMEN: Soft, globular. Prolapsed colostomy. EXTREMITIES: Positive pulses, also wound VAC. NEUROLOGIC: Limited. HOSPITAL COURSE: The patient was admitted to telemetry and underwent surgery and then transferred to ICU and initially agreed with it. Actually the patient again was admitted from Pulmonary. The patient is on Levaquin as well as Flagyl and cleared for discharge. Respiratory rate 92. Feeding on TPN. CONDITION ON DISCHARGE: Fair. DISCHARGE INSTRUCTIONS: Again, to be transferred back to [place] for continued care and treatment. [facility]# [id number]
== END 2017-10-04 21:20 | DRG 231 ==
LOC: ER 17:06 → TELE 19:36 → ICU 09-29 11:27 → TELE 10-02 15:52
PROVIDERS: ADMIT Internal Medicine; ATTEND Internal Medicine
PROC: 0DBM0ZZ Excision of Descending Colon, Open Approach (ICD-10-PCS; principal; 2017-09-29)
PROC: 0JB70ZZ Excision of Back Subcutaneous Tissue and Fascia, Open Approach (ICD-10-PCS; 2017-09-29)
PROC: 0HBNXZZ Excision of Left Foot Skin, External Approach (ICD-10-PCS; 2017-09-29)
PROC: 0HBMXZZ Excision of Right Foot Skin, External Approach (ICD-10-PCS; 2017-09-29)
PROC: 3E0436Z Introduction of Nutritional Substance into Central Vein, Percutaneous Approach (ICD-10-PCS; 2017-10-02)
DX: K94.09 Other complications of colostomy (principal); L89.159 Pressure ulcer of sacral region, unspecified stage; K56.1 Intussusception; G35 Multiple sclerosis; Z74.01 Bed confinement status; I73.9 Peripheral vascular disease, unspecified; E87.1 Hypo-osmolality and hyponatremia; I10 Essential (primary) hypertension; L97.529 Non-pressure chronic ulcer of other part of left foot with unspecified severity; L97.519 Non-pressure chronic ulcer of other part of right foot with unspecified severity; N39.0 Urinary tract infection, site not specified; F25.9 Schizoaffective disorder, unspecified; Y83.8 Other surgical procedures as the cause of abnormal reaction of the patient, or of later complication, without mention of misadventure at the time of the procedure; Y92.89 Other specified places as the place of occurrence of the external cause
CPT/HCPCS: 36415-UA; 36600-90; 71045-TC; 80048-TC; 80053-TC; 80061-TC; 81001-TC; 82150-TC; 82465-TC; 82550-TC; 82803-TC; 82948-90; 83690-TC; 83735-TC; 83880-TC; 84100-TC; 84134-90; 84478-TC; 84484-TC; 85007-TC; 85025-TC; 85027-TC; 85610-TC; 87070; 90799; 93005; 94002; 94003; 94640; 94667; 94668; 94760; 96372; 99201; C9113; J1644; J1815; J1956; J2405; J2704; J2930; J3010; J7030; J7040; J7042; V2790; X6024; X6258; X6494; X6598; Z7610